=== PATIENT | male | born 1960 | race Caucasian/White ===

== ENCOUNTER → 2020-12-17 | Outpatient (CLI) | payer OTHER, MEDICAID ==
[2020-12-17 11:49] LABS: BASO % 0.2 % (0.0-1.0); EOS # 0.1 10^3/uL (0.0-0.5); EOS % 1.1 % (0.0-3.0); LYMPH # 1.3 10^3/uL (1.5-5.0); LYMPH % 15.5 % (24.0-44.0); MEAN CORPUSCULAR HEMOGLOBIN 29.5 pg (27.0-33.0); MEAN CORPUSCULAR HGB CONC 33.3 g/dl (32.0-36.5); MEAN CORPUSCULAR VOLUME 88.6 fl (80.0-96.0); MONO # 0.6 10^3/uL (0.0-0.8); MONO % 6.9 % (2.0-8.0); NEUTROPHILS # 6.5 10^3/uL (1.5-8.5); NEUTROPHILS % 76.1 % (36.0-66.0); PLATELET COUNT, AUTOMATED 296 10^3/uL (150-450); RED BLOOD COUNT 4.74 10^6/uL (4.30-6.10); WHITE BLOOD COUNT 8.5 10^3/uL (4.0-10.0)
[2020-12-17 12:25] LABS: ALBUMIN 3.9 GM/DL (3.2-5.2); ALT/SGPT 13 U/L (12-78); BILIRUBIN,TOTAL 0.7 MG/DL (0.2-1.0); BLOOD UREA NITROGEN 18 MG/DL (7-18); CALCIUM LEVEL 9.3 MG/DL (8.8-10.2); CARBON DIOXIDE LEVEL 28 MEQ/L (21-32); CHLORIDE LEVEL 106 MEQ/L (98-107); CHOLESTEROL LEVEL 145 MG/DL (<200); CHOLESTEROL RISK RATIO 2.735 (<5); CREATININE FOR GFR 0.94 MG/DL (0.70-1.30); GLOMERULAR FILTRATION RATE > 60.0 (>49); GLUCOSE, FASTING 90 MG/DL (70-100); HDL CHOLESTEROL 53 MG/DL (>40); LDL CHOLESTEROL 81 MG/DL (<100); MAGNESIUM LEVEL 1.9 MG/DL (1.8-2.4); NON-HDL-C 92 MG/DL; POTASSIUM SERUM 4.4 MEQ/L (3.5-5.1); SODIUM LEVEL 138 MEQ/L (136-145); TOTAL PROTEIN 7.1 GM/DL (6.4-8.2); TRIGLYCERIDES LEVEL 55 MG/DL (<150)
[2020-12-17 13:06] LABS: HEMOGLOBIN A1c 5.1 %
[2020-12-18 23:07] LABS: PSA TOTAL 0.6 ng/mL (0.0-4.0)
== END ==
LOC: M WUC 08:04
PROVIDERS: ATTEND Nurse Practitioner Family
DX: Z12.5 Encounter for screening for malignant neoplasm of prostate (principal); E78.2 Mixed hyperlipidemia; R25.2 Cramp and spasm; K22.70 Barrett's esophagus without dysplasia; Z79.899 Other long term (current) drug therapy

== ENCOUNTER 2020-12-27 10:00 | Outpatient (RCR) | payer OTHER, MEDICAID | END 2020-12-30 | LOC: M PT 10:00 | PROVIDERS: ATTEND Nurse Practitioner Family | DX: S88.112A Complete traumatic amputation at level between knee and ankle, left lower leg, initial encounter (principal) ==

== ENCOUNTER → 2021-05-07 | Outpatient (REF) | payer OTHER, MEDICAID | LOC: M SFHCLERA 11:35 | PROVIDERS: ATTEND Family Medicine | DX: R05.8 Other specified cough (principal) ==

== ENCOUNTER 2021-07-25 13:02 | Emergency (ER) | payer OTHER, MEDICAID ==
[~2021-07-25] VITALS: Ht 182.9 cm; Wt 57.3 kg
[2021-07-25 16:05] VITALS: BP 173/85
== END 2021-07-25 16:08 | disposition home or self-care (01) ==
LOC: M ED 13:02
DX: M79.661 Pain in right lower leg (principal); M50.223 Other cervical disc displacement at C6-C7 level; I73.1 Thromboangiitis obliterans [Buerger's disease]; I10 Essential (primary) hypertension; K21.9 Gastro-esophageal reflux disease without esophagitis; F17.200 Nicotine dependence, unspecified, uncomplicated; Z88.0 Allergy status to penicillin

== ENCOUNTER → 2021-09-03 | Outpatient (CLI) | payer MEDICAID, OTHER | LOC: M RAD 15:29 | PROVIDERS: ATTEND Orthopaedic Surgery | DX: M47.812 Spondylosis without myelopathy or radiculopathy, cervical region (principal) ==

== ENCOUNTER 2021-09-09 09:56 | Emergency (ER) | payer OTHER ==
[~2021-09-09] VITALS: Ht 182.9 cm; Wt 56.4 kg
[2021-09-09 09:56] VITALS: BP 158/72
[2021-09-09] MEDS ORDERED: LOSA50TA28 (11:03)
[2021-09-09] MEDS ORDERED: FINA5TAB2 (11:03)
[2021-09-09] MEDS ORDERED: SIMV10TA21 (11:03)
[2021-09-09] MEDS ORDERED: ALBU8.5H (11:03)
[2021-09-09] MEDS ORDERED: XARE20TA (11:03)
[2021-09-09] MEDS ORDERED: ALBU2.5V10 (11:03)
[2021-09-09] MEDS ORDERED: FAMO20TA5 (11:03)
[2021-09-09] MEDS ORDERED: PENT400T22 (11:03)
[2021-09-09] MEDS ORDERED: TRAZ-252 (11:03)
[2021-09-09] MEDS ORDERED: OMEP-173 (11:03)
[2021-09-09] MEDS ORDERED: ONDA8TAB8 (11:03)
[2021-09-09] MEDS ORDERED: DULO1CAP5 (11:03)
[2021-09-09] MEDS ORDERED: DULO1CAP6 (11:03)
== END 2021-09-09 15:24 | disposition left against medical advice (07) ==
LOC: M ED 09:56
DX: Z53.21 Procedure and treatment not carried out due to patient leaving prior to being seen by health care provider (principal)

== ENCOUNTER → 2022-04-07 | Outpatient (REF) | payer OTHER, MEDICAID ==
[~2022-04-07] MED LIST: ALBU2.5V10; ALBU8.5H; DULO1CAP5; DULO1CAP6; FAMO20TA5; FINA5TAB2; LOSA50TA28; OMEP-173; ONDA8TAB8; PENT400T22; SIMV10TA21; TRAZ-252; XARE20TA
== END ==
LOC: M SFHCPLAZ 10:00
PROVIDERS: ATTEND Physician Assistant
DX: R09.89 Other specified symptoms and signs involving the circulatory and respiratory systems (principal)

== ENCOUNTER 2022-07-18 22:46 | Emergency (ER) | payer OTHER, MEDICAID ==
[~2022-07-18] VITALS: Ht 182.9 cm; Wt 54.5 kg
[2022-07-18 23:44] LABS: BASO # 0.1 10^3/uL (0.0-0.2); BASO % 0.3 % (0.0-1.0); EOS # 0.1 10^3/uL (0.0-0.5); EOS % 0.9 % (0.0-3.0); HEMATOCRIT 39.4 % (42.0-52.0); HEMOGLOBIN 12.9 g/dl (13.5-17.5); LYMPH # 2.9 10^3/uL (1.5-5.0); LYMPH % 20.3 % (24.0-44.0); MEAN CORPUSCULAR HEMOGLOBIN 28.2 pg (27.0-33.0); MEAN CORPUSCULAR HGB CONC 32.7 g/dl (32.0-36.5); MONO # 1.2 10^3/uL (0.0-0.8); MONO % 8.2 % (2.0-8.0); NEUTROPHILS % 69.5 % (36.0-66.0); PLATELET COUNT, AUTOMATED 304 10^3/uL (150-450); RED BLOOD COUNT 4.58 10^6/uL (4.30-6.10); WHITE BLOOD COUNT 14.4 10^3/uL (4.0-10.0)
[2022-07-19 00:49] LABS: CK-MB VALUE MASS 2.2 NG/ML (<3.6)
[2022-07-19 00:52] LABS: ALBUMIN 3.6 G/DL (3.2-5.2); ALKALINE PHOSPHATASE 48 U/L (46-116); ALT/SGPT 11 U/L (7.0-40); AST/SGOT 15 U/L (<34); BILIRUBIN,DIRECT < 0.1 MG/DL (<0.4); BILIRUBIN,TOTAL 0.3 MG/DL (0.3-1.2); BLOOD UREA NITROGEN 10 MG/DL (9-23); CALCIUM LEVEL 8.9 MG/DL (8.3-10.6); CARBON DIOXIDE LEVEL 24 MMOL/L (20-31); CHLORIDE LEVEL 102 MMOL/L (98-107); CPK CREATINE PHOSPHOKINASE 83 U/L (46-171); CREATININE FOR GFR 0.78 MG/DL (0.70-1.30); GLOMERULAR FILTRATION RATE > 60.0 (>49); GLUCOSE, FASTING 83 MG/DL (74-106); MB/CK RELATIVE INDEX 2.65 (< OR =4); POTASSIUM SERUM 3.8 MMOL/L (3.5-5.1); SODIUM LEVEL 136 MMOL/L (136-145); TOTAL PROTEIN 6.7 G/DL (5.7-8.2)
[2022-07-19] MEDS ORDERED: IPRATROPIUM 0.5MG/ALBUTEROL 2.5MG INH SOL UD 3ML (DUONEB) NEB ONE (00:55)
[2022-07-19 01:04] VITALS: BP 106/59
[2022-07-19] MEDS ORDERED: ISOVUE-370 76% 100ML VIAL As Ordered ONE (02:05)
[2022-07-19 02:24] LABS: CK-MB VALUE MASS 1.8 NG/ML (<3.6)
[2022-07-19 02:28] LABS: MB/CK RELATIVE INDEX 2.6 (< OR =4)
[2022-07-19] MEDS ORDERED: BENZONATATE 100MG CAPSULE PO ONE (03:45)
[2022-07-19] MEDS ORDERED: guaiFENesin ER 600 MG TAB PO ONE (03:45)
[2022-07-19] MEDS ORDERED: MUCI600T31 PO (03:47)
[2022-07-19] MEDS ORDERED: BENZ200C70 PO (03:47)
== END 2022-07-19 04:35 | disposition home or self-care (01) ==
LOC: EDBD 22:46 → M ED 22:46
DX: R05.9 Cough, unspecified (principal); R91.8 Other nonspecific abnormal finding of lung field; I10 Essential (primary) hypertension; E78.5 Hyperlipidemia, unspecified; J44.9 Chronic obstructive pulmonary disease, unspecified; K21.9 Gastro-esophageal reflux disease without esophagitis; F17.200 Nicotine dependence, unspecified, uncomplicated; Z88.0 Allergy status to penicillin; Z79.899 Other long term (current) drug therapy; Z79.51 Long term (current) use of inhaled steroids
CPT/HCPCS: 36415; 71046; 71275; 80048; 80076; 82550; 82553; 83880; 84484; 85025; 85379; 87486; 87581; 87633; 87798; 93005; 94640; 94760; 99284; Q9967

== ENCOUNTER 2022-07-30 21:24 | Emergency (ER) | payer OTHER, MEDICAID ==
[~2022-07-30] VITALS: Ht 182.9 cm; Wt 53.6 kg
[~2022-07-30 21:24] MED LIST changes: +BENZ200C70 PO; +MUCI600T31 PO
[2022-07-31] MEDS ORDERED: IPRATROPIUM 0.5MG/ALBUTEROL 2.5MG INH SOL UD 3ML (DUONEB) NEB ONE (00:50)
[2022-07-31] MEDS ORDERED: NS 1,000 ML IV ONE (00:50)
[2022-07-31] MEDS ORDERED: methylPREDNISolone 125MG 2ML VIAL IV ONE (00:50)
[2022-07-31 01:15] VITALS: BP 119/57
[2022-07-31 01:44] LABS: BASO # 0.1 10^3/uL (0.0-0.2); BASO % 0.5 % (0.0-1.0); EOS # 0.1 10^3/uL (0.0-0.5); HEMATOCRIT 34.5 % (42.0-52.0); HEMOGLOBIN 11.6 g/dl (13.5-17.5); LYMPH # 2.3 10^3/uL (1.5-5.0); LYMPH % 21.6 % (24.0-44.0); MEAN CORPUSCULAR HEMOGLOBIN 28.4 pg (27.0-33.0); MEAN CORPUSCULAR HGB CONC 33.6 g/dl (32.0-36.5); MEAN CORPUSCULAR VOLUME 84.6 fl (80.0-96.0); MONO # 0.8 10^3/uL (0.0-0.8); MONO % 7.7 % (2.0-8.0); NEUTROPHILS # 7.2 10^3/uL (1.5-8.5); NEUTROPHILS % 68.7 % (36.0-66.0); PLATELET COUNT, AUTOMATED 250 10^3/uL (150-450); RED BLOOD COUNT 4.08 10^6/uL (4.30-6.10); WHITE BLOOD COUNT 10.5 10^3/uL (4.0-10.0)
[2022-07-31 02:00] LABS: ALBUMIN 3.4 G/DL (3.2-5.2); BILIRUBIN,DIRECT 0.1 MG/DL (<0.4); BILIRUBIN,TOTAL 0.4 MG/DL (0.3-1.2); CK-MB VALUE MASS 1.5 NG/ML (<3.6)
[2022-07-31 02:01] LABS: MB/CK RELATIVE INDEX 1.85 (< OR =4)
[2022-07-31] MEDS ORDERED: LORazepam 2 MG/ML 1ML VIAL IV STA (02:35)
[2022-07-31] MEDS ORDERED: PULM90IN INH (03:56)
[2022-07-31] MEDS ORDERED: BUDESONIDE 180MCG INHALER (PULMICORT FLEXHALER) INH STA (03:58)
== END 2022-07-31 04:21 | disposition home or self-care (01) ==
LOC: M ED 21:24
DX: J44.9 Chronic obstructive pulmonary disease, unspecified (principal); R05.9 Cough, unspecified; I10 Essential (primary) hypertension; E78.5 Hyperlipidemia, unspecified; K21.9 Gastro-esophageal reflux disease without esophagitis; R91.8 Other nonspecific abnormal finding of lung field; Z79.01 Long term (current) use of anticoagulants; F17.200 Nicotine dependence, unspecified, uncomplicated; Z88.0 Allergy status to penicillin; Z79.899 Other long term (current) drug therapy; Z79.51 Long term (current) use of inhaled steroids
CPT/HCPCS: 71046; 80047; 80076; 82550; 82553; 83605; 83880; 84484; 85025; 87040; 87077; 87486; 87581; 87633; 87798; 93005; 94640; 96374; 96375; 99284; J2930

== ENCOUNTER → 2022-09-03 | Outpatient (CLI) | payer OTHER, MEDICAID ==
[~2022-09-03] MED LIST changes: -ALBU2.5V10; +ALBU2.5V10 INH; -ALBU8.5H; +ALBU8.5H INH; +BREO1INH3 INH; -DULO1CAP6; +DULO1CAP6 PO; -FAMO20TA5; +FAMO20TA5 PO; -FINA5TAB2; +FINA5TAB2 PO; +GUAI600T12 PO; +HOME MED LIST COMPLETE! XX SCH; +LIDOCAINE 1% MDV 20ML VIAL As Ordered ONE; -LOSA50TA28; +LOSA50TA28 PO; +MULT400T10 PO; +NICO1DIS9 TD; -OMEP-173; +OMEP-173 PO; -ONDA8TAB8; +ONDA8TAB8 PO; +PULM90IN INH; -SIMV10TA21; +SIMV10TA21 PO; +SPIR1CAP INH; -TRAZ-252; +TRAZ-252 PO; -XARE20TA; +XARE20TA PO
[2022-09-03 08:17] VITALS: TEMP 98.1
[2022-09-03 09:03] LABS: HEMATOCRIT 37.7 % (42.0-52.0); HEMOGLOBIN 12.3 g/dl (13.5-17.5); MEAN CORPUSCULAR HEMOGLOBIN 28.3 pg (27.0-33.0); MEAN CORPUSCULAR HGB CONC 32.6 g/dl (32.0-36.5); MEAN CORPUSCULAR VOLUME 86.7 fl (80.0-96.0); PLATELET COUNT, AUTOMATED 332 10^3/uL (150-450); RED BLOOD COUNT 4.35 10^6/uL (4.30-6.10); WHITE BLOOD COUNT 13.2 10^3/uL (4.0-10.0)
[2022-09-03 09:08] LABS: INR 0.9; PROTHROMBIN TIME 12.3 SECONDS (12.5-14.5)
[2022-09-03 09:09] LABS: PARTIAL THROMBOPLASTIN TIME 28.1 SECONDS (24.8-34.2)
[2022-09-03 12:10] VITALS: BP 100/56; O2SAT 98
== END ==
LOC: M IRPRO 07:47
PROVIDERS: ATTEND Internal Medicine Pulmonary Disease
DX: C34.31 Malignant neoplasm of lower lobe, right bronchus or lung (principal); R91.1 Solitary pulmonary nodule; J95.811 Postprocedural pneumothorax

== ENCOUNTER → 2022-09-23 | Outpatient (CLI) | payer OTHER, MEDICAID ==
[~2022-09-23] MED LIST changes: -HOME MED LIST COMPLETE! XX SCH; -LIDOCAINE 1% MDV 20ML VIAL As Ordered ONE
== END ==
LOC: M RAD 08:00
PROVIDERS: ATTEND Internal Medicine Gastroenterology
DX: R13.10 Dysphagia, unspecified (principal); R05.9 Cough, unspecified

== ENCOUNTER → 2022-10-08 | Outpatient (CLI) | payer OTHER, MEDICAID ==
[~2022-10-08] MED LIST changes: +LEVO1TAB40 PO; +PRED10TA2 PO
== END ==
LOC: M ONCR 14:09
PROVIDERS: ATTEND General Practice
DX: C34.31 Malignant neoplasm of lower lobe, right bronchus or lung (principal); J44.9 Chronic obstructive pulmonary disease, unspecified; Z79.51 Long term (current) use of inhaled steroids; Z79.899 Other long term (current) drug therapy; Z86.59 Personal history of other mental and behavioral disorders; Z87.891 Personal history of nicotine dependence

== ENCOUNTER 2022-10-17 21:54 | Emergency (ER) | payer OTHER, MEDICAID ==
[~2022-10-17] VITALS: Ht 182.9 cm; Wt 52.7 kg
[2022-10-18 00:35] LABS: BASO % 0.2 % (0.0-1.0); EOS # 0.1 10^3/uL (0.0-0.5); EOS % 0.5 % (0.0-3.0); HEMATOCRIT 35.4 % (42.0-52.0); HEMOGLOBIN 11.5 g/dl (13.5-17.5); LYMPH # 2.4 10^3/uL (1.5-5.0); LYMPH % 18.1 % (24.0-44.0); MEAN CORPUSCULAR HEMOGLOBIN 27.7 pg (27.0-33.0); MEAN CORPUSCULAR HGB CONC 32.5 g/dl (32.0-36.5); MEAN CORPUSCULAR VOLUME 85.3 fl (80.0-96.0); MONO # 1.1 10^3/uL (0.0-0.8); MONO % 8.6 % (2.0-8.0); NEUTROPHILS # 9.4 10^3/uL (1.5-8.5); NEUTROPHILS % 71.5 % (36.0-66.0); PLATELET COUNT, AUTOMATED 311 10^3/uL (150-450); RED BLOOD COUNT 4.15 10^6/uL (4.30-6.10); WHITE BLOOD COUNT 13.1 10^3/uL (4.0-10.0)
[2022-10-18 00:58] LABS: CK-MB VALUE MASS 2.7 NG/ML (<3.6)
[2022-10-18 01:00] LABS: ALBUMIN 3.5 G/DL (3.2-5.2); ALKALINE PHOSPHATASE 42 U/L (46-116); ALT/SGPT 10 U/L (7.0-40); AST/SGOT 13 U/L (<34); BILIRUBIN,DIRECT 0.2 MG/DL (<0.4); BILIRUBIN,TOTAL 0.8 MG/DL (0.3-1.2); BLOOD UREA NITROGEN 9 MG/DL (9-23); CALCIUM LEVEL 8.9 MG/DL (8.3-10.6); CARBON DIOXIDE LEVEL 31 MMOL/L (20-31); CHLORIDE LEVEL 105 MMOL/L (98-107); CPK CREATINE PHOSPHOKINASE 143 U/L (46-171); CREATININE FOR GFR 0.91 MG/DL (0.70-1.30); GLOMERULAR FILTRATION RATE > 60.0 (>49); GLUCOSE, FASTING 87 MG/DL (74-106); MB/CK RELATIVE INDEX 1.88 (< OR =4); POTASSIUM SERUM 3.7 MMOL/L (3.5-5.1); SODIUM LEVEL 140 MMOL/L (136-145); TOTAL PROTEIN 6.3 G/DL (5.7-8.2)
[2022-10-18] MEDS ORDERED: ISOVUE-370 76% 100ML VIAL As Ordered ONE ×2 (04:22→04:31)
[2022-10-18 04:31] LABS: CK-MB VALUE MASS 2.9 NG/ML (<3.6); MB/CK RELATIVE INDEX 1.98 (< OR =4)
[2022-10-18] MEDS ORDERED: GUAI1SOL2 PO (06:34)
[2022-10-18 13:03] VITALS: BP 142/64; TEMP 97.6; O2SAT 94
== END 2022-10-18 13:05 | disposition home or self-care (01) ==
LOC: M ED 21:54
DX: R05.9 Cough, unspecified (principal); Z59.00 Homelessness unspecified; K21.9 Gastro-esophageal reflux disease without esophagitis; J44.9 Chronic obstructive pulmonary disease, unspecified; N40.0 Benign prostatic hyperplasia without lower urinary tract symptoms; I73.1 Thromboangiitis obliterans [Buerger's disease]; C34.91 Malignant neoplasm of unspecified part of right bronchus or lung; Z89.512 Acquired absence of left leg below knee; Z87.891 Personal history of nicotine dependence; Z88.0 Allergy status to penicillin; Z79.01 Long term (current) use of anticoagulants; E78.00 Pure hypercholesterolemia, unspecified; Z79.899 Other long term (current) drug therapy; Z79.51 Long term (current) use of inhaled steroids; Z79.52 Long term (current) use of systemic steroids
CPT/HCPCS: 36415; 71275; 80048; 80076; 82550; 82553; 84484; 85025; 87486; 87581; 87633; 87798; 93005; 93041; 99285; Q9967

== ENCOUNTER 2022-11-07 01:24 | Emergency (ER) | payer OTHER, MEDICAID ==
[~2022-11-07] VITALS: Ht 185.4 cm; Wt 51.7 kg
[~2022-11-07 01:24] MED LIST changes: +GUAI1SOL2 PO
[2022-11-07 01:26] VITALS: BP 152/79; TEMP 98.5
[2022-11-07 02:52] LABS: BLOOD UREA NITROGEN 9 MG/DL (9-23); CALCIUM LEVEL 8.6 MG/DL (8.3-10.6); CARBON DIOXIDE LEVEL 30 MMOL/L (20-31); CHLORIDE LEVEL 104 MMOL/L (98-107); CK-MB VALUE MASS 1.9 NG/ML (<3.6); CPK CREATINE PHOSPHOKINASE 152 U/L (46-171); CREATININE FOR GFR 0.87 MG/DL (0.70-1.30); GLOMERULAR FILTRATION RATE > 60.0 (>49); GLUCOSE, FASTING 95 MG/DL (74-106); MB/CK RELATIVE INDEX 1.25 (< OR =4); POTASSIUM SERUM 3.7 MMOL/L (3.5-5.1); SODIUM LEVEL 137 MMOL/L (136-145)
[2022-11-07 02:54] LABS: BASO % 0.4 % (0.0-1.0); EOS # 0.1 10^3/uL (0.0-0.5); EOS % 1.3 % (0.0-3.0); HEMATOCRIT 33.1 % (42.0-52.0); HEMOGLOBIN 10.9 g/dl (13.5-17.5); LYMPH % 23.2 % (24.0-44.0); MEAN CORPUSCULAR HEMOGLOBIN 27.9 pg (27.0-33.0); MEAN CORPUSCULAR HGB CONC 32.9 g/dl (32.0-36.5); MEAN CORPUSCULAR VOLUME 84.7 fl (80.0-96.0); MONO # 0.7 10^3/uL (0.0-0.8); MONO % 7.9 % (2.0-8.0); NEUTROPHILS # 5.7 10^3/uL (1.5-8.5); NEUTROPHILS % 66.7 % (36.0-66.0); PLATELET COUNT, AUTOMATED 314 10^3/uL (150-450); RED BLOOD COUNT 3.91 10^6/uL (4.30-6.10); WHITE BLOOD COUNT 8.5 10^3/uL (4.0-10.0)
[2022-11-07] MEDS ORDERED: ASPIRIN 81MG CHEW TABLET PO ONE (03:40)
[2022-11-07] MEDS ORDERED: ISOVUE-370 76% 100ML VIAL As Ordered ONE (03:42)
[2022-11-07 04:01] LABS: CK-MB VALUE MASS 1.8 NG/ML (<3.6)
[2022-11-07 04:03] LABS: MB/CK RELATIVE INDEX 1.16 (< OR =4)
[2022-11-07 05:58] LABS: CK-MB VALUE MASS 1.5 NG/ML (<3.6)
[2022-11-07 06:00] LABS: MB/CK RELATIVE INDEX 1.05 (< OR =4)
[2022-11-07 08:30] VITALS: O2SAT 96
== END 2022-11-07 08:50 | disposition home or self-care (01) ==
LOC: M ED 01:24
DX: R07.9 Chest pain, unspecified (principal); F17.200 Nicotine dependence, unspecified, uncomplicated; I10 Essential (primary) hypertension; J44.9 Chronic obstructive pulmonary disease, unspecified; Z59.00 Homelessness unspecified; Z79.52 Long term (current) use of systemic steroids; Z79.811 Long term (current) use of aromatase inhibitors; Z79.899 Other long term (current) drug therapy
CPT/HCPCS: 36415; 71045; 71275; 80048; 82550; 82553; 83880; 84484; 85025; 93005; 93041; 94760; 99284; Q9967

== ENCOUNTER 2022-12-15 21:19 | Emergency (ER) | payer OTHER, MEDICAID ==
[~2022-12-15] VITALS: Ht 182.9 cm; Wt 46.8 kg
[~2022-12-15 21:19] MED LIST changes: +HYDR-3713 PO
[2022-12-15 21:34] VITALS: TEMP 98.5
[2022-12-15 22:50] LABS: VENOUS BASE EXCESS 0.9 (-2.0-2.0); VENOUS HCO3 28.9 MMOL/L (23.0-27.0); VENOUS O2 SATURATION 72.6 % (60.0-80.0); VENOUS PARTIAL PRESSURE CO2 62.4 mmHg (38.0-50.0); VENOUS PARTIAL PRESSURE O2 40.6 mmHg (30.0-50.0); VENOUS PH 7.283 UNITS (7.330-7.430); VENOUS STANDARD HCO3 24.7 MMOL/L; VENOUS TOTAL CO2 30.8 MMOL/L (24.0-28.0)
[2022-12-15 22:56] LABS: BASO # 0.1 10^3/uL (0.0-0.2); BASO % 0.5 % (0.0-1.0); EOS # 0.1 10^3/uL (0.0-0.5); EOS % 0.9 % (0.0-3.0); HEMATOCRIT 35.5 % (42.0-52.0); HEMOGLOBIN 11.7 g/dl (13.5-17.5); LYMPH # 2.3 10^3/uL (1.5-5.0); LYMPH % 22.6 % (24.0-44.0); MEAN CORPUSCULAR HEMOGLOBIN 28.1 pg (27.0-33.0); MEAN CORPUSCULAR VOLUME 85.1 fl (80.0-96.0); MONO # 0.7 10^3/uL (0.0-0.8); MONO % 7.1 % (2.0-8.0); NEUTROPHILS % 68.6 % (36.0-66.0); PLATELET COUNT, AUTOMATED 330 10^3/uL (150-450); RED BLOOD COUNT 4.17 10^6/uL (4.30-6.10); WHITE BLOOD COUNT 10.2 10^3/uL (4.0-10.0)
[2022-12-15 23:22] LABS: CK-MB VALUE MASS 2.9 NG/ML (<3.6)
[2022-12-15 23:24] LABS: CPK CREATINE PHOSPHOKINASE 117 U/L (46-171); MB/CK RELATIVE INDEX 2.47 (< OR =4)
[2022-12-15 23:25] LABS: ALBUMIN 3.6 G/DL (3.2-5.2); ALKALINE PHOSPHATASE 61 U/L (46-116); ALT/SGPT 13 U/L (7.0-40); AST/SGOT 16 U/L (<34); BILIRUBIN,DIRECT 0.1 MG/DL (<0.4); BILIRUBIN,TOTAL 0.3 MG/DL (0.3-1.2); BLOOD UREA NITROGEN 13 MG/DL (9-23); CALCIUM LEVEL 8.5 MG/DL (8.3-10.6); CARBON DIOXIDE LEVEL 30 MMOL/L (20-31); CHLORIDE LEVEL 106 MMOL/L (98-107); CREATININE FOR GFR 0.79 MG/DL (0.70-1.30); GLOMERULAR FILTRATION RATE > 60.0 (>49); GLUCOSE, FASTING 94 MG/DL (74-106); SODIUM LEVEL 142 MMOL/L (136-145); TOTAL PROTEIN 5.5 G/DL (5.7-8.2)
[2022-12-15 23:27] LABS: THYROID STIMULATING HORMONE 1.188 uIU/ML (0.55-4.78)
[2022-12-15 23:31] LABS: PROCALCITONIN <0.04 ng/ml
[2022-12-15] MEDS ORDERED: ALBUTEROL SULFATE 2.5MG/0.5ML INH NEB SOLN INH ONE (23:35)
[2022-12-15] MEDS ORDERED: methylPREDNISolone 40MG 1ML VIAL IV ONE (23:35)
[2022-12-15] MEDS ORDERED: IPRATROPIUM 0.5MG/ALBUTEROL 2.5MG INH SOL UD 3ML (DUONEB) NEB ONE (23:35)
[2022-12-15] MEDS ORDERED: PRED10TA2 PO (23:40)
[2022-12-15 23:45] LABS: INR 1.96; PROTHROMBIN TIME 21.8 SECONDS (12.5-14.5)
[2022-12-16 00:30] LABS: CK-MB VALUE MASS 2.5 NG/ML (<3.6)
[2022-12-16 00:31] LABS: MB/CK RELATIVE INDEX 2.13 (< OR =4)
[2022-12-16 01:15] VITALS: BP 139/63
[2022-12-16 01:34] VITALS: O2SAT 95
== END 2022-12-16 02:00 | disposition home or self-care (01) ==
LOC: EDBD 21:19 → M ED 21:19
DX: J44.1 Chronic obstructive pulmonary disease with (acute) exacerbation (principal); I10 Essential (primary) hypertension; K21.9 Gastro-esophageal reflux disease without esophagitis; N40.0 Benign prostatic hyperplasia without lower urinary tract symptoms; Z86.718 Personal history of other venous thrombosis and embolism; Z87.891 Personal history of nicotine dependence; Z79.899 Other long term (current) drug therapy; Z88.0 Allergy status to penicillin
CPT/HCPCS: 71045; 80048; 80076; 82550; 82553; 82803; 83605; 83880; 84145; 84443; 84484; 85025; 85610; 87040; 87486; 87581; 87633; 87798; 93005; 93041; 94640; 94760; 96374; 99285; J2920

== ENCOUNTER 2022-12-19 18:54 | Inpatient (IN) | payer OTHER, MEDICAID ==
[~2022-12-19] VITALS: Ht 182.9 cm; Wt 49.2 kg
[2022-12-19] MEDS ORDERED: ONDANSETRON 4MG 2ML VIAL IV ONE (19:10)
[2022-12-19] MEDS ORDERED: NS 1,000 ML IV ONE (19:10)
[2022-12-19 19:39] LABS: BASO % 0.1 % (0.0-1.0); HEMATOCRIT 35.3 % (42.0-52.0); HEMOGLOBIN 11.5 g/dl (13.5-17.5); LYMPH # 0.5 10^3/uL (1.5-5.0); LYMPH % 4.8 % (24.0-44.0); MEAN CORPUSCULAR HEMOGLOBIN 27.6 pg (27.0-33.0); MEAN CORPUSCULAR HGB CONC 32.6 g/dl (32.0-36.5); MEAN CORPUSCULAR VOLUME 84.9 fl (80.0-96.0); MONO # 0.2 10^3/uL (0.0-0.8); MONO % 1.6 % (2.0-8.0); NEUTROPHILS # 9.2 10^3/uL (1.5-8.5); NEUTROPHILS % 93.2 % (36.0-66.0); PLATELET COUNT, AUTOMATED 361 10^3/uL (150-450); RED BLOOD COUNT 4.16 10^6/uL (4.30-6.10); WHITE BLOOD COUNT 9.9 10^3/uL (4.0-10.0)
[2022-12-19] MEDS ORDERED: CHARCOAL ACTIVATED LIQUID 25GM/120ML BTL PO ONE (19:50)
[2022-12-19 20:11] LABS: INR 1.14; PARTIAL THROMBOPLASTIN TIME 29.1 SECONDS (24.8-34.2); PROTHROMBIN TIME 14.3 SECONDS (12.5-14.5)
[2022-12-19 20:20] LABS: RSV AMPLIFICATION NEGATIVE (NEGATIVE)
[2022-12-20] MEDS ORDERED: HOME MED LIST COMPLETE! XX SCH (02:55)
[2022-12-20] MEDS ORDERED: MOM 30ML SUSPENSION UDC PO PRN (04:40)
[2022-12-20] MEDS ORDERED: ACETAMINOPHEN TAB 650MG DOSE (2X325MG) PO PRN (04:40)
[2022-12-20] MEDS ORDERED: ALBUTEROL 90 MCG/ACT 8GM HFA INHALER INH PRN (04:45)
[2022-12-20 04:50] VITALS: BP 141/69; TEMP 97.7; O2SAT 99
[2022-12-20] MEDS: LR 1,000 ML IV SCH ×2 (05:25→17:20)
[2022-12-20 07:23] LABS: BLOOD UREA NITROGEN 10 MG/DL (7-21); CALCIUM LEVEL 8.9 MG/DL (8.8-10.2); CARBON DIOXIDE LEVEL 23 MEQ/L (22-30); CHLORIDE LEVEL 107 MEQ/L (98-107); CREATININE FOR GFR 0.7 MG/DL (0.7-1.5); GLOMERULAR FILTRATION RATE > 60.0 (>49); GLUCOSE, FASTING 176 MG/DL; POTASSIUM SERUM 4.8 MEQ/L (3.6-5.0); SODIUM LEVEL 143 MEQ/L (134-153)
[2022-12-20 07:24] LABS: ALBUMIN 3.7 G/DL (3.9-5.0); ALKALINE PHOSPHATASE 47 U/L (40-129); ALT/SGPT 10 U/L (1-41); AST/SGOT 18 U/L (5-40); BILIRUBIN,DIRECT < 0.2 MG/DL (0.1-0.4); BILIRUBIN,TOTAL < 0.7 MG/DL (0.2-1.3); CPK CREATINE PHOSPHOKINASE 82 U/L (30-170); TOTAL PROTEIN 5.8 G/DL (6.3-8.2)
[2022-12-20 07:31] LABS: ETHYL ALCOHOL (ETHANOL) 0.01 % (0.00-0.01)
[2022-12-20 07:40] VITALS: BP 127/69; TEMP 98.3; O2SAT 95
[2022-12-20 07:50] LABS: ETHYL ALCOHOL (ETHANOL) 0.01 % (0.00-0.01)
[2022-12-20 07:52] LABS: ALBUMIN 4.2 G/DL (3.9-5.0); ALKALINE PHOSPHATASE 50 U/L (40-129); ALT/SGPT 12 U/L (1-41); AST/SGOT 31 U/L (5-40); BILIRUBIN,TOTAL < 0.7 MG/DL (0.2-1.3); CPK CREATINE PHOSPHOKINASE 123 U/L (30-170); TOTAL PROTEIN 6.6 G/DL (6.3-8.2)
[2022-12-20 07:53] LABS: BILIRUBIN,DIRECT < 0.2 MG/DL (0.1-0.4); THYROID STIMULATING HORMONE 0.13 UIU/ML (0.47-5.01)
[2022-12-20 08:02] LABS: AMPHETAMINES LEVEL URINE NEGATIVE (NEGATIVE); BARBITURATES URINE NEGATIVE (NEGATIVE); BENZODIAZEPINES URINE NEGATIVE (NEGATIVE); CANNABINOIDS URINE POSITIVE (NEGATIVE); COCAINE METABOLITE URINE NEGATIVE (NEGATIVE); OPIATES URINE NEGATIVE (NEGATIVE); PHENCYCLIDINE URINE NEGATIVE (NEGATIVE)
[2022-12-20] MEDS: DOCUSATE SODIUM 100MG CAPSULE PO SCH ×2 (08:05→20:08)
[2022-12-20] MEDS: DULoxetine 30MG CAPSULE (CYMBALTA) PO SCH ×2 (08:06→20:08)
[2022-12-20] MEDS: FINASTERIDE 5MG TAB PO SCH (08:06)
[2022-12-20] MEDS: TIOTROPIUM INHALER/CAPSULE (SPIRIVA) INH SCH (09:15)
[2022-12-20] MEDS: ADVAIR HFA 230/21MCG INHALER INH SCH ×2 (09:15→20:14)
[2022-12-20] MEDS: OMEPRAZOLE 20MG CAP PO SCH (10:10)
[2022-12-20] MEDS: LOSARTAN 25 MG TAB PO SCH (10:10)
[2022-12-20] MEDS: guaiFENesin ER TABLET 600 MG TAB PO SCH ×2 (11:15→20:08)
[2022-12-20 11:20] LABS: BASO % 0.2 % (0.0-1.0); EOS % 0.2 % (0.0-3.0); HEMATOCRIT 35.2 % (42.0-52.0); HEMOGLOBIN 11.5 g/dl (13.5-17.5); LYMPH # 2.5 10^3/uL (1.5-5.0); LYMPH % 19.3 % (24.0-44.0); MEAN CORPUSCULAR HEMOGLOBIN 27.6 pg (27.0-33.0); MEAN CORPUSCULAR HGB CONC 32.7 g/dl (32.0-36.5); MEAN CORPUSCULAR VOLUME 84.4 fl (80.0-96.0); MONO % 7.9 % (2.0-8.0); NEUTROPHILS # 9.3 10^3/uL (1.5-8.5); PLATELET COUNT, AUTOMATED 316 10^3/uL (150-450); RED BLOOD COUNT 4.17 10^6/uL (4.30-6.10)
[2022-12-20 12:00] VITALS: BP 109/55; TEMP 98.1; O2SAT 97
[2022-12-20 15:49] VITALS: BP 103/55; TEMP 97.5; O2SAT 97
[2022-12-20] MEDS ORDERED: RIVAROXABAN 20MG TAB (XARELTO) PO SCH (18:00)
[2022-12-20 19:24] VITALS: BP 105/57; TEMP 97.8; O2SAT 98
[2022-12-20] MEDS ORDERED: SIMVASTATIN 10 MG TAB PO SCH (21:00)
[2022-12-20 23:17] VITALS: BP 112/57; TEMP 97.6; O2SAT 98
[2022-12-21 03:27] VITALS: BP 130/64; TEMP 97.3; O2SAT 97
[2022-12-21] MEDS: ADVAIR HFA 230/21MCG INHALER INH SCH (07:19)
[2022-12-21] MEDS: TIOTROPIUM INHALER/CAPSULE (SPIRIVA) INH SCH (07:19)
[2022-12-21 07:35] VITALS: BP 128/70; TEMP 98.6; O2SAT 96
[2022-12-21] MEDS: OMEPRAZOLE 20MG CAP PO SCH (08:20)
[2022-12-21] MEDS: DULoxetine 30MG CAPSULE (CYMBALTA) PO SCH (08:21)
[2022-12-21] MEDS: guaiFENesin ER TABLET 600 MG TAB PO SCH (08:21)
[2022-12-21] MEDS: FINASTERIDE 5MG TAB PO SCH (08:21)
[2022-12-21 08:22] VITALS: BP 128/70
[2022-12-21] MEDS: LOSARTAN 25 MG TAB PO SCH (08:22)
[2022-12-21] MEDS: DOCUSATE SODIUM 100MG CAPSULE PO SCH (08:26)
[2022-12-21] MEDS ORDERED: INFLUENZA QUADRIVALENT PF VACCINE 0.5ML SYRINGE IM.IMMUN ONE (09:00)
[2022-12-21 11:12] VITALS: BP 126/70; TEMP 98; O2SAT 98
[2022-12-21 11:30] LABS: BLOOD UREA NITROGEN 13 MG/DL (7-21); GLUCOSE, FASTING 81 MG/DL
[2022-12-21 11:31] LABS: ALKALINE PHOSPHATASE 54 U/L (40-129); ALT/SGPT 10 U/L (1-41); AST/SGOT 15 U/L (5-40); CALCIUM LEVEL 9.6 MG/DL (8.8-10.2); CARBON DIOXIDE LEVEL 25 MEQ/L (22-30); CHLORIDE LEVEL 98 MEQ/L (98-107); CREATININE FOR GFR 0.7 MG/DL (0.7-1.5); GLOMERULAR FILTRATION RATE > 60.0 (>49); POTASSIUM SERUM 3.8 MEQ/L (3.6-5.0); SODIUM LEVEL 139 MEQ/L (134-153)
[2022-12-21 11:32] LABS: ALBUMIN 4.1 G/DL (3.9-5.0); BILIRUBIN,TOTAL < 0.7 MG/DL (0.2-1.3); FREE T4 1.23 NG/DL (0.93-1.70); TOTAL PROTEIN 6.5 G/DL (6.3-8.2)
[2022-12-21 15:08] VITALS: BP 126/66; TEMP 98; O2SAT 98
== END 2022-12-21 16:48 | DRG 918 ==
LOC: EDBD 18:54 → M ED 18:54 → M ED INP 12-20 03:24 → ENRESERVTM 12-20 04:12 → ENRESERVDT 12-20 04:12 → M PCU 12-20 04:49
PROVIDERS: ADMIT Family Medicine; ATTEND Internal Medicine
DX: T38.0X2A Poisoning by glucocorticoids and synthetic analogues, intentional self-harm, initial encounter (principal); C34.31 Malignant neoplasm of lower lobe, right bronchus or lung; E46 Unspecified protein-calorie malnutrition; Z68.1 Body mass index [BMI] 19.9 or less, adult; Z59.01 Sheltered homelessness; T43.212A Poisoning by selective serotonin and norepinephrine reuptake inhibitors, intentional self-harm, initial encounter; T47.0X2A Poisoning by histamine H2-receptor blockers, intentional self-harm, initial encounter; I73.1 Thromboangiitis obliterans [Buerger's disease]; K21.9 Gastro-esophageal reflux disease without esophagitis; F32.9 Major depressive disorder, single episode, unspecified; J44.9 Chronic obstructive pulmonary disease, unspecified; F41.9 Anxiety disorder, unspecified; F42.9 Obsessive-compulsive disorder, unspecified; E78.5 Hyperlipidemia, unspecified; K59.00 Constipation, unspecified; N40.0 Benign prostatic hyperplasia without lower urinary tract symptoms; Z87.891 Personal history of nicotine dependence; Z79.01 Long term (current) use of anticoagulants; Z79.899 Other long term (current) drug therapy; Z88.0 Allergy status to penicillin; Z63.5 Disruption of family by separation and divorce

== ENCOUNTER 2022-12-21 15:35 | Inpatient (IN) | payer OTHER, MEDICAID ==
[~2022-12-21] VITALS: Ht 182.9 cm; Wt 49.2 kg
[2022-12-21] MEDS ORDERED: IBUPROFEN 400MG TAB PO PRN (15:50)
[2022-12-21] MEDS ORDERED: MOM 30ML SUSPENSION UDC PO PRN (15:50)
[2022-12-21] MEDS ORDERED: MAALOX 30 ML SUSP *UDC PO PRN (15:50)
[2022-12-21] MEDS ORDERED: diphenhydrAMINE 25MG CAP PO PRN (15:50)
[2022-12-21 17:00] VITALS: BP 126/62; TEMP 98.1; O2SAT 97
[2022-12-21] MEDS ORDERED: ALBUTEROL SULFATE 2.5MG/0.5ML INH NEB SOLN INH PRN (18:25)
[2022-12-21] MEDS ORDERED: ALBUTEROL 90 MCG/ACT 8GM HFA INHALER INH PRN (18:25)
[2022-12-21] MEDS: traZODone 50 MG TAB PO PRN (21:02)
[2022-12-21] MEDS: SIMVASTATIN 10 MG TAB PO SCH (21:02)
[2022-12-21] MEDS: RIVAROXABAN 20MG TAB (XARELTO) PO SCH (21:02)
[2022-12-21] MEDS: ADVAIR HFA 230/21MCG INHALER INH SCH (21:03)
[2022-12-22 05:59] VITALS: BP 110/52; TEMP 97.4; O2SAT 98
[2022-12-22] MEDS: DULoxetine 30MG CAPSULE (CYMBALTA) PO SCH (09:52)
[2022-12-22] MEDS: OMEPRAZOLE 20MG CAP PO SCH (09:52)
[2022-12-22] MEDS: MULTIVITAMINS/MINERALS THERAP 1 TAB PO SCH (09:52)
[2022-12-22] MEDS: LOSARTAN 25 MG TAB PO SCH (09:53)
[2022-12-22] MEDS: FINASTERIDE 5MG TAB PO SCH (09:53)
[2022-12-22] MEDS: ADVAIR HFA 230/21MCG INHALER INH SCH ×2 (09:54→20:55)
[2022-12-22] MEDS: TIOTROPIUM INHALER/CAPSULE (SPIRIVA) INH SCH (10:27)
[2022-12-22 15:54] VITALS: BP 116/60; TEMP 98.7
[2022-12-22] MEDS: RIVAROXABAN 20MG TAB (XARELTO) PO SCH (17:36)
[2022-12-22] MEDS: traZODone 50 MG TAB PO PRN (20:55)
[2022-12-22] MEDS: SIMVASTATIN 10 MG TAB PO SCH (20:55)
[2022-12-22] MEDS: ACETAMINOPHEN TAB 650MG DOSE (2X325MG) PO PRN (20:59)
[2022-12-23 06:38] VITALS: BP 116/59; TEMP 97.7; O2SAT 97
[2022-12-23] MEDS: ADVAIR HFA 230/21MCG INHALER INH SCH ×2 (08:15→20:56)
[2022-12-23] MEDS: MULTIVITAMINS/MINERALS THERAP 1 TAB PO SCH (08:16)
[2022-12-23] MEDS: OMEPRAZOLE 20MG CAP PO SCH ×2 (08:16→20:56)
[2022-12-23] MEDS: TIOTROPIUM INHALER/CAPSULE (SPIRIVA) INH SCH (08:17)
[2022-12-23] MEDS: DULoxetine 30MG CAPSULE (CYMBALTA) PO SCH (08:17)
[2022-12-23] MEDS: FINASTERIDE 5MG TAB PO SCH (08:19)
[2022-12-23] MEDS: LOSARTAN 25 MG TAB PO SCH (08:19)
[2022-12-23] MEDS ORDERED: ONDANSETRON 4MG TAB PO PRN ×2 (09:00→17:00)
[2022-12-23] MEDS: guaiFENesin ER TABLET 600 MG TAB PO SCH ×2 (09:36→20:56)
[2022-12-23 13:34] VITALS: BP 110/67; TEMP 97.7; O2SAT 97
[2022-12-23] MEDS ORDERED: ISOVUE-370 76% 100ML VIAL As Ordered ONE (14:00)
[2022-12-23] MEDS: FAMOTIDINE 20 MG TAB PO SCH (14:50)
[2022-12-23] MEDS: ALBUTEROL SULFATE 2.5MG/0.5ML INH NEB SOLN NEB SCH ×2 (15:12→21:40)
[2022-12-23 16:12] VITALS: BP 129/60; TEMP 98.7; O2SAT 98
[2022-12-23 16:26] LABS: CK-MB VALUE MASS 1.2 NG/ML (<3.6)
[2022-12-23 16:27] LABS: BLOOD UREA NITROGEN 18 MG/DL (9-23); CALCIUM LEVEL 9.1 MG/DL (8.3-10.6); CARBON DIOXIDE LEVEL 29 MMOL/L (20-31); CHLORIDE LEVEL 100 MMOL/L (98-107); CREATININE FOR GFR 0.68 MG/DL (0.70-1.30); GLOMERULAR FILTRATION RATE > 60.0 (>49); GLUCOSE, FASTING 90 MG/DL (74-106); MAGNESIUM LEVEL 1.9 MG/DL (1.8-2.4); POTASSIUM SERUM 4.6 MMOL/L (3.5-5.1); SODIUM LEVEL 136 MMOL/L (136-145)
[2022-12-23 16:29] LABS: MB/CK RELATIVE INDEX 1.93 (< OR =4)
[2022-12-23 16:39] LABS: BASO % 0.4 % (0.0-1.0); EOS # 0.1 10^3/uL (0.0-0.5); EOS % 1.1 % (0.0-3.0); HEMATOCRIT 34.8 % (42.0-52.0); HEMOGLOBIN 11.3 g/dl (13.5-17.5); LYMPH # 1.7 10^3/uL (1.5-5.0); LYMPH % 15.6 % (24.0-44.0); MEAN CORPUSCULAR HGB CONC 32.5 g/dl (32.0-36.5); MEAN CORPUSCULAR VOLUME 86.1 fl (80.0-96.0); MONO # 0.8 10^3/uL (0.0-0.8); NEUTROPHILS # 8.1 10^3/uL (1.5-8.5); NEUTROPHILS % 75.4 % (36.0-66.0); PLATELET COUNT, AUTOMATED 308 10^3/uL (150-450); RED BLOOD COUNT 4.04 10^6/uL (4.30-6.10); WHITE BLOOD COUNT 10.8 10^3/uL (4.0-10.0)
[2022-12-23] MEDS: RIVAROXABAN 20MG TAB (XARELTO) PO SCH (17:27)
[2022-12-23 19:16] LABS: CK-MB VALUE MASS 1.5 NG/ML (<3.6)
[2022-12-23 19:18] LABS: MB/CK RELATIVE INDEX 2.5 (< OR =4)
[2022-12-23] MEDS: SENOKOT S TAB PO SCH (20:56)
[2022-12-23] MEDS: SIMVASTATIN 10 MG TAB PO SCH (20:56)
[2022-12-23] MEDS: ALBUTEROL SULFATE 2.5MG/0.5ML INH NEB SOLN INH PRN (21:30)
[2022-12-23] MEDS: ACETAMINOPHEN TAB 650MG DOSE (2X325MG) PO PRN (21:40)
[2022-12-24 06:28] VITALS: BP 116/59; TEMP 97.5; O2SAT 99
[2022-12-24 07:41] LABS: CHOLESTEROL RISK RATIO 2.32 (<5); HDL CHOLESTEROL 65.3 MG/DL (>40); LDL CHOLESTEROL 71.1 MG/DL (<100); NON-HDL-C 86.7 MG/DL
[2022-12-24] MEDS: ADVAIR HFA 230/21MCG INHALER INH SCH ×2 (07:46→21:24)
[2022-12-24] MEDS: TIOTROPIUM INHALER/CAPSULE (SPIRIVA) INH SCH (07:46)
[2022-12-24] MEDS: DULoxetine 30MG CAPSULE (CYMBALTA) PO SCH ×2 (08:57→21:25)
[2022-12-24] MEDS: FINASTERIDE 5MG TAB PO SCH (08:57)
[2022-12-24] MEDS: SENOKOT S TAB PO SCH ×2 (08:57→21:25)
[2022-12-24] MEDS: MULTIVITAMINS/MINERALS THERAP 1 TAB PO SCH (08:58)
[2022-12-24] MEDS: LOSARTAN 25 MG TAB PO SCH (08:58)
[2022-12-24] MEDS: FAMOTIDINE 20 MG TAB PO SCH (08:59)
[2022-12-24] MEDS: OMEPRAZOLE 20MG CAP PO SCH ×2 (08:59→21:25)
[2022-12-24] MEDS: guaiFENesin ER TABLET 600 MG TAB PO SCH ×2 (08:59→21:25)
[2022-12-24] MEDS: ALBUTEROL SULFATE 2.5MG/0.5ML INH NEB SOLN NEB SCH ×3 (10:43→23:15)
[2022-12-24] MEDS ORDERED: GABAPENTIN 300 MG CAP PO SCH (12:05)
[2022-12-24] MEDS: ACETAMINOPHEN TAB 650MG DOSE (2X325MG) PO PRN (13:49)
[2022-12-24 16:21] VITALS: BP 114/61; TEMP 98.3; O2SAT 99
[2022-12-24] MEDS: RIVAROXABAN 20MG TAB (XARELTO) PO SCH (17:51)
[2022-12-24] MEDS: traZODone 25MG PER 1/2 TABLET PO PRN (21:25)
[2022-12-24] MEDS: SIMVASTATIN 10 MG TAB PO SCH (21:25)
[2022-12-25 06:09] VITALS: BP 127/61; TEMP 97.3; O2SAT 97
[2022-12-25] MEDS: ALBUTEROL SULFATE 2.5MG/0.5ML INH NEB SOLN NEB SCH ×2 (07:20→15:45)
[2022-12-25] MEDS: guaiFENesin ER TABLET 600 MG TAB PO SCH ×2 (08:15→20:18)
[2022-12-25] MEDS: ADVAIR HFA 230/21MCG INHALER INH SCH ×2 (08:15→20:21)
[2022-12-25] MEDS: TIOTROPIUM INHALER/CAPSULE (SPIRIVA) INH SCH (08:15)
[2022-12-25] MEDS: OMEPRAZOLE 20MG CAP PO SCH ×2 (08:16→20:18)
[2022-12-25] MEDS: DULoxetine 30MG CAPSULE (CYMBALTA) PO SCH ×2 (08:16→20:18)
[2022-12-25] MEDS: MULTIVITAMINS/MINERALS THERAP 1 TAB PO SCH (08:16)
[2022-12-25] MEDS: SENOKOT S TAB PO SCH ×2 (08:16→20:18)
[2022-12-25] MEDS: FINASTERIDE 5MG TAB PO SCH (08:16)
[2022-12-25] MEDS: FAMOTIDINE 20 MG TAB PO SCH (08:16)
[2022-12-25] MEDS: LOSARTAN 25 MG TAB PO SCH (08:30)
[2022-12-25] MEDS: RIVAROXABAN 20MG TAB (XARELTO) PO SCH (17:02)
[2022-12-25 18:28] VITALS: BP 112/69; TEMP 98.4
[2022-12-25] MEDS: SIMVASTATIN 10 MG TAB PO SCH (20:18)
[2022-12-25] MEDS: traZODone 25MG PER 1/2 TABLET PO PRN (20:18)
[2022-12-25] MEDS: ACETAMINOPHEN TAB 650MG DOSE (2X325MG) PO PRN (20:20)
[2022-12-26 06:07] VITALS: BP 130/58; TEMP 98.2; O2SAT 96
[2022-12-26] MEDS: ADVAIR HFA 230/21MCG INHALER INH SCH ×2 (07:37→21:15)
[2022-12-26] MEDS: TIOTROPIUM INHALER/CAPSULE (SPIRIVA) INH SCH (07:37)
[2022-12-26] MEDS: OMEPRAZOLE 20MG CAP PO SCH ×2 (07:41→21:12)
[2022-12-26] MEDS: FINASTERIDE 5MG TAB PO SCH (07:41)
[2022-12-26] MEDS: SENOKOT S TAB PO SCH ×2 (07:41→21:12)
[2022-12-26] MEDS: MULTIVITAMINS/MINERALS THERAP 1 TAB PO SCH (07:41)
[2022-12-26] MEDS: DULoxetine 30MG CAPSULE (CYMBALTA) PO SCH ×2 (07:41→21:12)
[2022-12-26] MEDS: guaiFENesin ER TABLET 600 MG TAB PO SCH ×2 (07:41→21:12)
[2022-12-26] MEDS: LOSARTAN 25 MG TAB PO SCH (07:42)
[2022-12-26] MEDS: ALBUTEROL SULFATE 2.5MG/0.5ML INH NEB SOLN NEB SCH ×4 (07:44→22:07)
[2022-12-26] MEDS: FAMOTIDINE 20 MG TAB PO SCH ×2 (07:50→21:12)
[2022-12-26 09:42] VITALS: BP 128/80; TEMP 98.2; O2SAT 96
[2022-12-26] MEDS: ACETAMINOPHEN TAB 650MG DOSE (2X325MG) PO PRN ×2 (15:40→22:07)
[2022-12-26 16:36] VITALS: BP 123/67; TEMP 98.3; O2SAT 96
[2022-12-26] MEDS: RIVAROXABAN 20MG TAB (XARELTO) PO SCH (17:31)
[2022-12-26] MEDS: traZODone 25MG PER 1/2 TABLET PO PRN (21:12)
[2022-12-26] MEDS: SIMVASTATIN 10 MG TAB PO SCH (21:12)
[2022-12-26] MEDS: ALBUTEROL SULFATE 2.5MG/0.5ML INH NEB SOLN INH PRN (21:47)
[2022-12-27 06:52] VITALS: BP 105/61; TEMP 98.7; O2SAT 100
[2022-12-27] MEDS: SENOKOT S TAB PO SCH ×2 (07:29→20:46)
[2022-12-27] MEDS: ADVAIR HFA 230/21MCG INHALER INH SCH ×2 (07:29→20:47)
[2022-12-27] MEDS: FINASTERIDE 5MG TAB PO SCH (07:29)
[2022-12-27] MEDS: TIOTROPIUM INHALER/CAPSULE (SPIRIVA) INH SCH (07:29)
[2022-12-27] MEDS: MULTIVITAMINS/MINERALS THERAP 1 TAB PO SCH (07:30)
[2022-12-27] MEDS: LOSARTAN 25 MG TAB PO SCH (07:30)
[2022-12-27] MEDS: DULoxetine 30MG CAPSULE (CYMBALTA) PO SCH ×2 (07:30→20:46)
[2022-12-27] MEDS: OMEPRAZOLE 20MG CAP PO SCH ×2 (07:31→20:46)
[2022-12-27] MEDS: guaiFENesin ER TABLET 600 MG TAB PO SCH ×2 (07:31→20:46)
[2022-12-27] MEDS: ALBUTEROL SULFATE 2.5MG/0.5ML INH NEB SOLN NEB SCH ×2 (07:35→14:56)
[2022-12-27 16:17] VITALS: BP 121/59; TEMP 97.9; O2SAT 99
[2022-12-27] MEDS: RIVAROXABAN 20MG TAB (XARELTO) PO SCH (17:38)
[2022-12-27] MEDS: FAMOTIDINE 20 MG TAB PO SCH (20:46)
[2022-12-27] MEDS: SIMVASTATIN 10 MG TAB PO SCH (20:46)
[2022-12-27] MEDS: traZODone 25MG PER 1/2 TABLET PO PRN (20:46)
[2022-12-27] MEDS: ACETAMINOPHEN TAB 650MG DOSE (2X325MG) PO PRN (20:47)
[2022-12-28 07:03] VITALS: BP 124/69; TEMP 98.7; O2SAT 99
[2022-12-28] MEDS: FINASTERIDE 5MG TAB PO SCH (07:26)
[2022-12-28] MEDS: ADVAIR HFA 230/21MCG INHALER INH SCH ×2 (07:26→21:59)
[2022-12-28] MEDS: MULTIVITAMINS/MINERALS THERAP 1 TAB PO SCH (07:26)
[2022-12-28] MEDS: DULoxetine 30MG CAPSULE (CYMBALTA) PO SCH ×2 (07:26→22:00)
[2022-12-28] MEDS: TIOTROPIUM INHALER/CAPSULE (SPIRIVA) INH SCH (07:26)
[2022-12-28] MEDS: guaiFENesin ER TABLET 600 MG TAB PO SCH ×2 (07:26→22:01)
[2022-12-28] MEDS: OMEPRAZOLE 20MG CAP PO SCH ×2 (07:26→22:00)
[2022-12-28] MEDS: SENOKOT S TAB PO SCH ×2 (07:26→22:00)
[2022-12-28] MEDS: LOSARTAN 25 MG TAB PO SCH (07:29)
[2022-12-28] MEDS: ALBUTEROL SULFATE 2.5MG/0.5ML INH NEB SOLN NEB SCH ×4 (08:00→22:34)
[2022-12-28] MEDS: ACETAMINOPHEN TAB 650MG DOSE (2X325MG) PO PRN ×2 (09:50→22:01)
[2022-12-28 11:14] VITALS: BP 124/69; TEMP 98.7; O2SAT 99
[2022-12-28 16:01] VITALS: BP 120/69; TEMP 98.7; O2SAT 97
[2022-12-28] MEDS: RIVAROXABAN 20MG TAB (XARELTO) PO SCH (17:53)
[2022-12-28] MEDS: SIMVASTATIN 10 MG TAB PO SCH (22:00)
[2022-12-28] MEDS: traZODone 25MG PER 1/2 TABLET PO PRN (22:00)
[2022-12-28] MEDS: FAMOTIDINE 20 MG TAB PO SCH (22:00)
[2022-12-29 06:33] VITALS: BP 119/56; TEMP 97.6; O2SAT 96
[2022-12-29] MEDS: ALBUTEROL SULFATE 2.5MG/0.5ML INH NEB SOLN NEB SCH ×2 (08:00→10:47)
[2022-12-29] MEDS: FINASTERIDE 5MG TAB PO SCH (08:30)
[2022-12-29] MEDS: OMEPRAZOLE 20MG CAP PO SCH (08:30)
[2022-12-29] MEDS: MULTIVITAMINS/MINERALS THERAP 1 TAB PO SCH (08:30)
[2022-12-29] MEDS: TIOTROPIUM INHALER/CAPSULE (SPIRIVA) INH SCH (08:30)
[2022-12-29] MEDS: SENOKOT S TAB PO SCH (08:30)
[2022-12-29] MEDS: DULoxetine 30MG CAPSULE (CYMBALTA) PO SCH (08:30)
[2022-12-29] MEDS: guaiFENesin ER TABLET 600 MG TAB PO SCH (08:30)
[2022-12-29 08:33] VITALS: BP 135/65
[2022-12-29] MEDS: LOSARTAN 25 MG TAB PO SCH (08:33)
[2022-12-29] MEDS: ADVAIR HFA 230/21MCG INHALER INH SCH (08:33)
[2022-12-29] MEDS ORDERED: LOSA50TA28 PO (10:04)
[2022-12-29] MEDS ORDERED: TRAZ-252 PO (10:04)
[2022-12-29] MEDS ORDERED: DULO1CAP6 PO (10:04)
[2022-12-29] MEDS ORDERED: SENN-52 PO (10:04)
[2022-12-29] MEDS ORDERED: XARE20TA PO (10:04)
== END 2022-12-29 13:22 | disposition home or self-care (01) | DRG 881 ==
LOC: M PSY 15:50
PROVIDERS: ADMIT Student in an Organized Health Care Education/Training Program; ATTEND Student in an Organized Health Care Education/Training Program
DX: F32.A Depression, unspecified (principal); E46 Unspecified protein-calorie malnutrition; R64 Cachexia; C34.31 Malignant neoplasm of lower lobe, right bronchus or lung; Z68.1 Body mass index [BMI] 19.9 or less, adult; Z59.01 Sheltered homelessness; F43.21 Adjustment disorder with depressed mood; F10.21 Alcohol dependence, in remission; Z91.51 Personal history of suicidal behavior; J44.9 Chronic obstructive pulmonary disease, unspecified; F42.9 Obsessive-compulsive disorder, unspecified; I73.1 Thromboangiitis obliterans [Buerger's disease]; I10 Essential (primary) hypertension; E78.5 Hyperlipidemia, unspecified; F41.1 Generalized anxiety disorder; F41.9 Anxiety disorder, unspecified; N40.0 Benign prostatic hyperplasia without lower urinary tract symptoms; K59.00 Constipation, unspecified; K21.9 Gastro-esophageal reflux disease without esophagitis; Z89.512 Acquired absence of left leg below knee; Z90.49 Acquired absence of other specified parts of digestive tract; Z87.891 Personal history of nicotine dependence; Z79.01 Long term (current) use of anticoagulants; Z79.899 Other long term (current) drug therapy; Z88.0 Allergy status to penicillin

== ENCOUNTER 2022-12-29 18:45 | Emergency (ER) | payer OTHER, MEDICAID ==
[~2022-12-29] VITALS: Ht 182.9 cm; Wt 49.1 kg
[~2022-12-29 18:45] MED LIST changes: +SENN-52 PO
[2022-12-30 00:27] LABS: BASO % 0.2 % (0.0-1.0); HEMATOCRIT 37.3 % (42.0-52.0); HEMOGLOBIN 12.1 g/dl (13.5-17.5); LYMPH # 0.6 10^3/uL (1.5-5.0); LYMPH % 3.6 % (24.0-44.0); MEAN CORPUSCULAR HEMOGLOBIN 27.8 pg (27.0-33.0); MEAN CORPUSCULAR HGB CONC 32.4 g/dl (32.0-36.5); MEAN CORPUSCULAR VOLUME 85.7 fl (80.0-96.0); MONO # 0.1 10^3/uL (0.0-0.8); MONO % 0.4 % (2.0-8.0); NEUTROPHILS # 14.9 10^3/uL (1.5-8.5); NEUTROPHILS % 95.2 % (36.0-66.0); PLATELET COUNT, AUTOMATED 279 10^3/uL (150-450); RED BLOOD COUNT 4.35 10^6/uL (4.30-6.10); WHITE BLOOD COUNT 15.6 10^3/uL (4.0-10.0)
[2022-12-30 00:42] LABS: ERYTHROCYTE SEDIMENTATION RATE 38 mm/hr (0-20)
[2022-12-30 01:00] LABS: BLOOD UREA NITROGEN 17 MG/DL (9-23); CALCIUM LEVEL 9.2 MG/DL (8.3-10.6); CARBON DIOXIDE LEVEL 29 MMOL/L (20-31); CHLORIDE LEVEL 99 MMOL/L (98-107); CREATININE FOR GFR 0.68 MG/DL (0.70-1.30); GLOMERULAR FILTRATION RATE > 60.0 (>49); GLUCOSE, FASTING 143 MG/DL (74-106); POTASSIUM SERUM 4.7 MMOL/L (3.5-5.1); SODIUM LEVEL 136 MMOL/L (136-145)
[2022-12-30 02:56] VITALS: BP 132/64; TEMP 96.9; O2SAT 97
== END 2022-12-30 02:59 | disposition home or self-care (01) ==
LOC: M ED 18:45
DX: M25.551 Pain in right hip (principal); M79.661 Pain in right lower leg; R26.2 Difficulty in walking, not elsewhere classified; I73.1 Thromboangiitis obliterans [Buerger's disease]; I10 Essential (primary) hypertension; F41.9 Anxiety disorder, unspecified; F32.A Depression, unspecified; J44.9 Chronic obstructive pulmonary disease, unspecified; K21.9 Gastro-esophageal reflux disease without esophagitis; K22.70 Barrett's esophagus without dysplasia; Z87.891 Personal history of nicotine dependence; Z88.0 Allergy status to penicillin; Z79.899 Other long term (current) drug therapy; Z79.01 Long term (current) use of anticoagulants; Z85.118 Personal history of other malignant neoplasm of bronchus and lung

== ENCOUNTER 2023-01-26 10:51 | Outpatient (RCR) | payer OTHER, MEDICAID ==
[~2023-01-26 10:51] MED LIST changes: +AZIT-12 PO; +PRED50TA PO
== END 2023-01-29 ==
LOC: M ONCR 10:51
PROVIDERS: ATTEND General Practice
DX: Z51.0 Encounter for antineoplastic radiation therapy (principal); C34.31 Malignant neoplasm of lower lobe, right bronchus or lung

== ENCOUNTER 2023-02-03 11:02 | Outpatient (RCR) | payer OTHER, MEDICAID | END 2023-03-01 | LOC: M ONCR 11:02 | PROVIDERS: ATTEND General Practice | DX: Z51.0 Encounter for antineoplastic radiation therapy (principal); C34.31 Malignant neoplasm of lower lobe, right bronchus or lung ==

== ENCOUNTER 2023-04-06 23:32 | Emergency (ER) | payer OTHER, MEDICAID ==
[~2023-04-06] VITALS: Ht 182.9 cm; Wt 54.5 kg
[2023-04-07 00:52] LABS: RSV AMPLIFICATION NEGATIVE (NEGATIVE)
[2023-04-07 04:42] LABS: BASO % 0.3 % (0.0-1.0); EOS # 0.1 10^3/uL (0.0-0.5); EOS % 1.4 % (0.0-3.0); HEMATOCRIT 33.1 % (42.0-52.0); HEMOGLOBIN 10.5 g/dl (13.5-17.5); LYMPH # 1.7 10^3/uL (1.5-5.0); LYMPH % 17.3 % (24.0-44.0); MEAN CORPUSCULAR HEMOGLOBIN 25.6 pg (27.0-33.0); MEAN CORPUSCULAR HGB CONC 31.7 g/dl (32.0-36.5); MEAN CORPUSCULAR VOLUME 80.7 fl (80.0-96.0); MONO # 0.8 10^3/uL (0.0-0.8); NEUTROPHILS # 7.3 10^3/uL (1.5-8.5); NEUTROPHILS % 72.6 % (36.0-66.0); PLATELET COUNT, AUTOMATED 300 10^3/uL (150-450)
[2023-04-07 05:40] LABS: BLOOD UREA NITROGEN 10 MG/DL (9-23); CALCIUM LEVEL 8.8 MG/DL (8.3-10.6); CARBON DIOXIDE LEVEL 30 MMOL/L (20-31); CHLORIDE LEVEL 105 MMOL/L (98-107); CREATININE FOR GFR 0.81 MG/DL (0.70-1.30); GLOMERULAR FILTRATION RATE > 60.0 (>49); GLUCOSE, FASTING 88 MG/DL (74-106); POTASSIUM SERUM 4.1 MMOL/L (3.5-5.1); SODIUM LEVEL 136 MMOL/L (136-145)
[2023-04-07] MEDS: methylPREDNISolone 125MG 2ML VIAL IV ONE (07:15)
[2023-04-07] MEDS: IPRATROPIUM 0.5MG/ALBUTEROL 2.5MG INH SOL UD 3ML (DUONEB) NEB SCH (07:55)
[2023-04-07] MEDS ORDERED: GUAI600T54 PO (08:16)
[2023-04-07] MEDS ORDERED: DULO60CA35 PO (08:16)
[2023-04-07] MEDS ORDERED: FAMO1TAB11 PO (08:16)
[2023-04-07] MEDS ORDERED: XARE20TA PO (08:16)
[2023-04-07] MEDS ORDERED: SENN-186 PO (08:16)
[2023-04-07] MEDS ORDERED: HOME MED LIST COMPLETE! XX SCH (08:20)
[2023-04-07 08:34] LABS: VENOUS BASE EXCESS 2.8 (-2.0-2.0); VENOUS HCO3 28.5 MMOL/L (23.0-27.0); VENOUS O2 SATURATION 70.9 % (60.0-80.0); VENOUS PARTIAL PRESSURE CO2 48.1 mmHg (38.0-50.0); VENOUS PARTIAL PRESSURE O2 35.9 mmHg (30.0-50.0); VENOUS STANDARD HCO3 26.4 MMOL/L; VENOUS TOTAL CO2 29.9 MMOL/L (24.0-28.0)
[2023-04-07 10:12] VITALS: O2SAT 93
[2023-04-07] MEDS ORDERED: PRED20TA PO (11:17)
[2023-04-07] MEDS ORDERED: DOXY100C82 PO (11:17)
[2023-04-07 11:45] VITALS: BP 135/63; TEMP 97.6; O2SAT 97
== END 2023-04-07 11:48 | disposition home or self-care (01) ==
LOC: M ED 23:32 → EDBD 23:32 → M ED 04-07 11:48
DX: J44.1 Chronic obstructive pulmonary disease with (acute) exacerbation (principal); I10 Essential (primary) hypertension; E78.5 Hyperlipidemia, unspecified; I73.1 Thromboangiitis obliterans [Buerger's disease]; Z87.891 Personal history of nicotine dependence; Z90.49 Acquired absence of other specified parts of digestive tract; Z79.899 Other long term (current) drug therapy; Z79.01 Long term (current) use of anticoagulants
CPT/HCPCS: 71045; 80048; 82803; 83605; 85025; 87040; 87486; 87581; 87631; 87633; 87798; 93005; 94640; 96374; 99285; J2930

== ENCOUNTER 2023-04-27 06:27 | Inpatient (IN) | payer OTHER, MEDICAID ==
[~2023-04-27] VITALS: Ht 182.9 cm; Wt 50.1 kg
[~2023-04-27 06:27] MED LIST changes: +DOXY100C82 PO; +DULO60CA35 PO; +FAMO1TAB11 PO; +GUAI600T54 PO; +PRED20TA PO; +SENN-186 PO
[2023-04-27 07:11] LABS: BASO % 0.1 % (0.0-1.0); EOS % 0.2 % (0.0-3.0); HEMATOCRIT 38.3 % (42.0-52.0); HEMOGLOBIN 11.8 g/dl (13.5-17.5); LYMPH # 1.1 10^3/uL (1.5-5.0); MEAN CORPUSCULAR HEMOGLOBIN 25.2 pg (27.0-33.0); MEAN CORPUSCULAR HGB CONC 30.8 g/dl (32.0-36.5); MEAN CORPUSCULAR VOLUME 81.8 fl (80.0-96.0); MONO # 0.9 10^3/uL (0.0-0.8); MONO % 9.2 % (2.0-8.0); NEUTROPHILS # 7.4 10^3/uL (1.5-8.5); PLATELET COUNT, AUTOMATED 288 10^3/uL (150-450); RED BLOOD COUNT 4.68 10^6/uL (4.30-6.10); VENOUS BASE EXCESS 2.4 (-2.0-2.0); VENOUS HCO3 30.4 MMOL/L (23.0-27.0); VENOUS O2 SATURATION 54.6 % (60.0-80.0); VENOUS PARTIAL PRESSURE CO2 63.4 mmHg (38.0-50.0); VENOUS PARTIAL PRESSURE O2 31.8 mmHg (30.0-50.0); VENOUS PH 7.298 UNITS (7.330-7.430); VENOUS STANDARD HCO3 25.6 MMOL/L; VENOUS TOTAL CO2 32.3 MMOL/L (24.0-28.0); WHITE BLOOD COUNT 9.4 10^3/uL (4.0-10.0)
[2023-04-27] MEDS: IPRATROPIUM 0.5MG/ALBUTEROL 2.5MG INH SOL UD 3ML (DUONEB) NEB ONE (07:21)
[2023-04-27] MEDS: ALBUTEROL SULFATE 2.5MG/0.5ML INH NEB SOLN INH ONE (07:21)
[2023-04-27 07:33] LABS: CK-MB VALUE MASS 2.6 NG/ML (<3.6)
[2023-04-27 07:34] LABS: LIPASE 22 U/L (12-53)
[2023-04-27 07:35] LABS: CPK CREATINE PHOSPHOKINASE 56 U/L (46-171); MB/CK RELATIVE INDEX 4.64 (< OR =4)
[2023-04-27 07:36] LABS: ALBUMIN 3.5 G/DL (3.2-5.2); ALKALINE PHOSPHATASE 59 U/L (46-116); ALT/SGPT 11 U/L (7.0-40); AST/SGOT 16 U/L (<34); BILIRUBIN,DIRECT 0.1 MG/DL (<0.4); BILIRUBIN,TOTAL 0.4 MG/DL (0.3-1.2); BLOOD UREA NITROGEN 14 MG/DL (9-23); CALCIUM LEVEL 8.8 MG/DL (8.3-10.6); CARBON DIOXIDE LEVEL 32 MMOL/L (20-31); CHLORIDE LEVEL 107 MMOL/L (98-107); CREATININE FOR GFR 0.73 MG/DL (0.70-1.30); GLOMERULAR FILTRATION RATE > 60.0 (>49); GLUCOSE, FASTING 100 MG/DL (74-106); POTASSIUM SERUM 3.6 MMOL/L (3.5-5.1); SODIUM LEVEL 139 MMOL/L (136-145); TOTAL PROTEIN 6.8 G/DL (5.7-8.2)
[2023-04-27 07:38] LABS: THYROID STIMULATING HORMONE 0.735 uIU/ML (0.55-4.78)
[2023-04-27 07:39] LABS: INR 1.06; PARTIAL THROMBOPLASTIN TIME 28.4 SECONDS (24.8-34.2); PROTHROMBIN TIME 13.5 SECONDS (12.5-14.5)
[2023-04-27 07:40] VITALS: O2SAT 96
[2023-04-27 07:43] LABS: ABG BASE EXCESS 3.9 (-2.0-2.0); ABG HCO3 28.9 MMOL/L (22.0-26.0); ABG O2 SATURATION 97.7 % (95.0-99.0); ABG PARTIAL PRESSURE O2 101.8 mmHg (75.0-100.0); ABG TOTAL CO2 30.2 MMOL/L (23.0-31.0); ABG pH (ARTERIAL) 7.425 UNITS (7.350-7.450)
[2023-04-27] MEDS ORDERED: ISOVUE-370 76% 100ML VIAL As Ordered ONE (08:25)
[2023-04-27 09:10] LABS: CK-MB VALUE MASS 2.8 NG/ML (<3.6)
[2023-04-27 09:12] LABS: MB/CK RELATIVE INDEX 4.24 (< OR =4)
[2023-04-27] MEDS ORDERED: LOSA100T46 PO (10:02)
[2023-04-27] MEDS ORDERED: PRED20TA PO (10:02)
[2023-04-27] MEDS ORDERED: BREO1INH3 INH (10:02)
[2023-04-27] MEDS ORDERED: HOME MED LIST COMPLETE! XX SCH (10:10)
[2023-04-27] MEDS ORDERED: MOM 30ML SUSPENSION UDC PO PRN (10:30)
[2023-04-27] MEDS: DOCUSATE SODIUM 100MG CAPSULE PO SCH (10:50)
[2023-04-27] MEDS: IPRATROPIUM 0.5MG/ALBUTEROL 2.5MG INH SOL UD 3ML (DUONEB) NEB SCH (12:31)
[2023-04-27] MEDS: SYMBICORT 160/4.5MCG INHALER 6GM INH SCH (12:31)
[2023-04-27] MEDS: ALPRAZolam 0.5 MG TAB PO ONE (12:45)
[2023-04-27] MEDS: methylPREDNISolone 40MG 1ML VIAL IV SCH (13:23)
[2023-04-27] MEDS: FINASTERIDE 5MG TAB PO SCH (13:23)
[2023-04-27] MEDS: ALPRAZolam 0.25 MG TAB PO PRN (13:24)
[2023-04-27] MEDS: OMEPRAZOLE 20MG CAP PO SCH (13:24)
[2023-04-27] MEDS: DOXYCYCLINE HYCLATE 100MG TABLET PO SCH (13:24)
[2023-04-27] MEDS: DULoxetine 30MG CAPSULE (CYMBALTA) PO SCH (13:24)
[2023-04-27 13:45] VITALS: BP 154/97; TEMP 97.5; O2SAT 95
[2023-04-27] MEDS: guaiFENesin DM LIQ 10ML UD PO PRN (14:47)
[2023-04-27] MEDS: traZODone 50 MG TAB PO SCH (20:04)
[2023-04-27] MEDS: FAMOTIDINE 20 MG TAB PO SCH (20:04)
[2023-04-27] MEDS: SIMVASTATIN 10 MG TAB PO SCH (20:04)
[2023-04-27] MEDS: RIVAROXABAN 20MG TAB (XARELTO) PO SCH (20:04)
[2023-04-27 22:16] VITALS: BP 123/69; TEMP 98.1; O2SAT 91
[2023-04-28 05:36] VITALS: BP 130/74; TEMP 97.4; O2SAT 98
[2023-04-28 06:08] LABS: EOS % 0.2 % (0.0-3.0); HEMOGLOBIN 11.3 g/dl (13.5-17.5); LYMPH # 0.5 10^3/uL (1.5-5.0); LYMPH % 9.2 % (24.0-44.0); MEAN CORPUSCULAR HEMOGLOBIN 25.2 pg (27.0-33.0); MEAN CORPUSCULAR HGB CONC 31.4 g/dl (32.0-36.5); MEAN CORPUSCULAR VOLUME 80.4 fl (80.0-96.0); MONO # 0.2 10^3/uL (0.0-0.8); MONO % 4.2 % (2.0-8.0); NEUTROPHILS % 85.9 % (36.0-66.0); PLATELET COUNT, AUTOMATED 284 10^3/uL (150-450); RED BLOOD COUNT 4.48 10^6/uL (4.30-6.10); WHITE BLOOD COUNT 5.8 10^3/uL (4.0-10.0)
[2023-04-28 06:51] LABS: BLOOD UREA NITROGEN 14 MG/DL (9-23); CARBON DIOXIDE LEVEL 32 MMOL/L (20-31); CHLORIDE LEVEL 104 MMOL/L (98-107); CREATININE FOR GFR 0.68 MG/DL (0.70-1.30); GLOMERULAR FILTRATION RATE > 60.0 (>49); GLUCOSE, FASTING 136 MG/DL (74-106); POTASSIUM SERUM 4.5 MMOL/L (3.5-5.1); SODIUM LEVEL 138 MMOL/L (136-145)
[2023-04-28 14:00] VITALS: BP 142/70; TEMP 97.6; O2SAT 95
[2023-04-28 20:40] VITALS: BP 131/82; TEMP 97.7; O2SAT 95
[2023-04-29 04:55] VITALS: BP 127/60; TEMP 97.9; O2SAT 93
[2023-04-29 05:53] LABS: BASO % 0.1 % (0.0-1.0); HEMATOCRIT 37.3 % (42.0-52.0); HEMOGLOBIN 11.7 g/dl (13.5-17.5); LYMPH # 0.5 10^3/uL (1.5-5.0); LYMPH % 6.6 % (24.0-44.0); MEAN CORPUSCULAR HGB CONC 31.4 g/dl (32.0-36.5); MEAN CORPUSCULAR VOLUME 79.7 fl (80.0-96.0); MONO # 0.3 10^3/uL (0.0-0.8); MONO % 4.1 % (2.0-8.0); NEUTROPHILS # 7.2 10^3/uL (1.5-8.5); NEUTROPHILS % 88.7 % (36.0-66.0); PLATELET COUNT, AUTOMATED 328 10^3/uL (150-450); RED BLOOD COUNT 4.68 10^6/uL (4.30-6.10); WHITE BLOOD COUNT 8.1 10^3/uL (4.0-10.0)
[2023-04-29 06:23] LABS: BLOOD UREA NITROGEN 16 MG/DL (9-23); CARBON DIOXIDE LEVEL 32 MMOL/L (20-31); CHLORIDE LEVEL 104 MMOL/L (98-107); CREATININE FOR GFR 0.73 MG/DL (0.70-1.30); GLOMERULAR FILTRATION RATE > 60.0 (>49); GLUCOSE, FASTING 162 MG/DL (74-106); POTASSIUM SERUM 5.3 MMOL/L (3.5-5.1); SODIUM LEVEL 138 MMOL/L (136-145)
[2023-04-29] MEDS ORDERED: SPIR1CAP INH (10:16)
[2023-04-29] MEDS ORDERED: ALPR0.25 PO (10:16)
[2023-04-29] MEDS ORDERED: GUAI10LI PO (10:16)
[2023-04-29] MEDS ORDERED: PRED10TA2 PO (10:16)
[2023-04-29] MEDS ORDERED: DOXY100T PO (10:16)
[2023-04-29] MEDS ORDERED: methylPREDNISolone 40MG 1ML VIAL IV SCH (18:00)
== END 2023-04-29 16:12 | disposition home or self-care (01) | DRG 190 ==
LOC: M ED 06:27 → M ED INP 10:28 → ENRESERV 12:50 → M MSPAV 13:48
PROVIDERS: ADMIT Internal Medicine Nephrology; ATTEND Internal Medicine Nephrology
DX: J44.1 Chronic obstructive pulmonary disease with (acute) exacerbation (principal); E43 Unspecified severe protein-calorie malnutrition; C34.31 Malignant neoplasm of lower lobe, right bronchus or lung; I10 Essential (primary) hypertension; E78.5 Hyperlipidemia, unspecified; F41.1 Generalized anxiety disorder; F32.A Depression, unspecified; F42.9 Obsessive-compulsive disorder, unspecified; N40.0 Benign prostatic hyperplasia without lower urinary tract symptoms; K59.00 Constipation, unspecified; K21.9 Gastro-esophageal reflux disease without esophagitis; K22.70 Barrett's esophagus without dysplasia; Z88.0 Allergy status to penicillin; Z79.899 Other long term (current) drug therapy; Z87.891 Personal history of nicotine dependence; I73.1 Thromboangiitis obliterans [Buerger's disease]; Z89.512 Acquired absence of left leg below knee; Z92.3 Personal history of irradiation; J06.9 Acute upper respiratory infection, unspecified; B97.29 Other coronavirus as the cause of diseases classified elsewhere

== ENCOUNTER 2023-05-13 15:32 | Emergency (ER) | payer OTHER, MEDICAID ==
[~2023-05-13] VITALS: Ht 182.9 cm; Wt 50.5 kg
[~2023-05-13 15:32] MED LIST changes: +ALPR0.25 PO; +DOXY100T PO; +GUAI10LI PO; +LOSA100T46 PO
[2023-05-13 17:03] LABS: VENOUS BASE EXCESS 3.8 (-2.0-2.0); VENOUS HCO3 27.9 MMOL/L (23.0-27.0); VENOUS O2 SATURATION 97.8 % (60.0-80.0); VENOUS PARTIAL PRESSURE CO2 40.4 mmHg (38.0-50.0); VENOUS PARTIAL PRESSURE O2 99.4 mmHg (30.0-50.0); VENOUS PH 7.457 UNITS (7.330-7.430); VENOUS STANDARD HCO3 27.8 MMOL/L; VENOUS TOTAL CO2 29.1 MMOL/L (24.0-28.0)
[2023-05-13 17:20] LABS: BASO % 0.1 % (0.0-1.0); EOS % 0.1 % (0.0-3.0); HEMATOCRIT 34.8 % (42.0-52.0); HEMOGLOBIN 11.1 g/dl (13.5-17.5); LYMPH # 1.1 10^3/uL (1.5-5.0); LYMPH % 7.2 % (24.0-44.0); MEAN CORPUSCULAR HEMOGLOBIN 24.9 pg (27.0-33.0); MEAN CORPUSCULAR HGB CONC 31.9 g/dl (32.0-36.5); MONO % 6.4 % (2.0-8.0); NEUTROPHILS # 13.2 10^3/uL (1.5-8.5); NEUTROPHILS % 85.1 % (36.0-66.0); PLATELET COUNT, AUTOMATED 414 10^3/uL (150-450); RED BLOOD COUNT 4.46 10^6/uL (4.30-6.10); WHITE BLOOD COUNT 15.6 10^3/uL (4.0-10.0)
[2023-05-13 17:35] LABS: D-DIMER QUANT < 0.27 ug/mL (<0.5); PROTHROMBIN TIME 13.9 SECONDS (12.5-14.5)
[2023-05-13 17:38] LABS: ALBUMIN 3.1 G/DL (3.2-5.2); ALKALINE PHOSPHATASE 49 U/L (46-116); ALT/SGPT 16 U/L (7.0-40); AST/SGOT 18 U/L (<34); BILIRUBIN,DIRECT 0.2 MG/DL (<0.4); BILIRUBIN,TOTAL 0.5 MG/DL (0.3-1.2); BLOOD UREA NITROGEN 13 MG/DL (9-23); CALCIUM LEVEL 7.4 MG/DL (8.3-10.6); CARBON DIOXIDE LEVEL 28 MMOL/L (20-31); CHLORIDE LEVEL 98 MMOL/L (98-107); CK-MB VALUE MASS 4.5 NG/ML (<3.6); CREATININE FOR GFR 0.68 MG/DL (0.70-1.30); GLOMERULAR FILTRATION RATE > 60.0 (>49); GLUCOSE, FASTING 117 MG/DL (74-106); POTASSIUM SERUM 4.4 MMOL/L (3.5-5.1); SODIUM LEVEL 129 MMOL/L (136-145); TOTAL PROTEIN 5.8 G/DL (5.7-8.2)
[2023-05-13 17:40] LABS: CPK CREATINE PHOSPHOKINASE 77 U/L (46-171); MB/CK RELATIVE INDEX 5.84 (< OR =4)
[2023-05-13 18:44] LABS: CK-MB VALUE MASS 4.3 NG/ML (<3.6)
[2023-05-13 18:46] VITALS: TEMP 98.5
[2023-05-13 18:46] LABS: MB/CK RELATIVE INDEX 7.04 (< OR =4)
[2023-05-13] MEDS: predniSONE 20 MG TAB PO ONE (19:09)
[2023-05-13 19:19] VITALS: BP 145/77; O2SAT 95
== END 2023-05-13 20:15 | disposition home or self-care (01) ==
LOC: EDBD 15:32 → M ED 15:32
DX: J44.1 Chronic obstructive pulmonary disease with (acute) exacerbation (principal); I10 Essential (primary) hypertension; E78.5 Hyperlipidemia, unspecified; K21.9 Gastro-esophageal reflux disease without esophagitis; C34.90 Malignant neoplasm of unspecified part of unspecified bronchus or lung; Z88.0 Allergy status to penicillin; Z79.51 Long term (current) use of inhaled steroids; Z79.810 Long term (current) use of selective estrogen receptor modulators (SERMs); Z79.899 Other long term (current) drug therapy; Z79.52 Long term (current) use of systemic steroids
CPT/HCPCS: 36415; 71045; 80048; 80076; 82550; 82553; 82803; 83605; 83880; 84484; 85025; 85379; 85610; 87040; 87486; 87581; 87633; 87798; 93005; 93041; 94760; 99285; J7512

== ENCOUNTER 2023-05-22 19:15 | Emergency (ER) | payer OTHER, MEDICAID ==
[~2023-05-22] VITALS: Ht 185.4 cm; Wt 54.2 kg
[2023-05-22 19:27] VITALS: TEMP 98.9
[2023-05-22 19:55] LABS: VENOUS HCO3 27.6 MMOL/L (23.0-27.0); VENOUS O2 SATURATION 71.5 % (60.0-80.0); VENOUS PARTIAL PRESSURE O2 34.6 mmHg (30.0-50.0); VENOUS PH 7.386 UNITS (7.330-7.430); VENOUS STANDARD HCO3 25.7 MMOL/L
[2023-05-22 20:01] LABS: BASO % 0.1 % (0.0-1.0); HEMATOCRIT 34.5 % (42.0-52.0); LYMPH # 0.6 10^3/uL (1.5-5.0); LYMPH % 3.8 % (24.0-44.0); MEAN CORPUSCULAR HEMOGLOBIN 25.2 pg (27.0-33.0); MEAN CORPUSCULAR HGB CONC 31.9 g/dl (32.0-36.5); MEAN CORPUSCULAR VOLUME 79.1 fl (80.0-96.0); MONO # 0.4 10^3/uL (0.0-0.8); MONO % 2.7 % (2.0-8.0); NEUTROPHILS # 14.5 10^3/uL (1.5-8.5); NEUTROPHILS % 92.4 % (36.0-66.0); PLATELET COUNT, AUTOMATED 284 10^3/uL (150-450); RED BLOOD COUNT 4.36 10^6/uL (4.30-6.10); WHITE BLOOD COUNT 15.7 10^3/uL (4.0-10.0)
[2023-05-22 20:21] LABS: INR 2.49; PARTIAL THROMBOPLASTIN TIME 41.4 SECONDS (24.8-34.2)
[2023-05-22 20:32] LABS: ALBUMIN 3.4 G/DL (3.2-5.2); ALKALINE PHOSPHATASE 62 U/L (46-116); ALT/SGPT 15 U/L (7.0-40); AST/SGOT 36 U/L (<34); BILIRUBIN,DIRECT < 0.1 MG/DL (<0.4); BILIRUBIN,TOTAL 0.3 MG/DL (0.3-1.2); BLOOD UREA NITROGEN 10 MG/DL (9-23); CALCIUM LEVEL 8.7 MG/DL (8.3-10.6); CARBON DIOXIDE LEVEL 30 MMOL/L (20-31); CHLORIDE LEVEL 98 MMOL/L (98-107); CK-MB VALUE MASS 5.6 NG/ML (<3.6); CREATININE FOR GFR 0.62 MG/DL (0.70-1.30); GLOMERULAR FILTRATION RATE > 60.0 (>49); GLUCOSE, FASTING 126 MG/DL (74-106); POTASSIUM SERUM 4.6 MMOL/L (3.5-5.1); SODIUM LEVEL 132 MMOL/L (136-145); TOTAL PROTEIN 6.5 G/DL (5.7-8.2)
[2023-05-22 20:34] LABS: CPK CREATINE PHOSPHOKINASE 152 U/L (46-171); MB/CK RELATIVE INDEX 3.68 (< OR =4)
[2023-05-22 21:31] LABS: CK-MB VALUE MASS 2.2 NG/ML (<3.6)
[2023-05-22 21:33] LABS: MB/CK RELATIVE INDEX 2.68 (< OR =4)
[2023-05-22 22:00] VITALS: BP 136/89; O2SAT 98
== END 2023-05-22 22:59 | disposition home or self-care (01) ==
LOC: M ED 19:15
DX: R07.9 Chest pain, unspecified (principal); J44.9 Chronic obstructive pulmonary disease, unspecified; K21.9 Gastro-esophageal reflux disease without esophagitis; N40.0 Benign prostatic hyperplasia without lower urinary tract symptoms; Z85.118 Personal history of other malignant neoplasm of bronchus and lung; F17.200 Nicotine dependence, unspecified, uncomplicated

== ENCOUNTER 2023-06-24 15:49 | Emergency (ER) | payer OTHER, MEDICAID ==
[~2023-06-24] VITALS: Ht 182.9 cm; Wt 52.0 kg
[2023-06-24 16:48] LABS: BASO # 0.1 10^3/uL (0.0-0.2); BASO % 0.4 % (0.0-1.0); EOS # 0.1 10^3/uL (0.0-0.5); EOS % 0.6 % (0.0-3.0); HEMATOCRIT 34.5 % (42.0-52.0); HEMOGLOBIN 10.7 g/dl (13.5-17.5); LYMPH % 14.8 % (24.0-44.0); MEAN CORPUSCULAR HEMOGLOBIN 24.3 pg (27.0-33.0); MEAN CORPUSCULAR VOLUME 78.4 fl (80.0-96.0); MONO # 0.9 10^3/uL (0.0-0.8); MONO % 6.4 % (2.0-8.0); NEUTROPHILS # 10.3 10^3/uL (1.5-8.5); NEUTROPHILS % 76.6 % (36.0-66.0); PLATELET COUNT, AUTOMATED 366 10^3/uL (150-450); WHITE BLOOD COUNT 13.5 10^3/uL (4.0-10.0)
[2023-06-24 17:04] LABS: BLOOD UREA NITROGEN 9 MG/DL (9-23); CARBON DIOXIDE LEVEL 28 MMOL/L (20-31); CHLORIDE LEVEL 98 MMOL/L (98-107); GLOMERULAR FILTRATION RATE > 60.0 (>49); GLUCOSE, FASTING 93 MG/DL (74-106); MAGNESIUM LEVEL 1.8 MG/DL (1.8-2.4); POTASSIUM SERUM 4.3 MMOL/L (3.5-5.1); SODIUM LEVEL 135 MMOL/L (136-145)
[2023-06-24 17:06] LABS: FREE T4 1.23 NG/DL (0.89-1.76)
[2023-06-24] MEDS: NS 1,000 ML IV ONE ×2 (17:15→17:47)
[2023-06-24 21:37] VITALS: BP 148/69; TEMP 98.9; O2SAT 97
== END 2023-06-24 21:40 | disposition home or self-care (01) ==
LOC: EDBD 15:49 → M ED 15:49
DX: I95.1 Orthostatic hypotension (principal); I10 Essential (primary) hypertension; R00.0 Tachycardia, unspecified; E78.5 Hyperlipidemia, unspecified; J44.9 Chronic obstructive pulmonary disease, unspecified; F41.9 Anxiety disorder, unspecified; F32.A Depression, unspecified; Z87.891 Personal history of nicotine dependence; Z88.0 Allergy status to penicillin; Z79.51 Long term (current) use of inhaled steroids; Z79.810 Long term (current) use of selective estrogen receptor modulators (SERMs); Z79.52 Long term (current) use of systemic steroids; Z79.899 Other long term (current) drug therapy

== ENCOUNTER 2023-09-15 21:02 | Inpatient (IN) | payer MEDICARE, MEDICAID ==
[~2023-09-15] VITALS: Ht 182.9 cm; Wt 53.0 kg
[~2023-09-15 21:02] MED LIST changes: +ONDA-284 PO; -ONDA8TAB8 PO
[2023-09-15 21:41] LABS: BASO % 0.2 % (0.0-1.0); EOS # 0.1 10^3/uL (0.0-0.5); EOS % 0.4 % (0.0-3.0); HEMATOCRIT 33.6 % (42.0-52.0); HEMOGLOBIN 10.5 g/dl (13.5-17.5); LYMPH # 1.7 10^3/uL (1.5-5.0); LYMPH % 10.1 % (24.0-44.0); MEAN CORPUSCULAR HEMOGLOBIN 23.8 pg (27.0-33.0); MEAN CORPUSCULAR HGB CONC 31.3 g/dl (32.0-36.5); MONO # 1.4 10^3/uL (0.0-0.8); MONO % 8.1 % (2.0-8.0); NEUTROPHILS # 13.5 10^3/uL (1.5-8.5); NEUTROPHILS % 80.1 % (36.0-66.0); PLATELET COUNT, AUTOMATED 691 10^3/uL (150-450); RED BLOOD COUNT 4.42 10^6/uL (4.30-6.10); WHITE BLOOD COUNT 16.9 10^3/uL (4.0-10.0)
[2023-09-15] MEDS: KETOROLAC 30 MG/ML 1ML VIAL IV ONE (21:50)
[2023-09-15] MEDS: MORPHINE 10 MG/ML 1ML VIAL IV ONE (21:50)
[2023-09-15 22:09] LABS: ETHYL ALCOHOL (ETHANOL) < 0.003 % (0.000-0.010)
[2023-09-15 22:10] LABS: SALICYLATE LEVEL < 3.0 MG/DL (<30)
[2023-09-15 22:11] LABS: ALBUMIN 2.7 G/DL (3.2-5.2); ALKALINE PHOSPHATASE 72 U/L (46-116); ALT/SGPT 17 U/L (7.0-40); AST/SGOT 24 U/L (<34); BILIRUBIN,DIRECT 0.2 MG/DL (<0.4); BILIRUBIN,TOTAL 0.4 MG/DL (0.3-1.2); BLOOD UREA NITROGEN 20 MG/DL (9-23); CALCIUM LEVEL 9.1 MG/DL (8.3-10.6); CARBON DIOXIDE LEVEL 27 MMOL/L (20-31); CHLORIDE LEVEL 98 MMOL/L (98-107); GLOMERULAR FILTRATION RATE > 60.0 (>49); GLUCOSE, FASTING 88 MG/DL (74-106); POTASSIUM SERUM 4.5 MMOL/L (3.5-5.1); SODIUM LEVEL 133 MMOL/L (136-145)
[2023-09-15 22:13] LABS: THYROID STIMULATING HORMONE 0.873 uIU/ML (0.55-4.78)
[2023-09-15 22:14] LABS: CPK CREATINE PHOSPHOKINASE 84 U/L (46-171)
[2023-09-16 07:25] LABS: AMPHETAMINES LEVEL URINE NEGATIVE (NEGATIVE); BARBITURATES URINE NEGATIVE (NEGATIVE); BENZODIAZEPINES URINE NEGATIVE (NEGATIVE); COCAINE METABOLITE URINE NEGATIVE (NEGATIVE); METHADONE URINE NEGATIVE (NEGATIVE)
[2023-09-16 07:26] LABS: CANNABINOIDS URINE POSITIVE (NEGATIVE); OPIATES URINE POSITIVE (NEGATIVE); PHENCYCLIDINE URINE NEGATIVE (NEGATIVE)
[2023-09-16] MEDS ORDERED: HOME MED LIST COMPLETE! XX SCH (11:55)
[2023-09-16] MEDS ORDERED: SENNA 8.6 MG TAB (SENOKOT) PO PRN (14:35)
[2023-09-16] MEDS ORDERED: IBUPROFEN 400MG TAB PO PRN (14:35)
[2023-09-16] MEDS ORDERED: MAALOX 30 ML SUSP *UDC PO PRN (14:35)
[2023-09-16] MEDS ORDERED: MOM 30ML SUSPENSION UDC PO PRN (14:35)
[2023-09-16] MEDS ORDERED: diphenhydrAMINE 25MG CAP PO PRN (14:35)
[2023-09-16] MEDS ORDERED: PILL CUTTER 1 EACH XX PRN (15:00)
[2023-09-16 16:18] VITALS: BP 112/59; TEMP 97.4; O2SAT 100
[2023-09-16] MEDS: RIVAROXABAN 20MG TAB (XARELTO) PO SCH (18:46)
[2023-09-16] MEDS ORDERED: IBUPROFEN 800 MG TAB PO SCH (21:30)
[2023-09-16] MEDS: traZODone 50 MG TAB PO SCH (22:06)
[2023-09-16] MEDS: FAMOTIDINE 20 MG TAB PO SCH (22:06)
[2023-09-16] MEDS: SIMVASTATIN 10 MG TAB PO SCH (22:06)
[2023-09-16] MEDS: OMEPRAZOLE 20MG CAP PO SCH (22:06)
[2023-09-17] MEDS ORDERED: KETOROLAC 30 MG/ML 1ML VIAL IV PRN (00:05)
[2023-09-17] MEDS ORDERED: KETOROLAC 30 MG/ML 1ML VIAL IM PRN (00:20)
[2023-09-17 06:37] VITALS: BP 133/55; TEMP 97.8; O2SAT 96
[2023-09-17] MEDS: NICOTINE 14 MG/24 HR TRANSDERMAL TD SCH (09:00)
[2023-09-17] MEDS: FINASTERIDE 5MG TAB PO SCH (09:10)
[2023-09-17] MEDS: MULTIVITAMINS/MINERALS THERAP 1 TAB PO SCH (09:10)
[2023-09-17] MEDS: SERTRALINE HCL 50 MG TAB PO SCH (09:10)
[2023-09-17] MEDS: LOSARTAN 50MG TABLET PO SCH (09:12)
[2023-09-17] MEDS: TIOTROPIUM INHALER/CAPSULE (SPIRIVA) INH SCH (10:03)
[2023-09-17] MEDS: ACETAMINOPHEN TAB 650MG DOSE (2X325MG) PO PRN (11:07)
[2023-09-17 18:58] VITALS: BP 127/61; TEMP 97.9; O2SAT 87
[2023-09-17] MEDS: MIRTAZAPINE 15 MG TAB PO SCH (20:40)
[2023-09-17] MEDS: ONDANSETRON 4MG ORAL DISINTEGRATING TAB PO PRN (20:42)
[2023-09-18] MEDS ORDERED: TIOTROPIUM INHALER/CAPSULE (SPIRIVA) As Ordered ONE (09:55)
[2023-09-18] MEDS ORDERED: SERTRALINE HCL 50 MG TAB As Ordered ONE (09:55)
[2023-09-18] MEDS ORDERED: LOSARTAN 50MG TABLET As Ordered ONE (09:56)
[2023-09-18] MEDS ORDERED: OMEPRAZOLE 20MG CAP As Ordered ONE (09:56)
[2023-09-18] MEDS ORDERED: MULTIVITAMINS/MINERALS THERAP 1 TAB As Ordered ONE (09:56)
[2023-09-18 17:01] VITALS: BP 128/96; TEMP 98.7; O2SAT 97
[2023-09-18] MEDS: SENNA 8.6 MG TAB (SENOKOT) PO PRN (18:45)
[2023-09-18] MEDS: LIDOCAINE 5% OINT 30GM TUBE TOP PRN (18:45)
[2023-09-18] MEDS: ALBUTEROL SULFATE 2.5MG/0.5ML INH NEB SOLN INH PRN (18:48)
[2023-09-19 06:23] VITALS: BP 127/61; TEMP 100.7; O2SAT 97
[2023-09-19 11:57] VITALS: BP 107/68; TEMP 99.3; O2SAT 98
[2023-09-19 12:15] LABS: APPEARANCE, URINE HAZY (CLEAR); BACTERIA, URINE AUTO NEGATIVE (NEGATIVE); BILIRUBIN, URINE AUTO NEGATIVE (NEGATIVE); BLOOD, URINE BLOOD NEGATIVE (NEGATIVE); COLOR, URINE YELLOW (YELLOW); GLUCOSE, URINE (UA) AUTO NEGATIVE (NEGATIVE); KETONE, URINE AUTO NEGATIVE (NEGATIVE); LEUKOCYTE ESTERASE, URINE AUTO NEGATIVE (NEGATIVE); MUCUS, URINE SMALL (NEGATIVE); NITRITE, URINE AUTO NEGATIVE (NEGATIVE); PROTEIN, URINE AUTO NEGATIVE (NEGATIVE); RBC, URINE AUTO 0 /HPF (0-3); SPECIFIC GRAVITY URINE AUTO 1.009 (1.002-1.035); SQUAMOUS EPITHELIAL CELL UR AU 0 /HPF (0-6); WBC, URINE AUTO 0 /HPF (0-3)
[2023-09-19 12:39] LABS: BASO % 0.2 % (0.0-1.0); EOS # 0.1 10^3/uL (0.0-0.5); EOS % 0.5 % (0.0-3.0); HEMATOCRIT 31.2 % (42.0-52.0); HEMOGLOBIN 9.6 g/dl (13.5-17.5); LYMPH # 1.7 10^3/uL (1.5-5.0); LYMPH % 9.5 % (24.0-44.0); MEAN CORPUSCULAR HEMOGLOBIN 23.6 pg (27.0-33.0); MEAN CORPUSCULAR HGB CONC 30.8 g/dl (32.0-36.5); MEAN CORPUSCULAR VOLUME 76.7 fl (80.0-96.0); MONO % 5.9 % (2.0-8.0); NEUTROPHILS # 14.6 10^3/uL (1.5-8.5); NEUTROPHILS % 82.5 % (36.0-66.0); PLATELET COUNT, AUTOMATED 603 10^3/uL (150-450); RED BLOOD COUNT 4.07 10^6/uL (4.30-6.10); WHITE BLOOD COUNT 17.7 10^3/uL (4.0-10.0)
[2023-09-19] MEDS ORDERED: ISOVUE-370 76% 100ML VIAL As Ordered ONE (12:54)
[2023-09-19] MEDS: LIDOCAINE 5% (LIDODERM) PATCH TD ONE (13:30)
[2023-09-19] MEDS: LevoFLOXacin 750 MG TABLET PO SCH (16:31)
[2023-09-19 17:01] VITALS: BP 132/62; TEMP 98.7; O2SAT 97
[2023-09-19] MEDS: PERCOCET 5MG/325MG TAB PO PRN (21:17)
[2023-09-20 06:17] VITALS: BP 127/62; TEMP 98; O2SAT 93
[2023-09-20] MEDS: LIDOCAINE 5% (LIDODERM) PATCH TD SCH (10:22)
[2023-09-20] MEDS: PERCOCET 5MG/325MG TAB PO PRN (12:09)
[2023-09-20] MEDS: ALBUTEROL 90 MCG/ACT 8GM HFA INHALER INH PRN (12:10)
[2023-09-20 17:28] VITALS: BP 144/75; TEMP 97.3; O2SAT 96
[2023-09-21 06:00] VITALS: BP 111/65; TEMP 98.9; O2SAT 94
[2023-09-21 08:18] VITALS: BP 119/65
[2023-09-21 08:35] LABS: BASO % 0.2 % (0.0-1.0); EOS # 0.1 10^3/uL (0.0-0.5); EOS % 0.8 % (0.0-3.0); HEMATOCRIT 33.7 % (42.0-52.0); HEMOGLOBIN 10.3 g/dl (13.5-17.5); LYMPH # 1.3 10^3/uL (1.5-5.0); LYMPH % 8.4 % (24.0-44.0); MEAN CORPUSCULAR HEMOGLOBIN 23.7 pg (27.0-33.0); MEAN CORPUSCULAR HGB CONC 30.6 g/dl (32.0-36.5); MEAN CORPUSCULAR VOLUME 77.6 fl (80.0-96.0); MONO # 0.9 10^3/uL (0.0-0.8); MONO % 5.6 % (2.0-8.0); NEUTROPHILS % 83.4 % (36.0-66.0); PLATELET COUNT, AUTOMATED 632 10^3/uL (150-450); RED BLOOD COUNT 4.34 10^6/uL (4.30-6.10); WHITE BLOOD COUNT 15.6 10^3/uL (4.0-10.0)
[2023-09-21] MEDS ORDERED: XARE20TA PO (12:44)
[2023-09-21] MEDS ORDERED: LOSA25TA13 PO (12:44)
[2023-09-21] MEDS ORDERED: LOSA50TA28 PO (12:44)
[2023-09-21] MEDS ORDERED: SPIR1CAP INH (12:44)
[2023-09-21] MEDS ORDERED: FINA5TAB2 PO (12:44)
[2023-09-21] MEDS ORDERED: ALBU2.5V10 INH (12:44)
[2023-09-21] MEDS ORDERED: OMEP-173 PO (12:44)
[2023-09-21] MEDS ORDERED: SIMV10TA21 PO (12:44)
[2023-09-21] MEDS ORDERED: FAMO1TAB11 PO (12:44)
[2023-09-21] MEDS ORDERED: LEVO1TAB40 PO (12:44)
[2023-09-21] MEDS ORDERED: SERT50TA29 PO (12:44)
[2023-09-21] MEDS ORDERED: MULT400T10 PO (12:44)
[2023-09-21] MEDS ORDERED: ONDA-284 PO (12:44)
[2023-09-21] MEDS ORDERED: ALBU8.5H INH (12:44)
[2023-09-21] MEDS ORDERED: LIDO5TD TD (12:44)
[2023-09-21] MEDS ORDERED: SENN-186 PO (12:44)
[2023-09-21] MEDS ORDERED: MIRT-10 PO (12:44)
[2023-09-21] MEDS ORDERED: PERCOCET PO (12:44)
[2023-09-22] MEDS ORDERED: FAMO40TA3 PO (00:12)
[2023-09-22] MEDS ORDERED: LEVO750T14 PO (00:12)
[2023-09-22] MEDS ORDERED: LIDO5TD TOP (00:14)
[2023-09-22] MEDS ORDERED: SENN8.6T28 PO (00:25)
[2023-09-22] MEDS ORDERED: XARE20TA PO (00:25)
[2023-09-22] MEDS ORDERED: MIRT-88 PO (00:25)
[2023-09-22] MEDS ORDERED: MULT-40 PO (00:25)
[2023-09-22] MEDS ORDERED: PERCOCET PO (00:25)
[2023-09-22] MEDS ORDERED: SERT50TA29 PO (00:25)
[2023-09-22] MEDS ORDERED: OMEP1CAP73 PO (00:25)
== END 2023-09-21 16:45 | disposition home or self-care (01) | DRG 881 ==
LOC: M ED 21:02 → M ED INP 09-16 14:31 → M PSY 09-16 16:49
PROVIDERS: ADMIT Student in an Organized Health Care Education/Training Program; ATTEND Student in an Organized Health Care Education/Training Program
DX: F32.9 Major depressive disorder, single episode, unspecified (principal); J18.9 Pneumonia, unspecified organism; C34.31 Malignant neoplasm of lower lobe, right bronchus or lung; E46 Unspecified protein-calorie malnutrition; Z68.1 Body mass index [BMI] 19.9 or less, adult; R64 Cachexia; F41.1 Generalized anxiety disorder; I73.1 Thromboangiitis obliterans [Buerger's disease]; K21.9 Gastro-esophageal reflux disease without esophagitis; J44.9 Chronic obstructive pulmonary disease, unspecified; J43.9 Emphysema, unspecified; E78.5 Hyperlipidemia, unspecified; N40.0 Benign prostatic hyperplasia without lower urinary tract symptoms; F07.89 Other personality and behavioral disorders due to known physiological condition; F10.20 Alcohol dependence, uncomplicated; F17.200 Nicotine dependence, unspecified, uncomplicated; Z79.01 Long term (current) use of anticoagulants; Z79.899 Other long term (current) drug therapy; Z88.0 Allergy status to penicillin; Z88.6 Allergy status to analgesic agent; T43.212A Poisoning by selective serotonin and norepinephrine reuptake inhibitors, intentional self-harm, initial encounter; Z91.51 Personal history of suicidal behavior

== ENCOUNTER 2023-09-21 15:12 | Inpatient (IN) | payer MEDICARE, MEDICAID ==
[~2023-09-21] VITALS: Ht 182.9 cm; Wt 53.6 kg
[~2023-09-21 15:12] MED LIST changes: +LIDO5TD TD; +LOSA25TA13 PO; +MIRT-10 PO; +PERCOCET PO; +SERT50TA29 PO
[2023-09-21] MEDS ORDERED: MAALOX 30 ML SUSP *UDC PO PRN (15:20)
[2023-09-21 16:49] VITALS: BP 117/63; TEMP 99.2; O2SAT 97
[2023-09-21 19:38] VITALS: BP 113/58; TEMP 97.3; O2SAT 95
[2023-09-21] MEDS: MORPHINE 10 MG/ML 1ML VIAL IM ONE (19:53)
[2023-09-21 20:35] LABS: BLOOD UREA NITROGEN 9 MG/DL (9-23); CALCIUM LEVEL 8.7 MG/DL (8.3-10.6); CARBON DIOXIDE LEVEL 29 MMOL/L (20-31); CHLORIDE LEVEL 102 MMOL/L (98-107); CREATININE FOR GFR 0.68 MG/DL (0.70-1.30); GLOMERULAR FILTRATION RATE > 60.0 (>49); GLUCOSE, FASTING 73 MG/DL (74-106); MAGNESIUM LEVEL 1.7 MG/DL (1.8-2.4); POTASSIUM SERUM 4.3 MMOL/L (3.5-5.1); SODIUM LEVEL 138 MMOL/L (136-145)
[2023-09-21 23:14] VITALS: BP 106/55; TEMP 97.9; O2SAT 95
[2023-09-22] MEDS ORDERED: LEVO750T14 PO (00:12)
[2023-09-22] MEDS ORDERED: FAMO40TA3 PO (00:12)
[2023-09-22] MEDS ORDERED: LIDO5TD TOP (00:14)
[2023-09-22] MEDS ORDERED: MIRT-88 PO (00:25)
[2023-09-22] MEDS ORDERED: XARE20TA PO (00:25)
[2023-09-22] MEDS ORDERED: OMEP1CAP73 PO (00:25)
[2023-09-22] MEDS ORDERED: SENN8.6T28 PO (00:25)
[2023-09-22] MEDS ORDERED: PERCOCET PO (00:25)
[2023-09-22] MEDS ORDERED: MULT-40 PO (00:25)
[2023-09-22] MEDS ORDERED: SERT50TA29 PO (00:25)
[2023-09-22] MEDS ORDERED: HOME MED LIST COMPLETE! XX SCH (00:30)
[2023-09-22] MEDS: FAMOTIDINE 20 MG TAB PO SCH (00:32)
[2023-09-22] MEDS: MIRTAZAPINE 15 MG TAB PO SCH (00:33)
[2023-09-22] MEDS: RIVAROXABAN 20MG TAB (XARELTO) PO SCH (00:33)
[2023-09-22] MEDS: OMEPRAZOLE 20MG CAP PO SCH (00:33)
[2023-09-22 04:23] VITALS: BP 106/55; TEMP 97.1; O2SAT 95
[2023-09-22] MEDS: LevoFLOXacin 500 MG TABLET PO SCH (05:21)
[2023-09-22] MEDS: MORPHINE 2 MG/ML 1ML VIAL IV PRN (05:21)
[2023-09-22 05:24] LABS: BASO % 0.3 % (0.0-1.0); EOS # 0.2 10^3/uL (0.0-0.5); EOS % 1.4 % (0.0-3.0); HEMATOCRIT 32.1 % (42.0-52.0); HEMOGLOBIN 9.7 g/dl (13.5-17.5); LYMPH % 17.2 % (24.0-44.0); MEAN CORPUSCULAR HEMOGLOBIN 23.5 pg (27.0-33.0); MEAN CORPUSCULAR HGB CONC 30.2 g/dl (32.0-36.5); MEAN CORPUSCULAR VOLUME 77.7 fl (80.0-96.0); MONO # 0.9 10^3/uL (0.0-0.8); MONO % 7.7 % (2.0-8.0); NEUTROPHILS # 8.1 10^3/uL (1.5-8.5); NEUTROPHILS % 71.6 % (36.0-66.0); PLATELET COUNT, AUTOMATED 586 10^3/uL (150-450); RED BLOOD COUNT 4.13 10^6/uL (4.30-6.10); WHITE BLOOD COUNT 11.4 10^3/uL (4.0-10.0)
[2023-09-22 05:42] LABS: BLOOD UREA NITROGEN 9 MG/DL (9-23); CALCIUM LEVEL 8.9 MG/DL (8.3-10.6); CARBON DIOXIDE LEVEL 31 MMOL/L (20-31); CHLORIDE LEVEL 102 MMOL/L (98-107); CREATININE FOR GFR 0.65 MG/DL (0.70-1.30); GLOMERULAR FILTRATION RATE > 60.0 (>49); GLUCOSE, FASTING 83 MG/DL (74-106); IRON (FE) 7 UG/DL (65-175); MAGNESIUM LEVEL 1.8 MG/DL (1.8-2.4); PERCENT SATURATION 2.7 % (19.7-50.0); POTASSIUM SERUM 4.2 MMOL/L (3.5-5.1); SODIUM LEVEL 138 MMOL/L (136-145); TOTAL IRON BINDING CAPACITY 257 UG/DL (250-425)
[2023-09-22 05:44] LABS: FERRITIN 45.6 NG/ML (10.5-307.3)
[2023-09-22 07:38] VITALS: BP 107/60; TEMP 98.9; O2SAT 94
[2023-09-22] MEDS: LOSARTAN 50MG TABLET PO SCH (08:08)
[2023-09-22] MEDS: FINASTERIDE 5MG TAB PO SCH (08:40)
[2023-09-22] MEDS: LIDOCAINE 5% (LIDODERM) PATCH TD SCH (08:40)
[2023-09-22] MEDS: LOSARTAN 25 MG TAB PO SCH (08:41)
[2023-09-22] MEDS: SERTRALINE HCL 50 MG TAB PO SCH (10:46)
[2023-09-22] MEDS: IPRATROPIUM 0.5MG/ALBUTEROL 2.5MG INH SOL UD 3ML (DUONEB) NEB PRN (11:18)
[2023-09-22] MEDS: TIOTROPIUM INHALER/CAPSULE (SPIRIVA) INH SCH (11:19)
[2023-09-22 11:37] VITALS: BP 114/66; TEMP 98.9; O2SAT 95
[2023-09-22] MEDS: MORPHINE 4 MG/ML 1ML VIAL IV PRN (11:39)
[2023-09-22] MEDS ORDERED: LIDOCAINE 1% MDV 20ML VIAL As Ordered ONE (14:49)
[2023-09-22 16:00] VITALS: BP_SYST 125; BP_SYST 129; BP_DIAS 57; BP_DIAS 59; TEMP 98.9; O2SAT 95; O2SAT 96
[2023-09-22] MEDS: SODIUM CHLORIDE 0.9% INJ 10 ML SYR IV SCH (18:17)
[2023-09-22 19:26] VITALS: BP 115/57; TEMP 97.9; O2SAT 94
[2023-09-22] MEDS: MOM 30ML SUSPENSION UDC PO PRN (20:07)
[2023-09-22] MEDS: SIMVASTATIN 10 MG TAB PO SCH (20:07)
[2023-09-23 03:45] VITALS: BP 135/64; TEMP 97.5; O2SAT 97
[2023-09-23 06:11] LABS: BASO % 0.3 % (0.0-1.0); EOS # 0.1 10^3/uL (0.0-0.5); EOS % 1.5 % (0.0-3.0); HEMATOCRIT 29.7 % (42.0-52.0); HEMOGLOBIN 8.9 g/dl (13.5-17.5); LYMPH # 1.3 10^3/uL (1.5-5.0); LYMPH % 13.4 % (24.0-44.0); MEAN CORPUSCULAR HEMOGLOBIN 23.4 pg (27.0-33.0); MONO # 0.7 10^3/uL (0.0-0.8); MONO % 6.9 % (2.0-8.0); NEUTROPHILS # 7.3 10^3/uL (1.5-8.5); NEUTROPHILS % 76.5 % (36.0-66.0); PLATELET COUNT, AUTOMATED 542 10^3/uL (150-450); RED BLOOD COUNT 3.81 10^6/uL (4.30-6.10); WHITE BLOOD COUNT 9.5 10^3/uL (4.0-10.0)
[2023-09-23 06:42] LABS: BLOOD UREA NITROGEN 10 MG/DL (9-23); CALCIUM LEVEL 8.2 MG/DL (8.3-10.6); CARBON DIOXIDE LEVEL 29 MMOL/L (20-31); CHLORIDE LEVEL 102 MMOL/L (98-107); CREATININE FOR GFR 0.69 MG/DL (0.70-1.30); GLOMERULAR FILTRATION RATE > 60.0 (>49); GLUCOSE, FASTING 126 MG/DL (74-106); POTASSIUM SERUM 4.1 MMOL/L (3.5-5.1); SODIUM LEVEL 138 MMOL/L (136-145)
[2023-09-23 07:55] VITALS: BP 103/53; TEMP 98.1; O2SAT 96
[2023-09-23] MEDS: traMADol 50 MG TAB PO ONE (10:27)
[2023-09-23 12:08] VITALS: BP 135/64; TEMP 98; O2SAT 95
[2023-09-23 15:30] VITALS: BP 104/42; TEMP 98.5; O2SAT 94
[2023-09-23 19:11] VITALS: BP 128/62; TEMP 98.2; O2SAT 95
[2023-09-24 03:38] VITALS: BP 131/68; TEMP 98.1; O2SAT 98
[2023-09-24 06:25] LABS: BASO % 0.3 % (0.0-1.0); EOS # 0.1 10^3/uL (0.0-0.5); EOS % 0.9 % (0.0-3.0); HEMOGLOBIN 8.5 g/dl (13.5-17.5); LYMPH # 1.3 10^3/uL (1.5-5.0); LYMPH % 11.8 % (24.0-44.0); MEAN CORPUSCULAR HEMOGLOBIN 23.6 pg (27.0-33.0); MEAN CORPUSCULAR HGB CONC 30.4 g/dl (32.0-36.5); MEAN CORPUSCULAR VOLUME 77.8 fl (80.0-96.0); MONO # 0.7 10^3/uL (0.0-0.8); MONO % 6.8 % (2.0-8.0); NEUTROPHILS # 8.6 10^3/uL (1.5-8.5); NEUTROPHILS % 79.2 % (36.0-66.0); PLATELET COUNT, AUTOMATED 543 10^3/uL (150-450); WHITE BLOOD COUNT 10.8 10^3/uL (4.0-10.0)
[2023-09-24 06:50] LABS: CHOLESTEROL RISK RATIO 4.19 (<5); HDL CHOLESTEROL 25.5 MG/DL (>40); LDL CHOLESTEROL 59.7 MG/DL (<100); NON-HDL-C 81.5 MG/DL
[2023-09-24 06:51] LABS: BLOOD UREA NITROGEN 10 MG/DL (9-23); CALCIUM LEVEL 8.6 MG/DL (8.3-10.6); CARBON DIOXIDE LEVEL 28 MMOL/L (20-31); CHLORIDE LEVEL 106 MMOL/L (98-107); CREATININE FOR GFR 0.66 MG/DL (0.70-1.30); GLOMERULAR FILTRATION RATE > 60.0 (>49); GLUCOSE, FASTING 136 MG/DL (74-106); SODIUM LEVEL 139 MMOL/L (136-145)
[2023-09-24 07:44] VITALS: BP 122/58; TEMP 98.1; O2SAT 94
[2023-09-24] MEDS: ACETAMINOPHEN TAB 650MG DOSE (2X325MG) PO PRN (08:37)
[2023-09-24 15:42] VITALS: BP 100/54; TEMP 98.2; O2SAT 95
[2023-09-24] MEDS: SODIUM CHLORIDE 0.9% INJ 10 ML SYR IV PRN (17:52)
[2023-09-24 20:08] VITALS: BP 100/50; TEMP 98.8; O2SAT 95
[2023-09-24] MEDS: ONDANSETRON 4MG 2ML VIAL IV PRN (20:38)
[2023-09-25 03:38] VITALS: BP 102/52; TEMP 98.9; O2SAT 94
[2023-09-25 06:33] LABS: BASO % 0.2 % (0.0-1.0); EOS # 0.1 10^3/uL (0.0-0.5); EOS % 0.8 % (0.0-3.0); HEMATOCRIT 27.4 % (42.0-52.0); HEMOGLOBIN 8.4 g/dl (13.5-17.5); LYMPH # 1.2 10^3/uL (1.5-5.0); LYMPH % 11.8 % (24.0-44.0); MEAN CORPUSCULAR HEMOGLOBIN 23.5 pg (27.0-33.0); MEAN CORPUSCULAR HGB CONC 30.7 g/dl (32.0-36.5); MEAN CORPUSCULAR VOLUME 76.8 fl (80.0-96.0); MONO # 0.8 10^3/uL (0.0-0.8); MONO % 8.2 % (2.0-8.0); NEUTROPHILS # 7.9 10^3/uL (1.5-8.5); NEUTROPHILS % 78.4 % (36.0-66.0); PLATELET COUNT, AUTOMATED 496 10^3/uL (150-450); RED BLOOD COUNT 3.57 10^6/uL (4.30-6.10)
[2023-09-25 06:56] LABS: BLOOD UREA NITROGEN 9 MG/DL (9-23); CALCIUM LEVEL 8.4 MG/DL (8.3-10.6); CARBON DIOXIDE LEVEL 31 MMOL/L (20-31); CHLORIDE LEVEL 103 MMOL/L (98-107); GLOMERULAR FILTRATION RATE > 60.0 (>49); GLUCOSE, FASTING 94 MG/DL (74-106); POTASSIUM SERUM 4.7 MMOL/L (3.5-5.1); SODIUM LEVEL 138 MMOL/L (136-145)
[2023-09-25 08:20] VITALS: BP 102/55; TEMP 98.3; O2SAT 96
[2023-09-25] MEDS: ALPRAZolam 0.5 MG TAB PO PRN (13:28)
[2023-09-25 15:53] VITALS: BP 125/80; TEMP 99.1; O2SAT 95
[2023-09-25] MEDS: DOCUSATE SODIUM 100MG CAPSULE PO PRN (17:19)
[2023-09-25 19:15] VITALS: BP 114/62; TEMP 99.1; O2SAT 96
[2023-09-25 21:12] LABS: URINE STREP PNEUMONIAE ANTIGEN NOT DETECTED (NOT DETECT)
[2023-09-25 22:42] VITALS: TEMP 97.7
[2023-09-26 03:14] VITALS: BP 118/61; TEMP 98.9; O2SAT 95
[2023-09-26 05:41] LABS: BASO % 0.4 % (0.0-1.0); EOS # 0.1 10^3/uL (0.0-0.5); EOS % 1.1 % (0.0-3.0); HEMATOCRIT 28.8 % (42.0-52.0); HEMOGLOBIN 8.9 g/dl (13.5-17.5); LYMPH # 1.1 10^3/uL (1.5-5.0); LYMPH % 10.4 % (24.0-44.0); MEAN CORPUSCULAR HEMOGLOBIN 23.4 pg (27.0-33.0); MEAN CORPUSCULAR HGB CONC 30.9 g/dl (32.0-36.5); MEAN CORPUSCULAR VOLUME 75.8 fl (80.0-96.0); MONO # 0.9 10^3/uL (0.0-0.8); MONO % 8.3 % (2.0-8.0); NEUTROPHILS # 8.2 10^3/uL (1.5-8.5); NEUTROPHILS % 79.1 % (36.0-66.0); PLATELET COUNT, AUTOMATED 490 10^3/uL (150-450); WHITE BLOOD COUNT 10.4 10^3/uL (4.0-10.0)
[2023-09-26 06:08] LABS: BLOOD UREA NITROGEN 8 MG/DL (9-23); CALCIUM LEVEL 8.4 MG/DL (8.3-10.6); CARBON DIOXIDE LEVEL 29 MMOL/L (20-31); CHLORIDE LEVEL 105 MMOL/L (98-107); CREATININE FOR GFR 0.65 MG/DL (0.70-1.30); GLOMERULAR FILTRATION RATE > 60.0 (>49); GLUCOSE, FASTING 132 MG/DL (74-106); POTASSIUM SERUM 4.1 MMOL/L (3.5-5.1); SODIUM LEVEL 139 MMOL/L (136-145)
[2023-09-26 08:00] VITALS: BP 118/58; TEMP 97.8; O2SAT 94
[2023-09-26 12:00] VITALS: BP 114/55; TEMP 98.2; O2SAT 100
[2023-09-26] MEDS ORDERED: PERCOCET 5MG/325MG TAB PO PRN (12:50)
[2023-09-26 16:00] VITALS: BP 114/55; TEMP 98; O2SAT 95
[2023-09-26 17:10] VITALS: BP 145/82; TEMP 98.2; O2SAT 99
[2023-09-26] MEDS: PERCOCET 5MG/325MG TAB PO PRN (17:22)
[2023-09-26 20:00] VITALS: BP 108/57; TEMP 97.9; O2SAT 96
[2023-09-27 04:20] VITALS: BP 119/68; TEMP 98.4; O2SAT 95
[2023-09-27 06:12] LABS: BASO % 0.3 % (0.0-1.0); EOS # 0.1 10^3/uL (0.0-0.5); EOS % 0.8 % (0.0-3.0); HEMATOCRIT 28.7 % (42.0-52.0); HEMOGLOBIN 8.7 g/dl (13.5-17.5); MEAN CORPUSCULAR HEMOGLOBIN 23.3 pg (27.0-33.0); MEAN CORPUSCULAR HGB CONC 30.3 g/dl (32.0-36.5); MEAN CORPUSCULAR VOLUME 76.9 fl (80.0-96.0); MONO # 0.6 10^3/uL (0.0-0.8); MONO % 6.4 % (2.0-8.0); NEUTROPHILS # 7.9 10^3/uL (1.5-8.5); NEUTROPHILS % 81.8 % (36.0-66.0); PLATELET COUNT, AUTOMATED 516 10^3/uL (150-450); RED BLOOD COUNT 3.73 10^6/uL (4.30-6.10); WHITE BLOOD COUNT 9.6 10^3/uL (4.0-10.0)
[2023-09-27 06:31] LABS: BLOOD UREA NITROGEN 8 MG/DL (9-23); CALCIUM LEVEL 8.7 MG/DL (8.3-10.6); CARBON DIOXIDE LEVEL 29 MMOL/L (20-31); CHLORIDE LEVEL 106 MMOL/L (98-107); CREATININE FOR GFR 0.66 MG/DL (0.70-1.30); GLOMERULAR FILTRATION RATE > 60.0 (>49); GLUCOSE, FASTING 90 MG/DL (74-106); POTASSIUM SERUM 4.1 MMOL/L (3.5-5.1); SODIUM LEVEL 141 MMOL/L (136-145)
[2023-09-27 12:00] VITALS: BP 108/64; TEMP 98.2; O2SAT 97
[2023-09-27] MEDS: LevoFLOXacin 750 MG TABLET PO SCH (17:23)
[2023-09-27 20:00] VITALS: BP 108/64; TEMP 97.9; O2SAT 93
[2023-09-28 04:00] VITALS: BP 106/61; TEMP 97.3; O2SAT 97
[2023-09-28] MEDS ORDERED: LevoFLOXacin 500 MG TABLET PO SCH (06:00)
[2023-09-28 06:55] LABS: BASO % 0.3 % (0.0-1.0); EOS # 0.1 10^3/uL (0.0-0.5); HEMATOCRIT 28.8 % (42.0-52.0); HEMOGLOBIN 8.7 g/dl (13.5-17.5); LYMPH # 1.1 10^3/uL (1.5-5.0); LYMPH % 14.7 % (24.0-44.0); MEAN CORPUSCULAR HEMOGLOBIN 23.2 pg (27.0-33.0); MEAN CORPUSCULAR HGB CONC 30.2 g/dl (32.0-36.5); MEAN CORPUSCULAR VOLUME 76.8 fl (80.0-96.0); MONO # 0.6 10^3/uL (0.0-0.8); MONO % 7.2 % (2.0-8.0); NEUTROPHILS % 76.4 % (36.0-66.0); PLATELET COUNT, AUTOMATED 476 10^3/uL (150-450); RED BLOOD COUNT 3.75 10^6/uL (4.30-6.10); WHITE BLOOD COUNT 7.8 10^3/uL (4.0-10.0)
[2023-09-28 07:23] LABS: BLOOD UREA NITROGEN 7 MG/DL (9-23); CALCIUM LEVEL 8.6 MG/DL (8.3-10.6); CARBON DIOXIDE LEVEL 31 MMOL/L (20-31); CHLORIDE LEVEL 105 MMOL/L (98-107); CREATININE FOR GFR 0.64 MG/DL (0.70-1.30); GLOMERULAR FILTRATION RATE > 60.0 (>49); GLUCOSE, FASTING 90 MG/DL (74-106); POTASSIUM SERUM 4.7 MMOL/L (3.5-5.1); SODIUM LEVEL 140 MMOL/L (136-145)
[2023-09-28 09:00] VITALS: BP 120/63
[2023-09-28] MEDS ORDERED: LEVO1TAB40 PO (10:24)
[2023-09-28 11:30] VITALS: BP 121/64; TEMP 97.9; O2SAT 97
[2023-09-28] MEDS ORDERED: XANA0.5T PO (13:03)
[2023-09-28] MEDS: ALPRAZolam 0.5 MG TAB PO ONE (13:09)
== END 2023-09-28 16:13 | disposition home or self-care (01) | DRG 849 ==
LOC: M PCU 16:47 → M MSPAV 09-26 17:04
PROVIDERS: ADMIT Student in an Organized Health Care Education/Training Program; ATTEND General Practice
PROC: 05HB33Z Insertion of Infusion Device into Right Basilic Vein, Percutaneous Approach (ICD-10-PCS; principal; 2023-09-23)
DX: Z51.0 Encounter for antineoplastic radiation therapy (principal); J18.9 Pneumonia, unspecified organism; E46 Unspecified protein-calorie malnutrition; R64 Cachexia; Z68.1 Body mass index [BMI] 19.9 or less, adult; J44.0 Chronic obstructive pulmonary disease with (acute) lower respiratory infection; C34.31 Malignant neoplasm of lower lobe, right bronchus or lung; F32.9 Major depressive disorder, single episode, unspecified; J43.9 Emphysema, unspecified; I73.1 Thromboangiitis obliterans [Buerger's disease]; I10 Essential (primary) hypertension; E78.5 Hyperlipidemia, unspecified; F41.9 Anxiety disorder, unspecified; N40.0 Benign prostatic hyperplasia without lower urinary tract symptoms; K59.00 Constipation, unspecified; K21.9 Gastro-esophageal reflux disease without esophagitis; F10.11 Alcohol abuse, in remission; D75.839 Thrombocytosis, unspecified; D50.9 Iron deficiency anemia, unspecified; I77.6 Arteritis, unspecified; G54.6 Phantom limb syndrome with pain; Z79.01 Long term (current) use of anticoagulants; Z79.899 Other long term (current) drug therapy; Z88.0 Allergy status to penicillin; Z88.6 Allergy status to analgesic agent; Z91.51 Personal history of suicidal behavior; Z87.891 Personal history of nicotine dependence

== ENCOUNTER 2023-09-28 12:30 | Outpatient (RCR) | payer MEDICARE, MEDICAID ==
[~2023-09-28 12:30] MED LIST changes: +FAMO40TA3 PO; +LEVO750T14 PO; +LIDO5TD TOP; +MIRT-88 PO; +MULT-40 PO; +OMEP1CAP73 PO; +SENN8.6T28 PO
[2023-09-28] MEDS ORDERED: XANA0.5T PO (13:03)
== END 2023-09-30 ==
LOC: M ONCR 12:30
PROVIDERS: ATTEND General Practice
DX: Z51.0 Encounter for antineoplastic radiation therapy (principal); C34.31 Malignant neoplasm of lower lobe, right bronchus or lung

== ENCOUNTER 2023-11-04 15:38 | Inpatient (IN) | payer MEDICARE, MEDICAID ==
[~2023-11-04] VITALS: Ht 182.9 cm; Wt 50.5 kg
[~2023-11-04 15:38] MED LIST changes: +XANA0.5T PO
[2023-11-04 16:19] LABS: BASO % 0.5 % (0.0-1.0); EOS # 0.1 10^3/uL (0.0-0.5); EOS % 0.9 % (0.0-3.0); HEMATOCRIT 39.5 % (42.0-52.0); HEMOGLOBIN 11.9 g/dl (13.5-17.5); LYMPH # 1.7 10^3/uL (1.5-5.0); LYMPH % 19.5 % (24.0-44.0); MEAN CORPUSCULAR HEMOGLOBIN 22.5 pg (27.0-33.0); MEAN CORPUSCULAR HGB CONC 30.1 g/dl (32.0-36.5); MEAN CORPUSCULAR VOLUME 74.8 fl (80.0-96.0); MONO # 0.6 10^3/uL (0.0-0.8); MONO % 6.5 % (2.0-8.0); NEUTROPHILS # 6.2 10^3/uL (1.5-8.5); PLATELET COUNT, AUTOMATED 362 10^3/uL (150-450); RED BLOOD COUNT 5.28 10^6/uL (4.30-6.10); WHITE BLOOD COUNT 8.6 10^3/uL (4.0-10.0)
[2023-11-04] MEDS: NS 1,000 ML IV SCH (16:45)
[2023-11-04 16:52] LABS: ETHYL ALCOHOL (ETHANOL) 0.187 % (0.000-0.010)
[2023-11-04 16:54] LABS: SALICYLATE LEVEL < 3.0 MG/DL (<30)
[2023-11-04 16:55] LABS: ALBUMIN 3.8 G/DL (3.2-5.2); ALKALINE PHOSPHATASE 98 U/L (46-116); ALT/SGPT 13 U/L (7.0-40); AST/SGOT 27 U/L (<34); BILIRUBIN,DIRECT < 0.1 MG/DL (<0.4); BILIRUBIN,TOTAL 0.3 MG/DL (0.3-1.2); BLOOD UREA NITROGEN 12 MG/DL (9-23); CALCIUM LEVEL 9.3 MG/DL (8.3-10.6); CARBON DIOXIDE LEVEL 28 MMOL/L (20-31); CHLORIDE LEVEL 106 MMOL/L (98-107); CREATININE FOR GFR 0.58 MG/DL (0.70-1.30); GLOMERULAR FILTRATION RATE > 60.0 (>49); GLUCOSE, FASTING 79 MG/DL (74-106); POTASSIUM SERUM 4.4 MMOL/L (3.5-5.1); SODIUM LEVEL 139 MMOL/L (136-145); TOTAL PROTEIN 7.7 G/DL (5.7-8.2)
[2023-11-04 17:03] LABS: CPK CREATINE PHOSPHOKINASE 54 U/L (46-171)
[2023-11-04 18:16] LABS: AMPHETAMINES LEVEL URINE NEGATIVE (NEGATIVE); BARBITURATES URINE NEGATIVE (NEGATIVE); BENZODIAZEPINES URINE NEGATIVE (NEGATIVE); COCAINE METABOLITE URINE NEGATIVE (NEGATIVE); METHADONE URINE NEGATIVE (NEGATIVE); OPIATES URINE NEGATIVE (NEGATIVE); PHENCYCLIDINE URINE NEGATIVE (NEGATIVE)
[2023-11-04 18:18] LABS: CANNABINOIDS URINE POSITIVE (NEGATIVE)
[2023-11-04] MEDS ORDERED: HOME MED LIST COMPLETE! XX SCH (22:50)
[2023-11-05] MEDS ORDERED: diphenhydrAMINE 25MG CAP PO PRN (13:00)
[2023-11-05] MEDS ORDERED: ACETAMINOPHEN TAB 650MG DOSE (2X325MG) PO PRN (13:00)
[2023-11-05] MEDS ORDERED: MOM 30ML SUSPENSION UDC PO PRN (13:00)
[2023-11-05] MEDS: IBUPROFEN 400MG TAB PO PRN (13:57)
[2023-11-05] MEDS: MAALOX 30 ML SUSP *UDC PO PRN (21:16)
[2023-11-05] MEDS ORDERED: SENNA 8.6 MG TAB (SENOKOT) PO PRN (21:55)
[2023-11-05] MEDS ORDERED: LIDOCAINE 5% (LIDODERM) PATCH TOP PRN (21:55)
[2023-11-05] MEDS: ALBUTEROL 90 MCG/ACT 8GM HFA INHALER INH PRN (22:24)
[2023-11-05] MEDS: OMEPRAZOLE 20MG CAP PO SCH (22:24)
[2023-11-05] MEDS: FAMOTIDINE 20 MG TAB PO SCH (22:24)
[2023-11-05] MEDS: RIVAROXABAN 20MG TAB (XARELTO) PO SCH (22:59)
[2023-11-05] MEDS: SIMVASTATIN 10 MG TAB PO SCH (23:00)
[2023-11-06 06:27] VITALS: BP 136/64; TEMP 97.2; O2SAT 96
[2023-11-06] MEDS: TIOTROPIUM INHALER/CAPSULE (SPIRIVA) INH SCH (08:24)
[2023-11-06] MEDS: FINASTERIDE 5MG TAB PO SCH (08:40)
[2023-11-06 10:36] VITALS: BP 160/79
[2023-11-06] MEDS: LOSARTAN 50MG TABLET PO SCH ×2 (10:38→21:21)
[2023-11-06 15:24] VITALS: BP 160/94; TEMP 97.4; O2SAT 100
[2023-11-06] MEDS: PREVNAR-20 VACCINE 0.5ML SYRINGE IM.IMMUN ONE (18:09)
[2023-11-06] MEDS ORDERED: NALOXONE INJ 0.4MG/1ML VIAL IV PRN (19:05)
[2023-11-06] MEDS ORDERED: ACETAMINOPHEN 500 MG TAB PO PRN (19:05)
[2023-11-06] MEDS ORDERED: MIRTAZAPINE 15 MG TAB PO SCH (21:00)
[2023-11-06] MEDS: PERCOCET 5MG/325MG TAB PO ONE (21:19)
[2023-11-06] MEDS: PERCOCET 5MG/325MG TAB PO PRN (22:50)
[2023-11-06] MEDS: traZODone 50 MG TAB PO PRN (22:55)
[2023-11-07 06:26] VITALS: BP 100/57; TEMP 97.3; O2SAT 100
[2023-11-07 16:28] VITALS: BP 122/96; TEMP 97.5; O2SAT 98
[2023-11-07] MEDS: MIRTAZAPINE 15 MG TAB PO SCH (20:18)
[2023-11-08 06:16] VITALS: BP 145/70; TEMP 98.4; O2SAT 96
[2023-11-08] MEDS: ONDANSETRON 4MG ORAL DISINTEGRATING TAB PO PRN ×2 (06:38→18:55)
[2023-11-08] MEDS: SERTRALINE HCL 50 MG TAB PO SCH (08:01)
[2023-11-08] MEDS: ALBUTEROL SULFATE 2.5MG/0.5ML INH NEB SOLN INH PRN (15:50)
[2023-11-08 16:58] VITALS: BP 126/68; TEMP 97.3; O2SAT 99
[2023-11-09 06:31] VITALS: BP 147/79; TEMP 98; O2SAT 96
[2023-11-09 09:36] VITALS: BP 126/64
[2023-11-09 17:19] VITALS: BP 140/67; TEMP 97.7; O2SAT 98
[2023-11-10 06:24] VITALS: BP 131/63; TEMP 97.2; O2SAT 97
[2023-11-10] MEDS ORDERED: ISOVUE-370 76% 100ML VIAL As Ordered ONE (10:53)
[2023-11-10 15:46] VITALS: BP 130/80; TEMP 98.2; O2SAT 97
[2023-11-11 06:18] VITALS: BP 140/63; TEMP 97.5; O2SAT 94
[2023-11-11 07:01] VITALS: O2SAT 95
[2023-11-11 08:14] VITALS: BP 145/78
== END 2023-11-11 11:10 | disposition home or self-care (01) | DRG 885 ==
LOC: EDBD 15:38 → M ED 15:38 → M ED INP 11-05 12:57 → M PSY 11-05 14:47
PROVIDERS: ADMIT Psychiatry & Neurology Psychiatry; ATTEND Psychiatry & Neurology Psychiatry
DX: F33.2 Major depressive disorder, recurrent severe without psychotic features (principal); C34.31 Malignant neoplasm of lower lobe, right bronchus or lung; E46 Unspecified protein-calorie malnutrition; R64 Cachexia; J44.9 Chronic obstructive pulmonary disease, unspecified; T43.022A Poisoning by tetracyclic antidepressants, intentional self-harm, initial encounter; K21.9 Gastro-esophageal reflux disease without esophagitis; I10 Essential (primary) hypertension; I73.1 Thromboangiitis obliterans [Buerger's disease]; G54.8 Other nerve root and plexus disorders; N40.0 Benign prostatic hyperplasia without lower urinary tract symptoms; K59.00 Constipation, unspecified; F10.11 Alcohol abuse, in remission; Z79.01 Long term (current) use of anticoagulants; Z79.899 Other long term (current) drug therapy; Z88.0 Allergy status to penicillin; Z88.6 Allergy status to analgesic agent; Z87.891 Personal history of nicotine dependence; Z89.512 Acquired absence of left leg below knee

== ENCOUNTER 2023-12-03 20:44 | Observation (INO) | payer MEDICARE, MEDICAID ==
[~2023-12-03] VITALS: Ht 182.9 cm; Wt 51.7 kg
[~2023-12-03 20:44] MED LIST changes: +ONDA-284 SL
[2023-12-04] MEDS ORDERED: ONDANSETRON 4MG 2ML VIAL As Ordered ONE (00:05)
[2023-12-04] MEDS ORDERED: KETOROLAC 30 MG/ML 1ML VIAL As Ordered ONE (00:06)
[2023-12-04] MEDS: ONDANSETRON 4MG 2ML VIAL IV ONE ×2 (00:10→03:41)
[2023-12-04 01:00] LABS: BASO % 0.2 % (0.0-1.0); EOS % 0.1 % (0.0-3.0); HEMATOCRIT 36.7 % (42.0-52.0); HEMOGLOBIN 10.8 g/dl (13.5-17.5); LYMPH # 0.3 10^3/uL (1.5-5.0); LYMPH % 2.9 % (24.0-44.0); MEAN CORPUSCULAR HEMOGLOBIN 22.5 pg (27.0-33.0); MEAN CORPUSCULAR HGB CONC 29.4 g/dl (32.0-36.5); MEAN CORPUSCULAR VOLUME 76.3 fl (80.0-96.0); MONO # 0.3 10^3/uL (0.0-0.8); MONO % 2.3 % (2.0-8.0); NEUTROPHILS # 10.6 10^3/uL (1.5-8.5); NEUTROPHILS % 93.8 % (36.0-66.0); PLATELET COUNT, AUTOMATED 344 10^3/uL (150-450); RED BLOOD COUNT 4.81 10^6/uL (4.30-6.10); WHITE BLOOD COUNT 11.3 10^3/uL (4.0-10.0)
[2023-12-04] MEDS: METOCLOPRAMIDE INJ 10MG/2ML VIAL IV ONE (01:10)
[2023-12-04] MEDS: MORPHINE 4 MG/ML 1ML VIAL IV PRN ×2 (01:10→07:47)
[2023-12-04 01:24] LABS: LIPASE 30 U/L (12-53)
[2023-12-04 01:26] LABS: ALBUMIN 3.9 G/DL (3.2-5.2); ALKALINE PHOSPHATASE 117 U/L (46-116); ALT/SGPT 24 U/L (7.0-40); AST/SGOT 33 U/L (<34); BILIRUBIN,DIRECT 0.2 MG/DL (<0.4); BILIRUBIN,TOTAL 0.7 MG/DL (0.3-1.2); BLOOD UREA NITROGEN 20 MG/DL (9-23); CALCIUM LEVEL 9.3 MG/DL (8.3-10.6); CARBON DIOXIDE LEVEL 16 MMOL/L (20-31); CHLORIDE LEVEL 101 MMOL/L (98-107); CREATININE FOR GFR 0.53 MG/DL (0.70-1.30); GLOMERULAR FILTRATION RATE > 60.0 (>49); GLUCOSE, FASTING 154 MG/DL (74-106); POTASSIUM SERUM 3.9 MMOL/L (3.5-5.1); SODIUM LEVEL 134 MMOL/L (136-145); TOTAL PROTEIN 8.2 G/DL (5.7-8.2)
[2023-12-04] MEDS ORDERED: ISOVUE-370 76% 100ML VIAL As Ordered ONE (01:46)
[2023-12-04] MEDS: NS 1,000 ML IV ONE (03:41)
[2023-12-04] MEDS: IPRATROPIUM 0.5MG/ALBUTEROL 2.5MG INH SOL UD 3ML (DUONEB) NEB ONE (03:45)
[2023-12-04 06:49] LABS: ERYTHROCYTE SEDIMENTATION RATE 61 mm/hr (0-20)
[2023-12-04] MEDS: IPRATROPIUM 0.5MG/ALBUTEROL 2.5MG INH SOL UD 3ML (DUONEB) NEB PRN (06:53)
[2023-12-04] MEDS: SCOPOLAMINE 1MG TRANSDERMAL PATCH TOP SCH (07:09)
[2023-12-04 07:47] LABS: VENOUS BASE EXCESS -8.3 (-2.0-2.0); VENOUS HCO3 17.4 MMOL/L (23.0-27.0); VENOUS PARTIAL PRESSURE CO2 36.4 mmHg (38.0-50.0); VENOUS PARTIAL PRESSURE O2 53.5 mmHg (30.0-50.0); VENOUS PH 7.297 UNITS (7.330-7.430); VENOUS STANDARD HCO3 17.6 MMOL/L; VENOUS TOTAL CO2 18.5 MMOL/L (24.0-28.0)
[2023-12-04] MEDS: ONDANSETRON 4MG 2ML VIAL IV SCH (07:47)
[2023-12-04] MEDS ORDERED: HOME MED LIST COMPLETE! XX SCH (08:05)
[2023-12-04 08:33] LABS: ETHYL ALCOHOL (ETHANOL) 0.004 % (0.000-0.010)
[2023-12-04 08:34] LABS: SALICYLATE LEVEL 3.8 MG/DL (<30)
[2023-12-04 08:40] LABS: OSMOLALITY SERUM 307 MOSM/KG (280-301)
[2023-12-04 08:47] LABS: ACETONE/KETONE > 4.50 MMOL/L (0.02-0.27); PROCALCITONIN 0.06 ng/ml
[2023-12-04] MEDS ORDERED: ACETAMINOPHEN 325 MG TAB PO PRN (10:05)
[2023-12-04] MEDS ORDERED: MOM 30ML SUSPENSION UDC PO PRN (10:05)
[2023-12-04] MEDS ORDERED: IPRATROPIUM 0.5MG/ALBUTEROL 2.5MG INH SOL UD 3ML (DUONEB) NEB PRN (10:05)
[2023-12-04] MEDS ORDERED: MAALOX 30 ML SUSP *UDC PO PRN (10:05)
[2023-12-04 10:29] LABS: AMPHETAMINES LEVEL URINE NEGATIVE (NEGATIVE); BARBITURATES URINE NEGATIVE (NEGATIVE); BENZODIAZEPINES URINE NEGATIVE (NEGATIVE); COCAINE METABOLITE URINE NEGATIVE (NEGATIVE); METHADONE URINE NEGATIVE (NEGATIVE); PHENCYCLIDINE URINE NEGATIVE (NEGATIVE)
[2023-12-04] MEDS: MULTIVITAMINS/MINERALS THERAP 1 TAB PO SCH (10:30)
[2023-12-04] MEDS: SERTRALINE HCL 50 MG TAB PO SCH (10:31)
[2023-12-04] MEDS: DOCUSATE SODIUM 100MG CAPSULE PO SCH (10:31)
[2023-12-04] MEDS: FINASTERIDE 5MG TAB PO SCH (10:31)
[2023-12-04] MEDS: PANTOPRAZOLE 40MG VIAL IV SCH (10:32)
[2023-12-04 10:33] LABS: BLOOD UREA NITROGEN 21 MG/DL (9-23); CALCIUM LEVEL 9.5 MG/DL (8.3-10.6); CARBON DIOXIDE LEVEL 21 MMOL/L (20-31); CHLORIDE LEVEL 106 MMOL/L (98-107); CREATININE FOR GFR 0.55 MG/DL (0.70-1.30); GLOMERULAR FILTRATION RATE > 60.0 (>49); GLUCOSE, FASTING 131 MG/DL (74-106); POTASSIUM SERUM 4.1 MMOL/L (3.5-5.1); SODIUM LEVEL 139 MMOL/L (136-145)
[2023-12-04 10:35] LABS: CANNABINOIDS URINE POSITIVE (NEGATIVE); OPIATES URINE POSITIVE (NEGATIVE)
[2023-12-04] MEDS: D5W/0.9% SODIUM CHLORIDE 1,000 ML IV SCH (11:24)
[2023-12-04] MEDS: FLEET ENEMA PR SCH (12:00)
[2023-12-04] MEDS: MORPHINE 2 MG/ML 1ML VIAL IV PRN (12:10)
[2023-12-04] MEDS: BISACODYL 10MG SUPP PR SCH (12:11)
[2023-12-04] MEDS: IPRATROPIUM 0.5MG/ALBUTEROL 2.5MG INH SOL UD 3ML (DUONEB) NEB SCH (13:05)
[2023-12-04] MEDS: TIOTROPIUM INHALER/CAPSULE (SPIRIVA) INH SCH (13:05)
[2023-12-04 16:35] VITALS: BP 158/72; TEMP 98.6; O2SAT 97
[2023-12-04 20:27] VITALS: BP 135/68; TEMP 97.4; O2SAT 96
[2023-12-04] MEDS: FAMOTIDINE 20 MG TAB PO SCH (21:14)
[2023-12-04] MEDS: SIMVASTATIN 10 MG TAB PO SCH (21:14)
[2023-12-04] MEDS: RIVAROXABAN 20MG TAB (XARELTO) PO SCH (21:14)
[2023-12-04] MEDS: MIRTAZAPINE 15 MG TAB PO SCH (21:14)
[2023-12-04 23:53] VITALS: BP 108/55; TEMP 98.1; O2SAT 96
[2023-12-05 04:04] VITALS: BP 139/63; TEMP 97.1; O2SAT 96
[2023-12-05 06:40] LABS: BASO % 0.1 % (0.0-1.0); EOS # 0.1 10^3/uL (0.0-0.5); EOS % 0.6 % (0.0-3.0); HEMATOCRIT 30.9 % (42.0-52.0); HEMOGLOBIN 9.2 g/dl (13.5-17.5); LYMPH # 0.8 10^3/uL (1.5-5.0); LYMPH % 10.2 % (24.0-44.0); MEAN CORPUSCULAR HEMOGLOBIN 22.4 pg (27.0-33.0); MEAN CORPUSCULAR HGB CONC 29.8 g/dl (32.0-36.5); MEAN CORPUSCULAR VOLUME 75.2 fl (80.0-96.0); MONO # 0.6 10^3/uL (0.0-0.8); MONO % 7.3 % (2.0-8.0); NEUTROPHILS # 6.5 10^3/uL (1.5-8.5); NEUTROPHILS % 81.2 % (36.0-66.0); PLATELET COUNT, AUTOMATED 251 10^3/uL (150-450); RED BLOOD COUNT 4.11 10^6/uL (4.30-6.10); WHITE BLOOD COUNT 8.1 10^3/uL (4.0-10.0)
[2023-12-05 07:18] LABS: ALBUMIN 3.2 G/DL (3.2-5.2); ALKALINE PHOSPHATASE 83 U/L (46-116); ALT/SGPT 19 U/L (7.0-40); AST/SGOT 32 U/L (<34); BILIRUBIN,TOTAL 0.9 MG/DL (0.3-1.2); BLOOD UREA NITROGEN 16 MG/DL (9-23); CALCIUM LEVEL 8.9 MG/DL (8.3-10.6); CARBON DIOXIDE LEVEL 25 MMOL/L (20-31); CHLORIDE LEVEL 108 MMOL/L (98-107); CREATININE FOR GFR 0.56 MG/DL (0.70-1.30); GLOMERULAR FILTRATION RATE > 60.0 (>49); GLUCOSE, FASTING 97 MG/DL (74-106); MAGNESIUM LEVEL 1.8 MG/DL (1.8-2.4); SODIUM LEVEL 138 MMOL/L (136-145); TOTAL PROTEIN 6.5 G/DL (5.7-8.2)
[2023-12-05 07:52] VITALS: BP 126/60; TEMP 97.4; O2SAT 97
[2023-12-05] MEDS: POTASSIUM CHLORIDE 10MEQ SR TABLET PO ONE ×2 (08:11→11:57)
[2023-12-05] MEDS ORDERED: MIRALAX *UNIT DOSE* 17GM PACKET PO PRN (09:15)
[2023-12-05] MEDS ORDERED: BISACODYL 10MG SUPP PR PRN (09:15)
[2023-12-05] MEDS ORDERED: MOM 30ML SUSPENSION UDC PO PRN (09:15)
[2023-12-05] MEDS: LACTULOSE 20GM/30ML SYRUP UDC PO ONE (11:57)
[2023-12-05 12:00] VITALS: BP 143/71; TEMP 97.3; O2SAT 96
[2023-12-05] MEDS ORDERED: SENN-52 PO (12:26)
[2023-12-05] MEDS ORDERED: MIRA33506 PO (12:26)
[2023-12-05] MEDS ORDERED: SENOKOT S TAB PO SCH (21:00)
== END 2023-12-05 15:45 | disposition home or self-care (01) ==
LOC: M ED 20:44 → EDBD 20:44 → M ED INP 12-04 10:06 → M PCU 12-04 11:08
PROVIDERS: ADMIT Internal Medicine; ATTEND Internal Medicine
DX: R11.2 Nausea with vomiting, unspecified (principal); R07.9 Chest pain, unspecified; R06.82 Tachypnea, not elsewhere classified; R10.9 Unspecified abdominal pain; E87.20 Acidosis, unspecified; D72.828 Other elevated white blood cell count; C34.90 Malignant neoplasm of unspecified part of unspecified bronchus or lung; I10 Essential (primary) hypertension; E78.5 Hyperlipidemia, unspecified; J44.9 Chronic obstructive pulmonary disease, unspecified; I73.9 Peripheral vascular disease, unspecified; I73.1 Thromboangiitis obliterans [Buerger's disease]; Z89.512 Acquired absence of left leg below knee; F32.A Depression, unspecified; Z91.51 Personal history of suicidal behavior; G62.9 Polyneuropathy, unspecified; Z87.19 Personal history of other diseases of the digestive system; Z90.49 Acquired absence of other specified parts of digestive tract; Z98.890 Other specified postprocedural states; E46 Unspecified protein-calorie malnutrition; R64 Cachexia; N40.0 Benign prostatic hyperplasia without lower urinary tract symptoms; K21.9 Gastro-esophageal reflux disease without esophagitis; K59.00 Constipation, unspecified; K31.89 Other diseases of stomach and duodenum; K57.90 Diverticulosis of intestine, part unspecified, without perforation or abscess without bleeding; D35.02 Benign neoplasm of left adrenal gland; Z87.891 Personal history of nicotine dependence; F10.11 Alcohol abuse, in remission; Z88.0 Allergy status to penicillin; Z88.8 Allergy status to other drugs, medicaments and biological substances; Z79.899 Other long term (current) drug therapy; Z79.01 Long term (current) use of anticoagulants
CPT/HCPCS: 36415; 71260; 74177; 80048; 80053; 80076; 80143; 80307; 82010; 82077; 82803; 83605; 83690; 83735; 83880; 83930; 84145; 84484; 85025; 85652; 86140; 93005; 93041; 94640; 96361; 96374; 96375; 96376; 97161; 99285; G0378; J2405; J2470; J2765; Q9967

== ENCOUNTER 2023-12-09 21:08 | Inpatient (IN) | payer MEDICAID, MEDICARE, OTHER ==
[~2023-12-09] VITALS: Ht 182.9 cm; Wt 53.7 kg
[~2023-12-09 21:08] MED LIST changes: +MIRA33506 PO
[2023-12-09] MEDS: CHARCOAL ACTIVATED LIQUID 25GM/120ML BTL PO ONE (21:50)
[2023-12-09 21:55] LABS: BASO % 0.3 % (0.0-1.0); EOS # 0.1 10^3/uL (0.0-0.5); EOS % 1.7 % (0.0-3.0); HEMOGLOBIN 9.3 g/dl (13.5-17.5); LYMPH # 1.1 10^3/uL (1.5-5.0); LYMPH % 16.6 % (24.0-44.0); MEAN CORPUSCULAR HEMOGLOBIN 22.5 pg (27.0-33.0); MEAN CORPUSCULAR VOLUME 75.1 fl (80.0-96.0); MONO # 0.8 10^3/uL (0.0-0.8); MONO % 11.6 % (2.0-8.0); NEUTROPHILS # 4.6 10^3/uL (1.5-8.5); NEUTROPHILS % 69.3 % (36.0-66.0); PLATELET COUNT, AUTOMATED 232 10^3/uL (150-450); RED BLOOD COUNT 4.13 10^6/uL (4.30-6.10); WHITE BLOOD COUNT 6.6 10^3/uL (4.0-10.0)
[2023-12-09 22:10] LABS: INR 1.84; PROTHROMBIN TIME 20.6 SECONDS (12.5-14.5)
[2023-12-09 22:28] LABS: ETHYL ALCOHOL (ETHANOL) < 0.003 % (0.000-0.010); SALICYLATE LEVEL < 3.0 MG/DL (<30)
[2023-12-09 22:29] LABS: ALBUMIN 3.1 G/DL (3.2-5.2); ALKALINE PHOSPHATASE 71 U/L (46-116); ALT/SGPT 12 U/L (7.0-40); AST/SGOT 17 U/L (<34); BILIRUBIN,DIRECT 0.1 MG/DL (<0.4); BILIRUBIN,TOTAL 0.3 MG/DL (0.3-1.2); BLOOD UREA NITROGEN 8 MG/DL (9-23); CALCIUM LEVEL 9.4 MG/DL (8.3-10.6); CARBON DIOXIDE LEVEL 28 MMOL/L (20-31); CHLORIDE LEVEL 109 MMOL/L (98-107); CREATININE FOR GFR 0.61 MG/DL (0.70-1.30); GLOMERULAR FILTRATION RATE > 60.0 (>49); GLUCOSE, FASTING 118 MG/DL (74-106); POTASSIUM SERUM 3.8 MMOL/L (3.5-5.1); SODIUM LEVEL 143 MMOL/L (136-145); TOTAL PROTEIN 6.4 G/DL (5.7-8.2)
[2023-12-09 22:31] LABS: THYROID STIMULATING HORMONE 1.925 uIU/ML (0.55-4.78)
[2023-12-09 22:36] LABS: CPK CREATINE PHOSPHOKINASE 61 U/L (46-171)
[2023-12-10 03:43] LABS: AMPHETAMINES LEVEL URINE NEGATIVE (NEGATIVE); BARBITURATES URINE NEGATIVE (NEGATIVE); COCAINE METABOLITE URINE NEGATIVE (NEGATIVE); METHADONE URINE NEGATIVE (NEGATIVE); OPIATES URINE NEGATIVE (NEGATIVE)
[2023-12-10 03:44] LABS: PHENCYCLIDINE URINE NEGATIVE (NEGATIVE)
[2023-12-10 03:59] LABS: BENZODIAZEPINES URINE POSITIVE (NEGATIVE); CANNABINOIDS URINE POSITIVE (NEGATIVE)
[2023-12-10] MEDS ORDERED: FAMO1TAB11 PO (08:24)
[2023-12-10] MEDS ORDERED: ALBUTEROL 90 MCG/ACT 8GM HFA INHALER INH PRN (08:55)
[2023-12-10] MEDS ORDERED: SENNA 8.6 MG TAB (SENOKOT) PO PRN (08:55)
[2023-12-10] MEDS ORDERED: HOME MED LIST COMPLETE! XX SCH (09:05)
[2023-12-10] MEDS: FAMOTIDINE 20 MG TAB PO SCH (09:35)
[2023-12-10] MEDS: MULTIVITAMINS/MINERALS THERAP 1 TAB PO SCH (09:35)
[2023-12-10] MEDS: FINASTERIDE 5MG TAB PO SCH (09:35)
[2023-12-10] MEDS: SERTRALINE HCL 50 MG TAB PO SCH (09:35)
[2023-12-10] MEDS: ONDANSETRON 4MG ORAL DISINTEGRATING TAB PO PRN (09:35)
[2023-12-10] MEDS: OMEPRAZOLE 20MG CAP PO SCH (09:36)
[2023-12-10] MEDS ORDERED: MAALOX 30 ML SUSP *UDC PO PRN (10:35)
[2023-12-10] MEDS ORDERED: MOM 30ML SUSPENSION UDC PO PRN (10:35)
[2023-12-10] MEDS ORDERED: ACETAMINOPHEN TAB 650MG DOSE (2X325MG) PO PRN (10:35)
[2023-12-10 11:15] VITALS: BP 140/82; TEMP 97.4; O2SAT 98
[2023-12-10] MEDS: NICOTINE 7 MG/24 HR TRANSDERMAL TD SCH (13:43)
[2023-12-10] MEDS ORDERED: RIVAROXABAN 20MG TAB (XARELTO) PO SCH (18:00)
[2023-12-10] MEDS ORDERED: SIMVASTATIN 10 MG TAB PO SCH (21:00)
[2023-12-10] MEDS: diphenhydrAMINE 25MG CAP PO PRN (21:10)
[2023-12-11 06:49] VITALS: BP 134/65; TEMP 97.8; O2SAT 97
[2023-12-11] MEDS ORDERED: TIOTROPIUM INHALER/CAPSULE (SPIRIVA) INH SCH (08:00)
[2023-12-11] MEDS: FLUBLOK(EGGFREE) TRIVAL(24-25) VACCINE PF 0.5ML SYRINGE 18YRS & OLDER IM.IMMUN ONE (09:24)
[2023-12-11] MEDS: TIOTROPIUM INHALER/CAPSULE (SPIRIVA) INH SCH (13:06)
[2023-12-11] MEDS: SERTRALINE HCL 25 MG TABLET PO SCH (13:07)
[2023-12-11] MEDS: FINASTERIDE 5MG TAB PO SCH (13:24)
[2023-12-11 15:35] VITALS: BP 140/75; TEMP 99; O2SAT 98
[2023-12-11] MEDS: FAMOTIDINE 20 MG TAB PO SCH (20:37)
[2023-12-11] MEDS: OMEPRAZOLE 20MG CAP PO SCH (20:37)
[2023-12-11] MEDS: SIMVASTATIN 10 MG TAB PO SCH (20:37)
[2023-12-11] MEDS: traZODone 50 MG TAB PO PRN (20:38)
[2023-12-11] MEDS: MIRTAZAPINE 15 MG TAB PO SCH (20:38)
[2023-12-11] MEDS: RIVAROXABAN 20MG TAB (XARELTO) PO SCH (20:38)
[2023-12-12 05:57] VITALS: BP 134/63; TEMP 97.6; O2SAT 95
[2023-12-12 07:31] LABS: CHOLESTEROL RISK RATIO 2.81 (<5); HDL CHOLESTEROL 52.3 MG/DL (>40); LDL CHOLESTEROL 70.5 MG/DL (<100); NON-HDL-C 94.7 MG/DL
[2023-12-12] MEDS: ONDANSETRON 4MG ORAL DISINTEGRATING TAB SL PRN (08:19)
[2023-12-12] MEDS: ALBUTEROL SULFATE 2.5MG/0.5ML INH NEB SOLN INH PRN (10:51)
[2023-12-12 14:40] VITALS: BP 137/78
[2023-12-12] MEDS: FOLIC ACID 1MG TAB PO SCH (14:49)
[2023-12-12] MEDS: MULTIVITAMINS/MINERALS THERAP 1 TAB PO SCH (14:49)
[2023-12-12] MEDS: ALPRAZolam 0.25 MG TAB PO ONE (14:49)
[2023-12-12] MEDS: ALBUTEROL 90 MCG/ACT 8GM HFA INHALER INH PRN (14:49)
[2023-12-12 15:34] VITALS: BP 137/78; TEMP 98.6; O2SAT 99
[2023-12-12] MEDS: SENNA 8.6 MG TAB (SENOKOT) PO PRN (20:08)
[2023-12-12 20:16] VITALS: BP 142/85
[2023-12-12] MEDS: LORazepam 2 MG TAB PO PRN (20:37)
[2023-12-13 05:58] VITALS: BP 109/69; TEMP 97.3; O2SAT 95
[2023-12-13 08:00] VITALS: BP 109/69
[2023-12-13] MEDS: IBUPROFEN 800 MG TAB PO PRN (15:26)
[2023-12-13] MEDS: ALPRAZolam 0.25 MG TAB PO ONE (15:26)
[2023-12-13 15:51] VITALS: BP 128/70; TEMP 98; O2SAT 96
[2023-12-13 16:00] VITALS: BP 128/70
[2023-12-14] VITALS: BP 122/78
[2023-12-14 06:00] VITALS: BP 144/70; TEMP 97.3; O2SAT 97
[2023-12-14 15:50] VITALS: BP 137/76; TEMP 97.6; O2SAT 99
[2023-12-14] MEDS: clonazePAM 0.5 MG TAB PO PRN (16:14)
[2023-12-15 06:30] VITALS: BP 120/70; TEMP 97.4; O2SAT 96
[2023-12-15] MEDS: PILL CUTTER 1 EACH XX PRN (08:04)
[2023-12-15 17:14] VITALS: BP 136/70; TEMP 97.8
[2023-12-16 06:37] VITALS: BP 115/54; TEMP 97.3; O2SAT 97
[2023-12-16] MEDS: SERTRALINE HCL 50 MG TAB PO SCH (08:20)
[2023-12-16] MEDS: **PENDING PPD ENTRY XX SCH (09:00)
[2023-12-16] MEDS: PERCOCET 5MG/325MG TAB PO ONE (13:04)
[2023-12-16] MEDS ORDERED: TUBERCULIN PPD 5 UNITS/0.1 ML ID ONE (13:40)
[2023-12-16] MEDS ORDERED: ACETAMINOPHEN 325 MG TAB PO PRN (14:54)
[2023-12-16 15:11] VITALS: BP 147/80; TEMP 97.3; O2SAT 97
[2023-12-17 07:00] VITALS: BP 135/66; TEMP 97.7; O2SAT 96
[2023-12-17] MEDS: PERCOCET 5MG/325MG TAB PO PRN (08:09)
[2023-12-17 14:42] VITALS: BP 125/65; TEMP 97.2; O2SAT 99
[2023-12-18 06:16] VITALS: BP 122/70; TEMP 97.2; O2SAT 100
[2023-12-18] MEDS: TUBERCULIN PPD 5 UNITS/0.1 ML ID ONE (09:22)
[2023-12-18] MEDS ORDERED: PPD DOCUMENTATION ENTRY MISC XX SCH (10:00)
[2023-12-18 15:32] VITALS: BP 130/60; TEMP 97.6; O2SAT 97
[2023-12-18] MEDS: PERCOCET 5MG/325MG TAB PO SCH (16:25)
[2023-12-19 06:37] VITALS: BP 124/70; TEMP 98.1
[2023-12-19 15:17] VITALS: BP 120/65; TEMP 98.2; O2SAT 97
[2023-12-20 06:12] VITALS: BP 127/70; TEMP 97.7; O2SAT 96
[2023-12-20] MEDS: PPD DOCUMENTATION ENTRY MISC XX ONE (08:49)
[2023-12-20 16:28] VITALS: BP 126/68; TEMP 97.7; O2SAT 97
[2023-12-21 06:15] VITALS: BP 142/74; TEMP 97.9; O2SAT 96
[2023-12-21 14:55] VITALS: BP 125/59; TEMP 98.5; O2SAT 95
[2023-12-22 06:22] VITALS: BP 146/66; TEMP 98; O2SAT 97
[2023-12-22 16:50] VITALS: BP 126/66; TEMP 98.5
[2023-12-23 06:05] VITALS: BP 123/58; TEMP 97.6; O2SAT 98
[2023-12-23 15:24] VITALS: BP 128/74; TEMP 98.4; O2SAT 97
[2023-12-24 06:30] VITALS: BP 132/60; TEMP 98.1; O2SAT 95
[2023-12-24] MEDS: PERCOCET 5MG/325MG TAB PO ONE (10:02)
[2023-12-24 14:54] VITALS: BP 132/68; TEMP 98.5; O2SAT 97
[2023-12-25 06:05] VITALS: BP 138/73; TEMP 98.1; O2SAT 95
[2023-12-25 16:04] VITALS: BP 122/78; TEMP 98.6; O2SAT 97
[2023-12-26 06:27] VITALS: BP 145/71; TEMP 98.1; O2SAT 100
[2023-12-26 08:06] VITALS: BP 140/73; O2SAT 97
[2023-12-26 15:23] VITALS: BP 149/74; TEMP 98.3; O2SAT 97
[2023-12-27 06:38] VITALS: BP 138/75; TEMP 98.5; O2SAT 98
[2023-12-27 15:51] VITALS: BP 120/68; TEMP 98.9; O2SAT 97
[2023-12-28 06:09] VITALS: BP 142/74; TEMP 98.1; O2SAT 94
[2023-12-28] MEDS ORDERED: Pill Cutter XX (10:35)
[2023-12-28] MEDS ORDERED: DIPH-435 PO (10:35)
[2023-12-28] MEDS ORDERED: MULT-40 PO (10:35)
[2023-12-28] MEDS ORDERED: SENN8.6T28 PO (10:35)
[2023-12-28] MEDS ORDERED: ONDA-284 SL (10:35)
[2023-12-28] MEDS ORDERED: FAMO1TAB11 PO (10:35)
[2023-12-28] MEDS ORDERED: MIRT-88 PO (10:35)
[2023-12-28] MEDS ORDERED: NICO7PA TD (10:35)
[2023-12-28] MEDS ORDERED: OMEP1CAP73 PO (10:35)
[2023-12-28] MEDS ORDERED: FOLI1TAB11 PO (10:35)
[2023-12-28] MEDS ORDERED: CLON0.5T2 PO (10:35)
[2023-12-28] MEDS ORDERED: PERCOCET PO (10:35)
== END 2023-12-28 12:28 | disposition home or self-care (01) | DRG 881 ==
LOC: M ED 21:08 → M ED INP 12-10 10:31 → M PSY 12-10 11:30
PROVIDERS: ADMIT Psychiatry & Neurology Psychiatry; ATTEND Psychiatry & Neurology Psychiatry
DX: F32.9 Major depressive disorder, single episode, unspecified (principal); R45.851 Suicidal ideations; C34.31 Malignant neoplasm of lower lobe, right bronchus or lung; Z59.10 Inadequate housing, unspecified; J44.9 Chronic obstructive pulmonary disease, unspecified; I73.9 Peripheral vascular disease, unspecified; I10 Essential (primary) hypertension; F41.9 Anxiety disorder, unspecified; J43.9 Emphysema, unspecified; G54.6 Phantom limb syndrome with pain; K21.9 Gastro-esophageal reflux disease without esophagitis; T43.022A Poisoning by tetracyclic antidepressants, intentional self-harm, initial encounter; E78.5 Hyperlipidemia, unspecified; N40.0 Benign prostatic hyperplasia without lower urinary tract symptoms; F17.200 Nicotine dependence, unspecified, uncomplicated; F10.20 Alcohol dependence, uncomplicated; G89.29 Other chronic pain; Z79.01 Long term (current) use of anticoagulants; Z79.899 Other long term (current) drug therapy; Z88.0 Allergy status to penicillin; Z88.6 Allergy status to analgesic agent; Z90.49 Acquired absence of other specified parts of digestive tract; Z91.51 Personal history of suicidal behavior

== ENCOUNTER 2024-01-09 18:56 | Inpatient (IN) | payer MEDICARE, OTHER ==
[~2024-01-09] VITALS: Ht 182.9 cm; Wt 53.6 kg
[~2024-01-09 18:56] MED LIST changes: +BUDE90AE INH; +CLON0.5T2 PO; +DIPH-435 PO; +FOLI1TAB11 PO; -LEVO750T14 PO; +LEVO75TAB PO; +NICO7PA TD; -PULM90IN INH; +Pill Cutter XX
[2024-01-09 20:43] LABS: BASO % 0.2 % (0.0-1.0); EOS # 0.1 10^3/uL (0.0-0.5); EOS % 1.2 % (0.0-3.0); HEMATOCRIT 31.1 % (42.0-52.0); HEMOGLOBIN 9.7 g/dl (13.5-17.5); LYMPH # 1.3 10^3/uL (1.5-5.0); LYMPH % 11.8 % (24.0-44.0); MEAN CORPUSCULAR HEMOGLOBIN 22.3 pg (27.0-33.0); MEAN CORPUSCULAR HGB CONC 31.2 g/dl (32.0-36.5); MEAN CORPUSCULAR VOLUME 71.5 fl (80.0-96.0); MONO % 8.9 % (2.0-8.0); NEUTROPHILS # 8.4 10^3/uL (1.5-8.5); NEUTROPHILS % 77.3 % (36.0-66.0); PLATELET COUNT, AUTOMATED 259 10^3/uL (150-450); RED BLOOD COUNT 4.35 10^6/uL (4.30-6.10); WHITE BLOOD COUNT 10.8 10^3/uL (4.0-10.0)
[2024-01-09 20:55] LABS: INR 1.76; PARTIAL THROMBOPLASTIN TIME 47.7 SECONDS (24.8-34.2); PROTHROMBIN TIME 20.7 SECONDS (12.5-14.5)
[2024-01-09 21:16] LABS: CK-MB VALUE MASS < 1.0 NG/ML (<3.6); ETHYL ALCOHOL (ETHANOL) < 0.003 % (0.000-0.010)
[2024-01-09 21:17] LABS: SALICYLATE LEVEL < 3.0 MG/DL (<30)
[2024-01-09 21:18] LABS: ALBUMIN 3.4 G/DL (3.2-5.2); ALKALINE PHOSPHATASE 84 U/L (40-129); ALT/SGPT 19 U/L (7.0-40); AST/SGOT 14 U/L (<34); BILIRUBIN,DIRECT < 0.1 MG/DL (<0.4); BILIRUBIN,TOTAL 0.2 MG/DL (0.3-1.2); BLOOD UREA NITROGEN 10 MG/DL (9-23); CALCIUM LEVEL 9.1 MG/DL (8.3-10.6); CARBON DIOXIDE LEVEL 25 MMOL/L (20-31); CHLORIDE LEVEL 108 MMOL/L (98-107); CREATININE FOR GFR 0.63 MG/DL (0.70-1.30); GLOMERULAR FILTRATION RATE > 60.0 (>49); GLUCOSE, FASTING 90 MG/DL (74-106); POTASSIUM SERUM 4.3 MMOL/L (3.5-5.1); SODIUM LEVEL 139 MMOL/L (136-145); TOTAL PROTEIN 7.2 G/DL (5.7-8.2)
[2024-01-09 21:20] LABS: THYROID STIMULATING HORMONE 0.861 uIU/ML (0.55-4.78)
[2024-01-09 21:26] LABS: CPK CREATINE PHOSPHOKINASE 53 U/L (46-171); MB/CK RELATIVE INDEX 1.88 (< OR =4)
[2024-01-09 22:04] LABS: CK-MB VALUE MASS < 1.0 NG/ML (<3.6)
[2024-01-09 22:06] LABS: CPK CREATINE PHOSPHOKINASE 52 U/L (46-171); MB/CK RELATIVE INDEX 1.92 (< OR =4)
[2024-01-09 22:11] LABS: AMPHETAMINES LEVEL URINE NEGATIVE (NEGATIVE); BARBITURATES URINE NEGATIVE (NEGATIVE); BENZODIAZEPINES URINE NEGATIVE (NEGATIVE); COCAINE METABOLITE URINE NEGATIVE (NEGATIVE); METHADONE URINE NEGATIVE (NEGATIVE); OPIATES URINE NEGATIVE (NEGATIVE); PHENCYCLIDINE URINE NEGATIVE (NEGATIVE)
[2024-01-09 22:18] LABS: CANNABINOIDS URINE POSITIVE (NEGATIVE)
[2024-01-09] MEDS ORDERED: FOLI1TAB11 PO (22:27)
[2024-01-09] MEDS ORDERED: THERTAB52 PO (22:27)
[2024-01-09] MEDS ORDERED: ONDA-284 PO (22:27)
[2024-01-09] MEDS ORDERED: OXYC1TAB23 PO (22:27)
[2024-01-09] MEDS ORDERED: FAMO20TA PO (22:27)
[2024-01-09] MEDS ORDERED: VENTAER INH (22:27)
[2024-01-09] MEDS ORDERED: SERT-141 PO (22:27)
[2024-01-09] MEDS ORDERED: DIPH-435 PO (22:27)
[2024-01-09] MEDS ORDERED: CLON0.5T2 PO (22:27)
[2024-01-09] MEDS ORDERED: HOME MED LIST COMPLETE! XX SCH (22:30)
[2024-01-10 00:19] LABS: CK-MB VALUE MASS < 1.0 NG/ML (<3.6)
[2024-01-10 00:29] LABS: CPK CREATINE PHOSPHOKINASE 54 U/L (46-171); MB/CK RELATIVE INDEX 1.85 (< OR =4)
[2024-01-10] MEDS ORDERED: MAALOX 30 ML SUSP *UDC PO PRN (00:50)
[2024-01-10] MEDS ORDERED: ACETAMINOPHEN 325 MG TAB PO PRN (00:50)
[2024-01-10] MEDS: FAMOTIDINE 20 MG TAB PO SCH (01:26)
[2024-01-10] MEDS: MIRTAZAPINE 15 MG TAB PO SCH (01:26)
[2024-01-10] MEDS: FOLIC ACID 1MG TAB PO SCH (08:11)
[2024-01-10] MEDS: OMEPRAZOLE 20MG CAP PO SCH (08:11)
[2024-01-10] MEDS: FINASTERIDE 5MG TAB PO SCH (08:12)
[2024-01-10] MEDS: SERTRALINE HCL 50 MG TAB PO SCH (08:12)
[2024-01-10] MEDS: ALBUTEROL 90 MCG/ACT 8GM HFA INHALER INH PRN (10:23)
[2024-01-10 10:50] VITALS: BP 140/89; TEMP 97.2; O2SAT 99
[2024-01-10] MEDS: PERCOCET 5MG/325MG TAB PO PRN (11:23)
[2024-01-10 16:23] VITALS: BP 138/74; TEMP 98; O2SAT 96
[2024-01-10] MEDS: RIVAROXABAN 20MG TAB (XARELTO) PO SCH (17:21)
[2024-01-10] MEDS: SIMVASTATIN 10 MG TAB PO SCH (22:03)
[2024-01-10] MEDS: traZODone 50 MG TAB PO PRN (22:03)
[2024-01-11 06:34] VITALS: BP 126/62; TEMP 97.1; O2SAT 97
[2024-01-11] MEDS ORDERED: ALBUTEROL SULFATE 2.5MG/0.5ML INH NEB SOLN NEB PRN (07:55)
[2024-01-11] MEDS ORDERED: ONDANSETRON 4MG ORAL DISINTEGRATING TAB PO PRN (08:50)
[2024-01-11] MEDS: TIOTROPIUM INHALER/CAPSULE (SPIRIVA) INH SCH (09:12)
[2024-01-11 15:28] VITALS: BP 163/81; TEMP 98.1; O2SAT 98
[2024-01-11] MEDS: diphenhydrAMINE 25MG CAP PO PRN (20:07)
[2024-01-11] MEDS: clonazePAM 0.5 MG TAB PO PRN (20:08)
[2024-01-12 06:39] VITALS: BP 121/74; TEMP 97.8; O2SAT 99
[2024-01-12] MEDS: ALBUTEROL SULFATE 2.5MG/0.5ML INH NEB SOLN NEB PRN (08:18)
[2024-01-12] MEDS: MOM 30ML SUSPENSION UDC PO PRN (09:56)
[2024-01-12] MEDS ORDERED: SENNA 8.6 MG TAB (SENOKOT) PO PRN (12:55)
[2024-01-12 14:57] VITALS: BP 148/70; TEMP 98; O2SAT 98
[2024-01-13 06:25] VITALS: BP 128/72; TEMP 97.6; O2SAT 94
[2024-01-13 14:00] VITALS: BP 123/76; TEMP 97.6; O2SAT 98
[2024-01-14 06:34] VITALS: BP 119/70; TEMP 97.9; O2SAT 95
[2024-01-14] MEDS ORDERED: SERT-141 PO (07:39)
[2024-01-14] MEDS ORDERED: CLON0.5T2 PO (07:39)
[2024-01-14] MEDS ORDERED: OXYC1TAB23 PO (07:39)
[2024-01-14] MEDS ORDERED: VENTAER INH (07:39)
[2024-01-14] MEDS ORDERED: ONDA-284 PO (07:39)
[2024-01-14] MEDS ORDERED: FAMO20TA PO (07:39)
[2024-01-14] MEDS ORDERED: SENO8.6T5 PO (07:39)
[2024-01-14] MEDS ORDERED: DIPH-435 PO (07:39)
[2024-01-14] MEDS ORDERED: THERTAB52 PO (07:39)
== END 2024-01-14 11:34 | disposition home or self-care (01) | DRG 885 ==
LOC: EDBD 18:56 → M ED 18:56 → M ED INP 01-10 00:46 → M PSY 01-10 11:08
PROVIDERS: ADMIT Psychiatry & Neurology Psychiatry; ATTEND Psychiatry & Neurology Psychiatry
DX: F33.9 Major depressive disorder, recurrent, unspecified (principal); R45.851 Suicidal ideations; C34.31 Malignant neoplasm of lower lobe, right bronchus or lung; Z59.19 Other inadequate housing; I73.1 Thromboangiitis obliterans [Buerger's disease]; F17.200 Nicotine dependence, unspecified, uncomplicated; K21.9 Gastro-esophageal reflux disease without esophagitis; F10.20 Alcohol dependence, uncomplicated; J44.9 Chronic obstructive pulmonary disease, unspecified; E78.5 Hyperlipidemia, unspecified; N40.0 Benign prostatic hyperplasia without lower urinary tract symptoms; G89.29 Other chronic pain; Z89.512 Acquired absence of left leg below knee; Z79.01 Long term (current) use of anticoagulants; Z79.899 Other long term (current) drug therapy; Z88.0 Allergy status to penicillin; Z88.6 Allergy status to analgesic agent; Z91.51 Personal history of suicidal behavior; Z76.5 Malingerer [conscious simulation]

== ENCOUNTER 2024-01-27 12:57 | Inpatient (IN) | payer MEDICARE ==
[~2024-01-27] VITALS: Ht 182.9 cm; Wt 55.0 kg
[~2024-01-27 12:57] MED LIST changes: +FAMO20TA PO; +OXYC1TAB23 PO; +SENO8.6T5 PO; +SERT-141 PO; +THERTAB52 PO; +VENTAER INH
[2024-01-27 13:54] LABS: BASO % 0.4 % (0.0-1.0); EOS # 0.1 10^3/uL (0.0-0.5); EOS % 1.2 % (0.0-3.0); LYMPH # 1.3 10^3/uL (1.5-5.0); LYMPH % 15.9 % (24.0-44.0); MEAN CORPUSCULAR HEMOGLOBIN 21.9 pg (27.0-33.0); MEAN CORPUSCULAR HGB CONC 30.3 g/dl (32.0-36.5); MEAN CORPUSCULAR VOLUME 72.2 fl (80.0-96.0); MONO # 0.6 10^3/uL (0.0-0.8); MONO % 6.6 % (2.0-8.0); NEUTROPHILS # 6.3 10^3/uL (1.5-8.5); NEUTROPHILS % 75.5 % (36.0-66.0); PLATELET COUNT, AUTOMATED 418 10^3/uL (150-450); RED BLOOD COUNT 4.57 10^6/uL (4.30-6.10); WHITE BLOOD COUNT 8.4 10^3/uL (4.0-10.0)
[2024-01-27 14:22] LABS: ETHYL ALCOHOL (ETHANOL) 0.191 % (0.000-0.010)
[2024-01-27 14:23] LABS: SALICYLATE LEVEL 9.8 MG/DL (<30)
[2024-01-27 14:24] LABS: ALKALINE PHOSPHATASE 95 U/L (40-129); ALT/SGPT < 9 U/L (7.0-40); AST/SGOT 20 U/L (<34); BILIRUBIN,DIRECT < 0.1 MG/DL (<0.4); BILIRUBIN,TOTAL < 0.2 MG/DL (0.3-1.2); BLOOD UREA NITROGEN 9 MG/DL (9-23); CALCIUM LEVEL 8.9 MG/DL (8.3-10.6); CARBON DIOXIDE LEVEL 26 MMOL/L (20-31); CHLORIDE LEVEL 107 MMOL/L (98-107); CREATININE FOR GFR 0.62 MG/DL (0.70-1.30); GLOMERULAR FILTRATION RATE > 60.0 (>49); GLUCOSE, FASTING 88 MG/DL (74-106); POTASSIUM SERUM 4.7 MMOL/L (3.5-5.1); SODIUM LEVEL 142 MMOL/L (136-145); TOTAL PROTEIN 7.4 G/DL (5.7-8.2)
[2024-01-27 14:27] LABS: THYROID STIMULATING HORMONE 0.222 uIU/ML (0.55-4.78)
[2024-01-27 14:33] LABS: CPK CREATINE PHOSPHOKINASE 52 U/L (46-171)
[2024-01-27] MEDS ORDERED: OVERDOSE RESCUE KIT XX SCH (14:40)
[2024-01-27 17:05] LABS: AMPHETAMINES LEVEL URINE NEGATIVE (NEGATIVE); BARBITURATES URINE NEGATIVE (NEGATIVE); BENZODIAZEPINES URINE NEGATIVE (NEGATIVE); CANNABINOIDS URINE NEGATIVE (NEGATIVE); COCAINE METABOLITE URINE NEGATIVE (NEGATIVE); METHADONE URINE NEGATIVE (NEGATIVE); OPIATES URINE NEGATIVE (NEGATIVE); PHENCYCLIDINE URINE NEGATIVE (NEGATIVE)
[2024-01-27] MEDS ORDERED: CLOP75TA2 PO (19:04)
[2024-01-27] MEDS ORDERED: HOME MED LIST COMPLETE! XX SCH (19:05)
[2024-01-27] MEDS: ALBUTEROL 90 MCG/ACT 8GM HFA INHALER INH ONE (21:09)
[2024-01-27] MEDS ORDERED: ACETAMINOPHEN 325 MG TAB PO PRN (21:35)
[2024-01-27] MEDS ORDERED: MAALOX 30 ML SUSP *UDC PO PRN (21:35)
[2024-01-27 22:31] VITALS: BP 160/80; TEMP 97.6; O2SAT 95
[2024-01-27] MEDS ORDERED: ALBUTEROL SULFATE 2.5MG/0.5ML INH NEB SOLN INH PRN (23:30)
[2024-01-27] MEDS: RIVAROXABAN 20MG TAB (XARELTO) PO SCH (23:56)
[2024-01-27] MEDS: SIMVASTATIN 10 MG TAB PO SCH (23:56)
[2024-01-27] MEDS: PERCOCET 5MG/325MG TAB PO PRN (23:56)
[2024-01-27] MEDS: FAMOTIDINE 20 MG TAB PO SCH (23:56)
[2024-01-28 06:26] VITALS: BP 131/63; TEMP 98; O2SAT 97
[2024-01-28] MEDS: FINASTERIDE 5MG TAB PO SCH (08:25)
[2024-01-28] MEDS: OMEPRAZOLE 20MG CAP PO SCH (08:25)
[2024-01-28] MEDS: TIOTROPIUM INHALER/CAPSULE (SPIRIVA) INH SCH (08:25)
[2024-01-28] MEDS: FOLIC ACID 1MG TAB PO SCH (08:25)
[2024-01-28] MEDS: CLOPIDOGREL 75 MG TAB PO SCH (08:25)
[2024-01-28] MEDS ORDERED: ONDANSETRON 4MG ORAL DISINTEGRATING TAB PO PRN (11:30)
[2024-01-28] MEDS: MULTIVITAMINS/MINERALS THERAP 1 TAB PO SCH (12:02)
[2024-01-28] MEDS: ALBUTEROL 90 MCG/ACT 8GM HFA INHALER INH PRN (12:07)
[2024-01-28] MEDS: ALBUTEROL SULFATE 2.5MG/0.5ML INH NEB SOLN NEB PRN (14:26)
[2024-01-28] MEDS: clonazePAM 0.5 MG TAB PO PRN (14:47)
[2024-01-28 17:09] VITALS: BP 141/66; TEMP 97.7; O2SAT 96
[2024-01-28] MEDS: MIRTAZAPINE 15 MG TAB PO SCH (20:41)
[2024-01-28] MEDS: diphenhydrAMINE 25MG CAP PO PRN (20:46)
[2024-01-28] MEDS: traZODone 50 MG TAB PO PRN (20:46)
[2024-01-29 06:28] VITALS: BP 135/60; TEMP 97.1; O2SAT 94
[2024-01-29] MEDS: SERTRALINE HCL 50 MG TAB PO SCH (08:28)
[2024-01-29 15:19] VITALS: BP 124/67; TEMP 97.9; O2SAT 95
[2024-01-29] MEDS: PERCOCET 5MG/325MG TAB PO ONE (18:17)
[2024-01-30 06:13] VITALS: BP 171/69; TEMP 97.4; O2SAT 97
[2024-01-30] MEDS: ALBUTEROL SULFATE 2.5MG/0.5ML INH NEB SOLN NEB SCH (07:00)
[2024-01-30] MEDS: MOM 30ML SUSPENSION UDC PO PRN (11:32)
[2024-01-30 15:31] VITALS: BP 107/55; TEMP 97.7; O2SAT 90
[2024-01-31 06:19] VITALS: BP 171/77; TEMP 97.2; O2SAT 95
[2024-01-31] MEDS: SENOKOT S TAB PO PRN (08:35)
[2024-01-31] MEDS: clonazePAM 0.5 MG TAB PO PRN (12:08)
[2024-01-31] MEDS: PILL CUTTER 1 EACH XX PRN (12:09)
[2024-01-31 15:08] VITALS: BP 129/62; TEMP 98.6; O2SAT 99
[2024-01-31] MEDS: PERCOCET 5MG/325MG TAB PO PRN (20:07)
[2024-02-01 06:18] VITALS: BP 102/58; TEMP 97.6; O2SAT 97
[2024-02-01 09:09] VITALS: BP 102/58; TEMP 97.6; O2SAT 97
== END 2024-02-01 11:07 | disposition home or self-care (01) | DRG 885 ==
LOC: M ED 12:57 → EDBD 12:57 → M ED INP 21:31 → M PSY 22:29
PROVIDERS: ADMIT Psychiatry & Neurology Psychiatry; ATTEND Psychiatry & Neurology Psychiatry
DX: F33.9 Major depressive disorder, recurrent, unspecified (principal); F10.14 Alcohol abuse with alcohol-induced mood disorder; C34.31 Malignant neoplasm of lower lobe, right bronchus or lung; E46 Unspecified protein-calorie malnutrition; R64 Cachexia; F12.10 Cannabis abuse, uncomplicated; Z91.51 Personal history of suicidal behavior; J44.9 Chronic obstructive pulmonary disease, unspecified; K21.9 Gastro-esophageal reflux disease without esophagitis; N40.0 Benign prostatic hyperplasia without lower urinary tract symptoms; D64.9 Anemia, unspecified; F17.200 Nicotine dependence, unspecified, uncomplicated; T43.022A Poisoning by tetracyclic antidepressants, intentional self-harm, initial encounter; I73.1 Thromboangiitis obliterans [Buerger's disease]; G89.3 Neoplasm related pain (acute) (chronic); Z89.512 Acquired absence of left leg below knee; Z79.01 Long term (current) use of anticoagulants; Z79.899 Other long term (current) drug therapy; Z88.0 Allergy status to penicillin; Z88.6 Allergy status to analgesic agent; Z79.02 Long term (current) use of antithrombotics/antiplatelets

== ENCOUNTER 2024-02-24 19:31 | Inpatient (IN) | payer MEDICARE, MEDICAID ==
[~2024-02-24] VITALS: Ht 182.9 cm; Wt 59.4 kg
[~2024-02-24 19:31] MED LIST changes: +CLOP75TA2 PO; +GUAI10ELDM PO; -GUAI10LI PO
[2024-02-24 20:18] LABS: BASO % 0.5 % (0.0-1.0); EOS # 0.2 10^3/uL (0.0-0.5); EOS % 2.3 % (0.0-3.0); HEMATOCRIT 32.9 % (42.0-52.0); HEMOGLOBIN 9.9 g/dl (13.5-17.5); LYMPH # 1.2 10^3/uL (1.5-5.0); LYMPH % 18.2 % (24.0-44.0); MEAN CORPUSCULAR HEMOGLOBIN 22.1 pg (27.0-33.0); MEAN CORPUSCULAR HGB CONC 30.1 g/dl (32.0-36.5); MEAN CORPUSCULAR VOLUME 73.6 fl (80.0-96.0); MONO # 0.4 10^3/uL (0.0-0.8); MONO % 5.5 % (2.0-8.0); NEUTROPHILS # 4.7 10^3/uL (1.5-8.5); PLATELET COUNT, AUTOMATED 324 10^3/uL (150-450); RED BLOOD COUNT 4.47 10^6/uL (4.30-6.10); WHITE BLOOD COUNT 6.5 10^3/uL (4.0-10.0)
[2024-02-24 20:44] LABS: ETHYL ALCOHOL (ETHANOL) 0.126 % (0.000-0.010)
[2024-02-24 20:46] LABS: CPK CREATINE PHOSPHOKINASE 60 U/L (46-171); SALICYLATE LEVEL < 3.0 MG/DL (<30)
[2024-02-24 20:47] LABS: ALBUMIN 3.6 G/DL (3.2-5.2); ALKALINE PHOSPHATASE 66 U/L (40-129); ALT/SGPT < 9 U/L (7.0-40); AST/SGOT 11 U/L (<34); BILIRUBIN,DIRECT < 0.1 MG/DL (<0.4); BILIRUBIN,TOTAL 0.2 MG/DL (0.3-1.2); BLOOD UREA NITROGEN 10 MG/DL (9-23); CARBON DIOXIDE LEVEL 25 MMOL/L (20-31); CHLORIDE LEVEL 110 MMOL/L (98-107); CREATININE FOR GFR 0.72 MG/DL (0.70-1.30); GLOMERULAR FILTRATION RATE > 60.0 (>49); GLUCOSE, FASTING 102 MG/DL (74-106); POTASSIUM SERUM 3.8 MMOL/L (3.5-5.1); SODIUM LEVEL 143 MMOL/L (136-145); TOTAL PROTEIN 7.1 G/DL (5.7-8.2)
[2024-02-24 20:48] LABS: THYROID STIMULATING HORMONE 0.582 uIU/ML (0.55-4.78)
[2024-02-24] MEDS: NS (Normal Saline) 0.9% 1,000 ML IV ONE (21:33)
[2024-02-25 00:52] LABS: METHADONE URINE NEGATIVE (NEGATIVE); OPIATES URINE NEGATIVE (NEGATIVE)
[2024-02-25 00:53] LABS: AMPHETAMINES LEVEL URINE NEGATIVE (NEGATIVE); BARBITURATES URINE NEGATIVE (NEGATIVE); BENZODIAZEPINES URINE NEGATIVE (NEGATIVE); COCAINE METABOLITE URINE NEGATIVE (NEGATIVE); PHENCYCLIDINE URINE NEGATIVE (NEGATIVE)
[2024-02-25 00:59] LABS: CANNABINOIDS URINE POSITIVE (NEGATIVE)
[2024-02-25] MEDS ORDERED: OLANZapine ORAL DISINTEGRATING TAB 5MG PO PRN (03:35)
[2024-02-25] MEDS ORDERED: diphenhydrAMINE 25MG CAP PO PRN (03:35)
[2024-02-25] MEDS ORDERED: ACETAMINOPHEN 325 MG TAB PO PRN (03:35)
[2024-02-25] MEDS ORDERED: MOM 30ML SUSPENSION UDC PO PRN (03:35)
[2024-02-25] MEDS ORDERED: MAALOX 30 ML SUSP *UDC PO PRN (03:35)
[2024-02-25 06:21] VITALS: BP 119/64; TEMP 96.7; O2SAT 96
[2024-02-25] MEDS: NICOTINE 14 MG/24 HR TRANSDERMAL TD SCH (09:04)
[2024-02-25] MEDS ORDERED: SENO8.6T5 PO (10:23)
[2024-02-25] MEDS ORDERED: VENTAER INH (10:23)
[2024-02-25] MEDS ORDERED: ONDA-284 PO (10:23)
[2024-02-25] MEDS ORDERED: POLY17PO18 PO (10:23)
[2024-02-25] MEDS ORDERED: MIRT-10 PO (10:23)
[2024-02-25] MEDS ORDERED: CLON0.5T2 PO (10:23)
[2024-02-25] MEDS ORDERED: HOME MED LIST COMPLETE! XX SCH (10:25)
[2024-02-25] MEDS: TIOTROPIUM INHALER/CAPSULE (SPIRIVA) INH SCH (10:42)
[2024-02-25] MEDS: CLOPIDOGREL 75 MG TAB PO SCH (10:42)
[2024-02-25] MEDS ORDERED: MIRALAX *UNIT DOSE* 17GM PACKET PO PRN (11:15)
[2024-02-25] MEDS ORDERED: SENOKOT S TAB PO PRN (11:15)
[2024-02-25] MEDS: FOLIC ACID 1MG TAB PO SCH (11:40)
[2024-02-25] MEDS: ALBUTEROL 90 MCG/ACT 8GM HFA INHALER INH SCH (11:40)
[2024-02-25] MEDS: FINASTERIDE 5MG TAB PO SCH (12:25)
[2024-02-25] MEDS: PANTOPRAZOLE 20 MG TAB PO SCH (12:25)
[2024-02-25] MEDS ORDERED: ALBUTEROL SULFATE 2.5MG/0.5ML INH NEB SOLN NEB PRN (13:05)
[2024-02-25] MEDS ORDERED: SYMBICORT 80/4.5MCG INHALER 6GM INH SCH (13:05)
[2024-02-25] MEDS: ALBUTEROL SULFATE 2.5MG/0.5ML INH NEB SOLN NEB SCH (13:18)
[2024-02-25] MEDS: predniSONE 20 MG TAB PO SCH (14:44)
[2024-02-25] MEDS: SYMBICORT 160/4.5MCG INHALER 6GM INH SCH (14:55)
[2024-02-25 16:01] VITALS: BP 134/71; TEMP 97.8; O2SAT 95
[2024-02-25] MEDS: RIVAROXABAN 20MG TAB (XARELTO) PO SCH (17:13)
[2024-02-25] MEDS: oxyCODONE 5MG TAB PO PRN (17:32)
[2024-02-25] MEDS: FAMOTIDINE 20 MG TAB PO SCH (20:07)
[2024-02-25] MEDS: clonazePAM 0.5 MG TAB PO SCH (20:07)
[2024-02-25] MEDS: SIMVASTATIN 10 MG TAB PO SCH (20:07)
[2024-02-25] MEDS ORDERED: OMEPRAZOLE 20MG CAP PO SCH (21:00)
[2024-02-26 06:31] VITALS: BP 131/60; TEMP 96.7; O2SAT 96
[2024-02-26] MEDS ORDERED: predniSONE 20 MG TAB PO SCH (09:00)
[2024-02-26] MEDS: SERTRALINE HCL 25 MG TABLET PO SCH (09:11)
[2024-02-26] MEDS: OLANZapine 5 MG TAB PO SCH (09:11)
[2024-02-26 14:48] VITALS: BP 132/70; TEMP 98.5; O2SAT 96
[2024-02-26] MEDS: clonazePAM 0.5 MG TAB PO SCH (20:17)
[2024-02-26] MEDS: traZODone 50 MG TAB PO PRN (20:19)
[2024-02-27 05:58] VITALS: BP 127/62; TEMP 97.7; O2SAT 95
[2024-02-27 15:12] VITALS: BP 111/60; TEMP 98.7; O2SAT 97
[2024-02-28 06:43] VITALS: BP 122/60; TEMP 97.8; O2SAT 97
[2024-02-28 16:24] VITALS: BP 117/59; TEMP 98; O2SAT 95
[2024-02-29 06:24] VITALS: BP 122/58; TEMP 97.4; O2SAT 95
[2024-02-29] MEDS: PILL CUTTER 1 EACH XX PRN (12:38)
[2024-02-29] MEDS ORDERED: DIPH-435 PO (13:27)
[2024-02-29] MEDS ORDERED: OLAN1TAB16 PO (13:27)
== END 2024-02-29 15:33 | disposition home or self-care (01) | DRG 885 ==
LOC: M ED 19:31 → EDBD 19:31 → M ED INP 02-25 03:33 → M PSY 02-25 04:35
PROVIDERS: ADMIT Psychiatry & Neurology Neurology; ATTEND Psychiatry & Neurology Neurology
DX: F33.9 Major depressive disorder, recurrent, unspecified (principal); R45.851 Suicidal ideations; C34.31 Malignant neoplasm of lower lobe, right bronchus or lung; J44.1 Chronic obstructive pulmonary disease with (acute) exacerbation; E46 Unspecified protein-calorie malnutrition; Z68.1 Body mass index [BMI] 19.9 or less, adult; R64 Cachexia; I10 Essential (primary) hypertension; E78.5 Hyperlipidemia, unspecified; I73.9 Peripheral vascular disease, unspecified; I73.1 Thromboangiitis obliterans [Buerger's disease]; G62.9 Polyneuropathy, unspecified; N40.0 Benign prostatic hyperplasia without lower urinary tract symptoms; K21.9 Gastro-esophageal reflux disease without esophagitis; T43.022A Poisoning by tetracyclic antidepressants, intentional self-harm, initial encounter; D64.9 Anemia, unspecified; G89.29 Other chronic pain; Z89.512 Acquired absence of left leg below knee; Z91.51 Personal history of suicidal behavior; Z79.02 Long term (current) use of antithrombotics/antiplatelets; Z79.899 Other long term (current) drug therapy; Z88.0 Allergy status to penicillin; Z88.6 Allergy status to analgesic agent

== ENCOUNTER 2024-04-10 11:54 | Inpatient (IN) | payer MEDICARE, MEDICAID ==
[~2024-04-10] VITALS: Ht 182.9 cm; Wt 57.0 kg
[~2024-04-10 11:54] MED LIST changes: +OLAN1TAB16 PO; +POLY17PO18 PO
[2024-04-10 12:28] LABS: BASO % 0.3 % (0.0-1.0); EOS # 0.1 10^3/uL (0.0-0.5); EOS % 0.8 % (0.0-3.0); HEMATOCRIT 35.8 % (42.0-52.0); HEMOGLOBIN 10.9 g/dl (13.5-17.5); LYMPH # 0.3 10^3/uL (1.5-5.0); MEAN CORPUSCULAR HEMOGLOBIN 22.2 pg (27.0-33.0); MEAN CORPUSCULAR HGB CONC 30.4 g/dl (32.0-36.5); MEAN CORPUSCULAR VOLUME 72.8 fl (80.0-96.0); MONO # 0.9 10^3/uL (0.0-0.8); MONO % 10.7 % (2.0-8.0); NEUTROPHILS # 7.3 10^3/uL (1.5-8.5); NEUTROPHILS % 84.9 % (36.0-66.0); PLATELET COUNT, AUTOMATED 285 10^3/uL (150-450); RED BLOOD COUNT 4.92 10^6/uL (4.30-6.10); WHITE BLOOD COUNT 8.6 10^3/uL (4.0-10.0)
[2024-04-10 14:02] LABS: ETHYL ALCOHOL (ETHANOL) < 0.003 % (0.000-0.010)
[2024-04-10 14:03] LABS: OSMOLALITY SERUM 289 MOSM/KG (280-301)
[2024-04-10 14:04] LABS: SALICYLATE LEVEL < 3.0 MG/DL (<30)
[2024-04-10 14:07] LABS: THYROID STIMULATING HORMONE 0.491 uIU/ML (0.55-4.78)
[2024-04-10 14:10] LABS: ALBUMIN 3.6 G/DL (3.2-5.2); ALKALINE PHOSPHATASE 94 U/L (40-129); ALT/SGPT 20 U/L (7.0-40); AST/SGOT 39 U/L (<34); BILIRUBIN,DIRECT 0.2 MG/DL (<0.4); BILIRUBIN,TOTAL 0.7 MG/DL (0.3-1.2); BLOOD UREA NITROGEN 15 MG/DL (9-23); CALCIUM LEVEL 9.1 MG/DL (8.3-10.6); CARBON DIOXIDE LEVEL 27 MMOL/L (20-31); CHLORIDE LEVEL 102 MMOL/L (98-107); CPK CREATINE PHOSPHOKINASE 79 U/L (46-171); CREATININE FOR GFR 0.67 MG/DL (0.70-1.30); GLOMERULAR FILTRATION RATE > 60.0 (>49); GLUCOSE, FASTING 97 MG/DL (74-106); MAGNESIUM LEVEL 1.8 MG/DL (1.8-2.4); POTASSIUM SERUM 5.6 MMOL/L (3.5-5.1); SODIUM LEVEL 135 MMOL/L (136-145); TOTAL PROTEIN 7.6 G/DL (5.7-8.2)
[2024-04-10] MEDS ORDERED: MOM 30ML SUSPENSION UDC PO PRN (14:55)
[2024-04-10] MEDS ORDERED: ISOVUE-370 76% 100ML VIAL As Ordered ONE (15:03)
[2024-04-10 15:16] LABS: FREE T4 1.08 NG/DL (0.89-1.76)
[2024-04-10] MEDS ORDERED: guaiFENesin/CODEINE SYRUP 5 ML UDC PO PRN (15:25)
[2024-04-10] MEDS: ACETAMINOPHEN 325 MG TAB PO PRN (16:08)
[2024-04-10 16:31] VITALS: BP 129/79; TEMP 98.4; O2SAT 97
[2024-04-10] MEDS ORDERED: KETOROLAC 30 MG/ML 1ML VIAL IV PRN (17:10)
[2024-04-10] MEDS: oxyCODONE 5MG TAB PO ONE (17:50)
[2024-04-10] MEDS ORDERED: DIPH-429 PO (17:52)
[2024-04-10] MEDS ORDERED: HOME MED LIST COMPLETE! XX SCH (17:55)
[2024-04-10 20:08] VITALS: BP 114/59; TEMP 97.3; O2SAT 95
[2024-04-10] MEDS: SIMVASTATIN 10 MG TAB PO SCH (21:43)
[2024-04-10] MEDS: OMEPRAZOLE 20MG CAP PO SCH (21:43)
[2024-04-10] MEDS: DOCUSATE SODIUM 100MG CAPSULE PO SCH (21:44)
[2024-04-10] MEDS: FAMOTIDINE 20 MG TAB PO SCH (21:44)
[2024-04-11] MEDS: ALBUTEROL SULFATE 2.5MG/0.5ML INH NEB SOLN INH PRN (04:07)
[2024-04-11 04:56] VITALS: BP 128/84; TEMP 97.9; O2SAT 95
[2024-04-11] MEDS: KETOROLAC 30 MG/ML 1ML VIAL IV PRN (05:24)
[2024-04-11 05:50] LABS: HEMATOCRIT 32.6 % (42.0-52.0); HEMOGLOBIN 9.9 g/dl (13.5-17.5); MEAN CORPUSCULAR HEMOGLOBIN 22.2 pg (27.0-33.0); MEAN CORPUSCULAR HGB CONC 30.4 g/dl (32.0-36.5); MEAN CORPUSCULAR VOLUME 73.1 fl (80.0-96.0); PLATELET COUNT, AUTOMATED 217 10^3/uL (150-450); RED BLOOD COUNT 4.46 10^6/uL (4.30-6.10)
[2024-04-11 06:44] LABS: ALBUMIN 3.3 G/DL (3.2-5.2); ALKALINE PHOSPHATASE 86 U/L (40-129); ALT/SGPT 16 U/L (7.0-40); AST/SGOT 28 U/L (<34); BILIRUBIN,DIRECT 0.2 MG/DL (<0.4); BILIRUBIN,TOTAL 0.5 MG/DL (0.3-1.2); BLOOD UREA NITROGEN 16 MG/DL (9-23); CALCIUM LEVEL 8.4 MG/DL (8.3-10.6); CARBON DIOXIDE LEVEL 27 MMOL/L (20-31); CHLORIDE LEVEL 97 MMOL/L (98-107); CREATININE FOR GFR 0.67 MG/DL (0.70-1.30); GLOMERULAR FILTRATION RATE > 60.0 (>49); GLUCOSE, FASTING 84 MG/DL (74-106); POTASSIUM SERUM 3.9 MMOL/L (3.5-5.1); SODIUM LEVEL 132 MMOL/L (136-145); TOTAL PROTEIN 6.9 G/DL (5.7-8.2)
[2024-04-11] MEDS: TIOTROPIUM INHALER/CAPSULE (SPIRIVA) INH SCH (07:27)
[2024-04-11 08:33] LABS: KETONE, URINE AUTO RFX 1+ mg/dL (NEGATIVE); LEUKOCYTE ESTERASE UR AUTO RFX NEGATIVE (NEGATIVE); MUCUS, URINE RFX LARGE (NEGATIVE); NITRITE, URINE AUTO RFX NEGATIVE (NEGATIVE); RBC, URINE AUTO RFX 0 /HPF (0-3); SQUAM EPITHELIAL CELL UR AURFX 0 /HPF (0-6); WBC, URINE AUTO RFX 1 /HPF (0-3)
[2024-04-11] MEDS: MULTIVITAMINS/MINERALS THERAP 1 TAB PO SCH (08:34)
[2024-04-11] MEDS: CLOPIDOGREL 75 MG TAB PO SCH (08:34)
[2024-04-11] MEDS: FINASTERIDE 5MG TAB PO SCH (08:34)
[2024-04-11] MEDS: LOSARTAN 50MG TABLET PO SCH (08:34)
[2024-04-11] MEDS ORDERED: PERCOCET 5MG/325MG TAB PO PRN (08:40)
[2024-04-11 09:37] LABS: AMPHETAMINES LEVEL URINE NEGATIVE (NEGATIVE); BARBITURATES URINE NEGATIVE (NEGATIVE); BENZODIAZEPINES URINE NEGATIVE (NEGATIVE); COCAINE METABOLITE URINE NEGATIVE (NEGATIVE); METHADONE URINE NEGATIVE (NEGATIVE); PHENCYCLIDINE URINE NEGATIVE (NEGATIVE)
[2024-04-11 09:43] LABS: CANNABINOIDS URINE POSITIVE (NEGATIVE); OPIATES URINE POSITIVE (NEGATIVE)
[2024-04-11 12:00] VITALS: BP 123/76; TEMP 97.5; O2SAT 97
[2024-04-11] MEDS ORDERED: PERCOCET PO (15:40)
[2024-04-11] MEDS: clonazePAM 0.5 MG TAB PO PRN (17:29)
[2024-04-11] MEDS: PERCOCET 5MG/325MG TAB PO PRN (17:29)
== END 2024-04-11 20:22 | DRG 917 ==
LOC: EDBD 11:54 → M ED 11:54 → M ED INP 14:51 → M MSPAV 16:13
PROVIDERS: ADMIT Student in an Organized Health Care Education/Training Program; ATTEND Student in an Organized Health Care Education/Training Program
DX: T45.0X2A Poisoning by antiallergic and antiemetic drugs, intentional self-harm, initial encounter (principal); U07.1 COVID-19; C34.31 Malignant neoplasm of lower lobe, right bronchus or lung; K86.1 Other chronic pancreatitis; R64 Cachexia; E87.5 Hyperkalemia; J43.9 Emphysema, unspecified; J44.9 Chronic obstructive pulmonary disease, unspecified; K21.9 Gastro-esophageal reflux disease without esophagitis; I10 Essential (primary) hypertension; F32.A Depression, unspecified; I73.9 Peripheral vascular disease, unspecified; E05.80 Other thyrotoxicosis without thyrotoxic crisis or storm; N40.0 Benign prostatic hyperplasia without lower urinary tract symptoms; E78.5 Hyperlipidemia, unspecified; G89.3 Neoplasm related pain (acute) (chronic); G54.6 Phantom limb syndrome with pain; K59.00 Constipation, unspecified; Z79.899 Other long term (current) drug therapy; Z88.0 Allergy status to penicillin; Z88.6 Allergy status to analgesic agent; Z87.891 Personal history of nicotine dependence; Z89.512 Acquired absence of left leg below knee; Z79.02 Long term (current) use of antithrombotics/antiplatelets

== ENCOUNTER 2024-04-11 16:23 | Inpatient (IN) | payer MEDICARE, MEDICAID ==
[~2024-04-11] VITALS: Ht 182.9 cm; Wt 57.0 kg
[~2024-04-11 16:23] MED LIST changes: +DIPH-429 PO
[2024-04-11] MEDS ORDERED: MOM 30ML SUSPENSION UDC PO PRN (16:50)
[2024-04-11] MEDS ORDERED: LORazepam 1 MG TAB PO PRN (16:50)
[2024-04-11] MEDS ORDERED: MAALOX 30 ML SUSP *UDC PO PRN (16:50)
[2024-04-11] MEDS ORDERED: OLANZapine ORAL DISINTEGRATING TAB 5MG PO PRN (16:50)
[2024-04-11] MEDS ORDERED: ACETAMINOPHEN 325 MG TAB PO PRN (16:50)
[2024-04-11] MEDS ORDERED: IBUPROFEN 400MG TAB PO PRN (16:50)
[2024-04-11] MEDS ORDERED: HOME MED LIST COMPLETE! XX SCH (22:15)
[2024-04-11 23:32] VITALS: BP 151/74; TEMP 97; O2SAT 99
[2024-04-12 06:40] VITALS: BP 121/67; TEMP 98; O2SAT 97
[2024-04-12] MEDS ORDERED: ALBUTEROL SULFATE 2.5MG/0.5ML INH NEB SOLN INH PRN (08:55)
[2024-04-12] MEDS ORDERED: PERCOCET 5MG/325MG TAB PO PRN ×5 (08:55→13:15)
[2024-04-12] MEDS ORDERED: ONDANSETRON 4MG ORAL DISINTEGRATING TAB PO PRN (09:00)
[2024-04-12] MEDS ORDERED: TIOTROPIUM INHALER/CAPSULE (SPIRIVA) INH SCH (09:00)
[2024-04-12] MEDS: OMEPRAZOLE 20MG CAP PO SCH (09:26)
[2024-04-12] MEDS: oxyCODONE 5MG TAB PO PRN (09:26)
[2024-04-12] MEDS: CLOPIDOGREL 75 MG TAB PO SCH (09:26)
[2024-04-12] MEDS: TIOTROPIUM INHALER/CAPSULE (SPIRIVA) INH SCH (09:27)
[2024-04-12] MEDS: LOSARTAN 50MG TABLET PO SCH (09:27)
[2024-04-12] MEDS: ALBUTEROL SULFATE 2.5MG/0.5ML INH NEB SOLN INH PRN (10:05)
[2024-04-12] MEDS: FINASTERIDE 5MG TAB PO SCH (10:26)
[2024-04-12 16:10] VITALS: BP 116/72; TEMP 98.2; O2SAT 98
[2024-04-12] MEDS: RIVAROXABAN 20MG TAB (XARELTO) PO SCH (17:15)
[2024-04-12] MEDS: PERCOCET 5MG/325MG TAB PO PRN (17:20)
[2024-04-12] MEDS: FAMOTIDINE 20 MG TAB PO SCH (20:37)
[2024-04-12] MEDS: SIMVASTATIN 10 MG TAB PO SCH (20:37)
[2024-04-13 06:39] VITALS: BP 122/67; TEMP 97; O2SAT 100
[2024-04-13] MEDS: ALBUTEROL 90 MCG/ACT 8GM HFA INHALER INH PRN (09:09)
[2024-04-13] MEDS: SERTRALINE HCL 25 MG TABLET PO SCH (11:24)
[2024-04-13 16:26] VITALS: BP 132/71; TEMP 97.3; O2SAT 97
[2024-04-14 06:37] VITALS: BP 124/61; TEMP 97; O2SAT 96
[2024-04-14] MEDS: ONDANSETRON 4MG ORAL DISINTEGRATING TAB PO PRN (06:50)
[2024-04-14 17:43] VITALS: BP 136/60; TEMP 97.5; O2SAT 97
[2024-04-14] MEDS: clonazePAM 0.5 MG TAB PO PRN (21:09)
[2024-04-14] MEDS: diphenhydrAMINE 25MG CAP PO PRN (21:09)
[2024-04-14] MEDS: traZODone 50 MG TAB PO PRN (21:09)
[2024-04-15 06:16] VITALS: BP 111/58; TEMP 98.3; O2SAT 95
[2024-04-15 16:56] VITALS: BP 117/56; TEMP 98.2; O2SAT 97
[2024-04-16 06:34] VITALS: BP 140/60; TEMP 98.1; O2SAT 95
[2024-04-16] MEDS: ALBUTEROL 90 MCG/ACT 8GM HFA INHALER INH PRN (09:05)
[2024-04-16 11:58] LABS: APPEARANCE, URINE CLEAR (CLEAR); BACTERIA, URINE AUTO NEGATIVE (NEGATIVE); BILIRUBIN, URINE AUTO NEGATIVE (NEGATIVE); BLOOD, URINE BLOOD NEGATIVE (NEGATIVE); COLOR, URINE YELLOW (YELLOW); GLUCOSE, URINE (UA) AUTO NEGATIVE (NEGATIVE); KETONE, URINE AUTO NEGATIVE (NEGATIVE); LEUKOCYTE ESTERASE, URINE AUTO NEGATIVE (NEGATIVE); MUCUS, URINE SMALL (NEGATIVE); NITRITE, URINE AUTO NEGATIVE (NEGATIVE); PROTEIN, URINE AUTO NEGATIVE (NEGATIVE); RBC, URINE AUTO 0 /HPF (0-3); SPECIFIC GRAVITY URINE AUTO 1.014 (1.002-1.035); SQUAMOUS EPITHELIAL CELL UR AU 0 /HPF (0-6); UROBILINOGEN, URINE AUTO 0.2 mg/dL (0.0-2.0); WBC, URINE AUTO 0 /HPF (0-3)
[2024-04-16] MEDS: clonazePAM 0.5 MG TAB PO SCH (12:03)
[2024-04-16 15:44] VITALS: BP 109/57; TEMP 98.2; O2SAT 95
[2024-04-17 06:47] VITALS: BP 118/63; TEMP 97.5; O2SAT 95
[2024-04-17] MEDS: SENNA 8.6 MG TAB (SENOKOT) PO PRN (12:10)
[2024-04-17 16:22] VITALS: BP 130/69; TEMP 98.2; O2SAT 96
[2024-04-18 09:45] VITALS: BP 121/71; TEMP 98; O2SAT 96
[2024-04-18 16:41] VITALS: BP 109/55; TEMP 98.1; O2SAT 94
[2024-04-19 16:01] VITALS: BP 102/56; TEMP 98.2; O2SAT 96
[2024-04-19] MEDS: SENNA 8.6 MG TAB (SENOKOT) PO SCH (20:31)
[2024-04-20 06:39] VITALS: BP 129/65; TEMP 97.5; O2SAT 99
[2024-04-20] MEDS: SERTRALINE HCL 50 MG TAB PO SCH (08:54)
[2024-04-20 15:36] VITALS: BP 118/56; TEMP 98.9; O2SAT 95
[2024-04-21 06:35] VITALS: BP 123/59; TEMP 97.6; O2SAT 96
[2024-04-21] MEDS ORDERED: SENNA 8.6 MG TAB (SENOKOT) PO PRN (09:00)
[2024-04-21 16:32] LABS: RSV AMPLIFICATION NEGATIVE (NEGATIVE)
[2024-04-21 16:58] VITALS: BP 104/58; TEMP 98; O2SAT 96
[2024-04-21] MEDS ORDERED: PERCOCET 5MG/325MG TAB PO PRN (18:05)
[2024-04-21] MEDS: PERCOCET 5MG/325MG TAB PO PRN (18:39)
[2024-04-22 06:51] VITALS: BP 112/74; TEMP 97.8; O2SAT 95
[2024-04-22 15:15] VITALS: BP 130/62; TEMP 98; O2SAT 98
[2024-04-23 07:02] VITALS: BP 103/57; TEMP 97.5; O2SAT 95
[2024-04-23 08:05] VITALS: BP 123/56
[2024-04-23 16:21] VITALS: BP 122/60; TEMP 97.8; O2SAT 97
[2024-04-24 06:46] VITALS: BP 117/56; TEMP 98.5; O2SAT 93
[2024-04-24 16:43] VITALS: BP 131/58; TEMP 98.1; O2SAT 97
[2024-04-25 06:27] VITALS: BP 135/64; TEMP 97.2; O2SAT 95
[2024-04-25 08:04] VITALS: BP 124/60
[2024-04-25] MEDS ORDERED: OLAN5ZYD PO (11:29)
[2024-04-25] MEDS ORDERED: CLON0.5T2 PO (11:29)
[2024-04-25] MEDS ORDERED: TIOT18INH INH (11:29)
[2024-04-25] MEDS ORDERED: SENO8.6T5 PO (11:29)
[2024-04-25] MEDS ORDERED: PERCOCET PO ×2 (11:29)
[2024-04-25] MEDS ORDERED: XARE20TA PO (11:29)
[2024-04-25] MEDS ORDERED: TRAZ-252 PO (11:29)
[2024-04-25 13:37] VITALS: BP 124/60; TEMP 97.2; O2SAT 95
== END 2024-04-25 16:05 | disposition home or self-care (01) | DRG 885 ==
LOC: M PSY 20:27
PROVIDERS: ADMIT Psychiatry & Neurology Psychiatry; ATTEND Psychiatry & Neurology Psychiatry
DX: F33.3 Major depressive disorder, recurrent, severe with psychotic symptoms (principal); C34.31 Malignant neoplasm of lower lobe, right bronchus or lung; K86.1 Other chronic pancreatitis; E46 Unspecified protein-calorie malnutrition; E87.5 Hyperkalemia; T45.0X2D Poisoning by antiallergic and antiemetic drugs, intentional self-harm, subsequent encounter; F43.21 Adjustment disorder with depressed mood; G89.3 Neoplasm related pain (acute) (chronic); F41.1 Generalized anxiety disorder; J44.9 Chronic obstructive pulmonary disease, unspecified; K21.9 Gastro-esophageal reflux disease without esophagitis; I10 Essential (primary) hypertension; E78.5 Hyperlipidemia, unspecified; N40.0 Benign prostatic hyperplasia without lower urinary tract symptoms; K59.00 Constipation, unspecified; I73.9 Peripheral vascular disease, unspecified; G54.6 Phantom limb syndrome with pain; Z89.512 Acquired absence of left leg below knee; Z79.02 Long term (current) use of antithrombotics/antiplatelets; Z79.899 Other long term (current) drug therapy

== ENCOUNTER 2024-05-02 18:03 | Inpatient (IN) | payer MEDICARE, MEDICAID ==
[~2024-05-02] VITALS: Ht 182.9 cm; Wt 55.7 kg
[~2024-05-02 18:03] MED LIST changes: +OLAN5ZYD PO; +TIOT18INH INH
[2024-05-02 18:44] LABS: BASO % 0.5 % (0.0-1.0); EOS # 0.2 10^3/uL (0.0-0.5); EOS % 1.9 % (0.0-3.0); HEMATOCRIT 35.3 % (42.0-52.0); HEMOGLOBIN 10.6 g/dl (13.5-17.5); LYMPH # 0.9 10^3/uL (1.5-5.0); LYMPH % 10.8 % (24.0-44.0); MEAN CORPUSCULAR HEMOGLOBIN 22.4 pg (27.0-33.0); MEAN CORPUSCULAR VOLUME 74.5 fl (80.0-96.0); MONO # 0.5 10^3/uL (0.0-0.8); MONO % 6.7 % (2.0-8.0); NEUTROPHILS # 6.3 10^3/uL (1.5-8.5); NEUTROPHILS % 79.6 % (36.0-66.0); PLATELET COUNT, AUTOMATED 339 10^3/uL (150-450); RED BLOOD COUNT 4.74 10^6/uL (4.30-6.10)
[2024-05-02 19:05] LABS: ETHYL ALCOHOL (ETHANOL) 0.005 % (0.000-0.010)
[2024-05-02 19:06] LABS: SALICYLATE LEVEL < 3.0 MG/DL (<30)
[2024-05-02 19:09] LABS: THYROID STIMULATING HORMONE 0.561 uIU/ML (0.55-4.78)
[2024-05-02 19:18] LABS: ALBUMIN 3.4 G/DL (3.2-5.2); ALKALINE PHOSPHATASE 91 U/L (40-129); ALT/SGPT 10 U/L (7.0-40); AST/SGOT 16 U/L (<34); BILIRUBIN,DIRECT 0.1 MG/DL (<0.4); BILIRUBIN,TOTAL 0.4 MG/DL (0.3-1.2); BLOOD UREA NITROGEN 9 MG/DL (9-23); CALCIUM LEVEL 8.9 MG/DL (8.3-10.6); CARBON DIOXIDE LEVEL 23 MMOL/L (20-31); CHLORIDE LEVEL 108 MMOL/L (98-107); CPK CREATINE PHOSPHOKINASE 69 U/L (46-171); CREATININE FOR GFR 0.61 MG/DL (0.70-1.30); GLOMERULAR FILTRATION RATE > 60.0 (>49); GLUCOSE, FASTING 86 MG/DL (74-106); POTASSIUM SERUM 4.3 MMOL/L (3.5-5.1); SODIUM LEVEL 141 MMOL/L (136-145); TOTAL PROTEIN 7.5 G/DL (5.7-8.2)
[2024-05-02] MEDS: ALBUTEROL 90 MCG/ACT 8GM HFA INHALER INH ONE (21:49)
[2024-05-02] MEDS ORDERED: OLAN5ZYD PO (22:46)
[2024-05-02] MEDS ORDERED: PANT40TA29 PO (22:46)
[2024-05-02] MEDS ORDERED: SENN-186 PO (22:46)
[2024-05-02] MEDS ORDERED: DIPH-429 PO (22:47)
[2024-05-02] MEDS ORDERED: HOME MED LIST COMPLETE! XX SCH (22:50)
[2024-05-02] MEDS: ONDANSETRON 4MG ORAL DISINTEGRATING TAB PO ONE (23:00)
[2024-05-02 23:05] VITALS: O2SAT 94
[2024-05-02 23:52] LABS: AMPHETAMINES LEVEL URINE NEGATIVE (NEGATIVE); BARBITURATES URINE NEGATIVE (NEGATIVE); BENZODIAZEPINES URINE NEGATIVE (NEGATIVE); COCAINE METABOLITE URINE NEGATIVE (NEGATIVE); METHADONE URINE NEGATIVE (NEGATIVE)
[2024-05-02 23:53] LABS: OPIATES URINE NEGATIVE (NEGATIVE); PHENCYCLIDINE URINE NEGATIVE (NEGATIVE)
[2024-05-02 23:58] LABS: CANNABINOIDS URINE POSITIVE (NEGATIVE)
[2024-05-03] MEDS: PERCOCET 5MG/325MG TAB PO ONE (01:27)
[2024-05-03] MEDS: SIMVASTATIN 10 MG TAB PO ONE (01:27)
[2024-05-03] MEDS: traZODone 50 MG TAB PO ONE (01:27)
[2024-05-03] MEDS: RIVAROXABAN 20MG TAB (XARELTO) PO ONE (01:27)
[2024-05-03] MEDS: FAMOTIDINE 20 MG TAB PO ONE (01:27)
[2024-05-03] MEDS: ONDANSETRON 4MG ORAL DISINTEGRATING TAB PO ONE ×2 (06:53→20:55)
[2024-05-03] MEDS: CLOPIDOGREL 75 MG TAB PO ONE (09:00)
[2024-05-03] MEDS: ONDANSETRON 4MG ORAL DISINTEGRATING TAB PO PRN (10:27)
[2024-05-03] MEDS ORDERED: ALBUTEROL 90 MCG/ACT 8GM HFA INHALER INH PRN (17:10)
[2024-05-03] MEDS ORDERED: clonazePAM 0.5 MG TAB PO PRN (17:10)
[2024-05-03] MEDS ORDERED: ALBUTEROL SULFATE 2.5MG/0.5ML INH NEB SOLN INH PRN (17:10)
[2024-05-03] MEDS ORDERED: traZODone 50 MG TAB PO PRN (17:10)
[2024-05-03] MEDS ORDERED: OLANZapine 5 MG TAB PO PRN (17:10)
[2024-05-03] MEDS ORDERED: SENNA 8.6 MG TAB (SENOKOT) PO PRN (17:10)
[2024-05-03] MEDS: RIVAROXABAN 20MG TAB (XARELTO) PO SCH (18:00)
[2024-05-03] MEDS ORDERED: MOM 30ML SUSPENSION UDC PO PRN (20:15)
[2024-05-03] MEDS ORDERED: MAALOX 30 ML SUSP *UDC PO PRN (20:15)
[2024-05-03] MEDS ORDERED: LORazepam 2 MG TAB PO PRN (20:15)
[2024-05-03] MEDS ORDERED: ACETAMINOPHEN 325 MG TAB PO PRN (20:15)
[2024-05-03] MEDS ORDERED: diphenhydrAMINE 50MG CAP PO PRN (21:00)
[2024-05-03] MEDS: MIRTAZAPINE 15 MG TAB PO SCH (21:57)
[2024-05-03] MEDS: SIMVASTATIN 10 MG TAB PO SCH (21:57)
[2024-05-03] MEDS: FAMOTIDINE 20 MG TAB PO SCH (21:57)
[2024-05-03] MEDS: THIAMINE 100 MG TAB PO SCH (21:58)
[2024-05-03 22:00] VITALS: BP 139/63; TEMP 98.3; O2SAT 97
[2024-05-04 06:35] VITALS: BP 145/69; TEMP 98.1; O2SAT 100
[2024-05-04 06:37] VITALS: BP 145/69
[2024-05-04] MEDS ORDERED: TIOTROPIUM INHALER/CAPSULE (SPIRIVA) INH SCH (08:00)
[2024-05-04] MEDS ORDERED: MIRALAX *UNIT DOSE* 17GM PACKET PO SCH (09:00)
[2024-05-04] MEDS ORDERED: SERTRALINE HCL 50 MG TAB PO SCH (09:00)
[2024-05-04] MEDS ORDERED: FINASTERIDE 5MG TAB PO SCH (09:00)
[2024-05-04] MEDS ORDERED: CLOPIDOGREL 75 MG TAB PO SCH (09:00)
[2024-05-04] MEDS ORDERED: LOSARTAN 25 MG TAB PO SCH (09:00)
[2024-05-04] MEDS ORDERED: MULTIVITAMINS/MINERALS THERAP 1 TAB PO SCH (09:00)
[2024-05-04] MEDS ORDERED: PANTOPRAZOLE 40MG TAB (PROTONIX) PO SCH (09:00)
[2024-05-04] MEDS: MIRALAX *UNIT DOSE* 17GM PACKET PO SCH (09:00)
[2024-05-04] MEDS ORDERED: OLANZapine 5 MG TAB PO PRN (09:15)
[2024-05-04] MEDS: MULTIVITAMINS/MINERALS THERAP 1 TAB PO SCH (09:15)
[2024-05-04] MEDS: CLOPIDOGREL 75 MG TAB PO SCH (09:15)
[2024-05-04] MEDS: FOLIC ACID 1MG TAB PO SCH (09:15)
[2024-05-04 10:30] VITALS: BP 138/69
[2024-05-04] MEDS: PANTOPRAZOLE 40MG TAB (PROTONIX) PO SCH (10:31)
[2024-05-04] MEDS: TIOTROPIUM INHALER/CAPSULE (SPIRIVA) INH SCH (10:31)
[2024-05-04] MEDS: FINASTERIDE 5MG TAB PO SCH (10:32)
[2024-05-04] MEDS: LOSARTAN 25 MG TAB PO SCH (10:32)
[2024-05-04] MEDS: SERTRALINE HCL 50 MG TAB PO SCH (10:32)
[2024-05-04] MEDS: PERCOCET 5MG/325MG TAB PO ONE (11:50)
[2024-05-04 16:57] VITALS: BP 143/78; TEMP 98.3; O2SAT 99
[2024-05-04 17:00] VITALS: BP 143/78
[2024-05-04] MEDS: RIVAROXABAN 20MG TAB (XARELTO) PO SCH (18:05)
[2024-05-04] MEDS: FAMOTIDINE 20 MG TAB PO SCH (21:09)
[2024-05-04] MEDS: SIMVASTATIN 10 MG TAB PO SCH (21:09)
[2024-05-04] MEDS: clonazePAM 0.5 MG TAB PO PRN (21:10)
[2024-05-04] MEDS: traZODone 50 MG TAB PO PRN (21:10)
[2024-05-04] MEDS: diphenhydrAMINE 50MG CAP PO PRN (21:10)
[2024-05-04] MEDS: MIRTAZAPINE 15 MG TAB PO SCH (21:10)
[2024-05-05 01:41] VITALS: BP 136/82
[2024-05-05 06:24] VITALS: BP 119/69; TEMP 97.1; O2SAT 96
[2024-05-05] MEDS: PERCOCET 5MG/325MG TAB PO ONE (09:09)
[2024-05-05] MEDS: ONDANSETRON 4MG ORAL DISINTEGRATING TAB PO PRN (12:23)
[2024-05-05] MEDS: PERCOCET 5MG/325MG TAB PO PRN (16:06)
[2024-05-05 16:10] VITALS: BP 144/78; TEMP 97.3; O2SAT 98
[2024-05-05] MEDS: ALBUTEROL SULFATE 2.5MG/0.5ML INH NEB SOLN INH PRN (19:48)
[2024-05-05] MEDS: diphenhydrAMINE 25MG CAP PO PRN (21:01)
[2024-05-06 06:57] VITALS: BP 130/70; TEMP 97; O2SAT 95
[2024-05-06 18:04] VITALS: BP 120/76; TEMP 97.4; O2SAT 97
[2024-05-07 06:49] VITALS: BP 103/57; TEMP 97.6; O2SAT 96
[2024-05-07 08:40] VITALS: BP 132/63
[2024-05-07 15:49] VITALS: BP 107/57; TEMP 97.4; O2SAT 95
[2024-05-08 06:41] VITALS: BP 121/59; TEMP 96.8; O2SAT 92
[2024-05-08 08:07] VITALS: BP 129/60
[2024-05-08 15:59] VITALS: BP 123/66; TEMP 97.4; O2SAT 95
[2024-05-09 06:52] VITALS: BP 116/59; TEMP 97.6; O2SAT 95
[2024-05-09] MEDS: SENNA 8.6 MG TAB (SENOKOT) PO PRN (09:26)
[2024-05-09 15:33] VITALS: BP 109/53; TEMP 97.8; O2SAT 95
[2024-05-10 06:26] VITALS: BP 149/67; TEMP 97.1; O2SAT 95
[2024-05-10] MEDS: ALBUTEROL 90 MCG/ACT 8GM HFA INHALER INH PRN (06:37)
[2024-05-10] MEDS: PERCOCET 5MG/325MG TAB PO PRN (06:42)
[2024-05-10 15:40] VITALS: BP 117/56; TEMP 97.9; O2SAT 95
[2024-05-11 06:25] VITALS: BP 109/63; TEMP 97.7; O2SAT 96
[2024-05-11 08:02] VITALS: BP 116/61
[2024-05-11] MEDS ORDERED: DIPH-429 PO (08:05)
[2024-05-11] MEDS ORDERED: PANT40TA29 PO (08:05)
[2024-05-11] MEDS ORDERED: VENTAER INH (08:05)
[2024-05-11] MEDS ORDERED: ONDA-282 PO (08:05)
[2024-05-11] MEDS ORDERED: POLY17PO18 PO (08:05)
[2024-05-11] MEDS ORDERED: CLON0.5T2 PO (08:05)
[2024-05-11] MEDS ORDERED: SENN-186 PO (08:05)
[2024-05-11] MEDS ORDERED: TRAZ-252 PO (08:05)
[2024-05-11] MEDS ORDERED: CLOP75TA2 PO (08:05)
[2024-05-11 09:56] VITALS: BP 116/61; TEMP 97.7; O2SAT 96
== END 2024-05-11 12:34 | disposition home or self-care (01) | DRG 885 ==
LOC: M ED 18:03 → EDBD 18:03 → M ED INP 05-03 20:13 → M PSY 05-03 22:14
PROVIDERS: ADMIT Psychiatry & Neurology Neurology; ATTEND Psychiatry & Neurology Psychiatry
DX: F33.9 Major depressive disorder, recurrent, unspecified (principal); C34.90 Malignant neoplasm of unspecified part of unspecified bronchus or lung; E46 Unspecified protein-calorie malnutrition; Z59.10 Inadequate housing, unspecified; I10 Essential (primary) hypertension; E78.5 Hyperlipidemia, unspecified; J44.9 Chronic obstructive pulmonary disease, unspecified; I73.9 Peripheral vascular disease, unspecified; G62.9 Polyneuropathy, unspecified; K21.9 Gastro-esophageal reflux disease without esophagitis; N40.0 Benign prostatic hyperplasia without lower urinary tract symptoms; D53.9 Nutritional anemia, unspecified; G54.6 Phantom limb syndrome with pain; G89.29 Other chronic pain; Z79.02 Long term (current) use of antithrombotics/antiplatelets; Z79.01 Long term (current) use of anticoagulants; Z79.899 Other long term (current) drug therapy; Z88.0 Allergy status to penicillin; Z88.6 Allergy status to analgesic agent; Z91.198 Patient's noncompliance with other medical treatment and regimen for other reason; Z91.51 Personal history of suicidal behavior; Z95.820 Peripheral vascular angioplasty status with implants and grafts; Z89.512 Acquired absence of left leg below knee; Z90.49 Acquired absence of other specified parts of digestive tract; Z87.891 Personal history of nicotine dependence

== ENCOUNTER 2024-05-29 10:51 | Inpatient (IN) | payer MEDICARE, MEDICAID ==
[~2024-05-29] VITALS: Ht 182.9 cm; Wt 52.7 kg
[~2024-05-29 10:51] MED LIST changes: +DOXY-442 PO; -DOXY100C82 PO; +ONDA-282 PO; +PANT40TA29 PO
[2024-05-29 11:40] LABS: BASO % 0.5 % (0.0-1.0); EOS # 0.1 10^3/uL (0.0-0.5); EOS % 1.4 % (0.0-3.0); HEMATOCRIT 37.3 % (42.0-52.0); HEMOGLOBIN 11.5 g/dl (13.5-17.5); LYMPH # 1.1 10^3/uL (1.5-5.0); LYMPH % 17.2 % (24.0-44.0); MEAN CORPUSCULAR HEMOGLOBIN 22.7 pg (27.0-33.0); MEAN CORPUSCULAR HGB CONC 30.8 g/dl (32.0-36.5); MEAN CORPUSCULAR VOLUME 73.6 fl (80.0-96.0); MONO # 0.6 10^3/uL (0.0-0.8); MONO % 9.5 % (2.0-8.0); NEUTROPHILS # 4.6 10^3/uL (1.5-8.5); NEUTROPHILS % 70.9 % (36.0-66.0); PLATELET COUNT, AUTOMATED 317 10^3/uL (150-450); RED BLOOD COUNT 5.07 10^6/uL (4.30-6.10); WHITE BLOOD COUNT 6.5 10^3/uL (4.0-10.0)
[2024-05-29 12:00] LABS: ETHYL ALCOHOL (ETHANOL) < 0.003 % (0.000-0.010)
[2024-05-29 12:02] LABS: ALBUMIN 3.6 G/DL (3.2-5.2); ALKALINE PHOSPHATASE 70 U/L (40-129); ALT/SGPT < 9 U/L (7.0-40); AST/SGOT 30 U/L (<34); BILIRUBIN,DIRECT 0.1 MG/DL (<0.4); BILIRUBIN,TOTAL 0.5 MG/DL (0.3-1.2); BLOOD UREA NITROGEN 15 MG/DL (9-23); CALCIUM LEVEL 8.7 MG/DL (8.3-10.6); CARBON DIOXIDE LEVEL 25 MMOL/L (20-31); CHLORIDE LEVEL 104 MMOL/L (98-107); CREATININE FOR GFR 0.61 MG/DL (0.70-1.30); GLOMERULAR FILTRATION RATE > 60.0 (>49); GLUCOSE, FASTING 83 MG/DL (74-106); POTASSIUM SERUM 4.9 MMOL/L (3.5-5.1); SALICYLATE LEVEL < 3.0 MG/DL (<30); SODIUM LEVEL 137 MMOL/L (136-145); TOTAL PROTEIN 7.4 G/DL (5.7-8.2)
[2024-05-29 12:04] LABS: CPK CREATINE PHOSPHOKINASE 64 U/L (46-171); THYROID STIMULATING HORMONE 0.269 uIU/ML (0.55-4.78)
[2024-05-29 13:01] LABS: FREE T4 1.19 NG/DL (0.89-1.76)
[2024-05-29 13:37] LABS: AMPHETAMINES LEVEL URINE NEGATIVE (NEGATIVE); BARBITURATES URINE NEGATIVE (NEGATIVE); BENZODIAZEPINES URINE NEGATIVE (NEGATIVE); COCAINE METABOLITE URINE NEGATIVE (NEGATIVE); METHADONE URINE NEGATIVE (NEGATIVE); OPIATES URINE NEGATIVE (NEGATIVE); PHENCYCLIDINE URINE NEGATIVE (NEGATIVE)
[2024-05-29 13:43] LABS: CANNABINOIDS URINE POSITIVE (NEGATIVE)
[2024-05-29] MEDS ORDERED: ISOVUE-370 76% 100ML VIAL As Ordered ONE (16:33)
[2024-05-29] MEDS ORDERED: OLANZapine ORAL DISINTEGRATING TAB 5MG PO PRN (17:45)
[2024-05-29] MEDS ORDERED: MAALOX 30 ML SUSP *UDC PO PRN (17:45)
[2024-05-29] MEDS ORDERED: MOM 30ML SUSPENSION UDC PO PRN (17:45)
[2024-05-29] MEDS ORDERED: ACETAMINOPHEN 325 MG TAB PO PRN (17:45)
[2024-05-29] MEDS ORDERED: ALBUTEROL 90 MCG/ACT 8GM HFA INHALER INH PRN (19:05)
[2024-05-29] MEDS: IPRATROPIUM 0.5MG/ALBUTEROL 2.5MG INH SOL UD 3ML NEB PRN (19:19)
[2024-05-29 19:34] VITALS: BP 140/81; TEMP 97.5; O2SAT 100
[2024-05-29] MEDS: PERCOCET 5MG/325MG TAB PO PRN (20:49)
[2024-05-30 06:34] VITALS: BP 101/51; TEMP 97.3; O2SAT 95
[2024-05-30] MEDS: SERTRALINE HCL 50 MG TAB PO SCH (13:23)
[2024-05-30] MEDS ORDERED: MIRA3350 PO (14:18)
[2024-05-30] MEDS ORDERED: ONDA-282 PO (14:18)
[2024-05-30] MEDS ORDERED: MULT-90 PO (14:18)
[2024-05-30] MEDS ORDERED: TIOT18INH INH (14:18)
[2024-05-30] MEDS ORDERED: DIPH-435 PO (14:18)
[2024-05-30] MEDS ORDERED: OXYC1TAB23 PO (14:18)
[2024-05-30] MEDS ORDERED: SIMV-252 PO (14:18)
[2024-05-30] MEDS ORDERED: HOME MED LIST COMPLETE! XX SCH (14:20)
[2024-05-30] MEDS: PANTOPRAZOLE 40MG TAB (PROTONIX) PO SCH (15:14)
[2024-05-30] MEDS: CLOPIDOGREL 75 MG TAB PO SCH (15:14)
[2024-05-30] MEDS: TIOTROPIUM BROM 2.5MCG/ACTUATION 4GM INH IH SCH (15:17)
[2024-05-30 15:50] VITALS: BP 122/58; TEMP 97.3; O2SAT 97
[2024-05-30] MEDS: FINASTERIDE 5MG TAB PO SCH (17:22)
[2024-05-30] MEDS: RIVAROXABAN 20MG TAB (XARELTO) PO SCH (17:22)
[2024-05-30] MEDS: MIRTAZAPINE 15 MG TAB PO SCH (20:30)
[2024-05-30] MEDS: diphenhydrAMINE 25MG CAP PO PRN (20:30)
[2024-05-30] MEDS: traZODone 50 MG TAB PO PRN (20:30)
[2024-05-30] MEDS: SENNA 8.6 MG TAB (SENOKOT) PO SCH (20:30)
[2024-05-30] MEDS: SIMVASTATIN 10 MG TAB PO SCH (20:30)
[2024-05-31 06:33] VITALS: BP 117/59; TEMP 97.4; O2SAT 96
[2024-05-31 15:44] VITALS: BP 134/69; TEMP 97.7; O2SAT 94
[2024-06-01 06:46] VITALS: BP 125/61; TEMP 97.1; O2SAT 95
[2024-06-01 15:27] VITALS: BP 119/71; TEMP 97.3; O2SAT 95
[2024-06-02 06:31] VITALS: BP 132/75; TEMP 97.8; O2SAT 100
[2024-06-02 16:21] VITALS: BP 155/73; TEMP 98.2; O2SAT 97
[2024-06-02] MEDS: FAMOTIDINE 20 MG TAB PO SCH (20:03)
[2024-06-03 06:49] VITALS: BP 148/65; TEMP 97.4; O2SAT 96
[2024-06-03] MEDS ORDERED: PERCOCET PO (07:19)
== END 2024-06-03 13:14 | disposition home or self-care (01) | DRG 885 ==
LOC: M ED 10:51 → EDBD 10:51 → M ED INP 17:45 → M PSY 18:51
PROVIDERS: ADMIT Psychiatry & Neurology Neurology; ATTEND Psychiatry & Neurology Psychiatry
DX: F33.1 Major depressive disorder, recurrent, moderate (principal); C34.90 Malignant neoplasm of unspecified part of unspecified bronchus or lung; R45.851 Suicidal ideations; I10 Essential (primary) hypertension; E78.5 Hyperlipidemia, unspecified; J44.9 Chronic obstructive pulmonary disease, unspecified; I73.9 Peripheral vascular disease, unspecified; G62.9 Polyneuropathy, unspecified; N40.0 Benign prostatic hyperplasia without lower urinary tract symptoms; G54.6 Phantom limb syndrome with pain; K21.9 Gastro-esophageal reflux disease without esophagitis; Z89.512 Acquired absence of left leg below knee; Z88.0 Allergy status to penicillin; Z88.6 Allergy status to analgesic agent; Z87.891 Personal history of nicotine dependence; Z95.820 Peripheral vascular angioplasty status with implants and grafts; Z79.02 Long term (current) use of antithrombotics/antiplatelets; Z79.01 Long term (current) use of anticoagulants; Z79.899 Other long term (current) drug therapy; Z91.198 Patient's noncompliance with other medical treatment and regimen for other reason

== ENCOUNTER 2024-08-12 21:48 | Inpatient (IN) | payer MEDICARE, MEDICAID ==
[~2024-08-12 21:48] MED LIST changes: +MIRA3350 PO; +MULT-90 PO; -PRED50TA PO; +PRED50TA57 PO; +SENN-225 PO; -SENO8.6T5 PO; +SIMV-252 PO
[2024-08-12] MEDS ORDERED: ACETAMINOPHEN 325 MG TAB PO PRN (21:55)
[2024-08-12] MEDS ORDERED: ONDANSETRON 4MG 2ML VIAL IV PRN (21:55)
[2024-08-12] MEDS: LORazepam 1 MG TAB PO PRN (22:50)
[2024-08-12] MEDS: MORPHINE 10 MG/0.5 ML ORAL CONCENTRATE SOLUTION U/D SL PRN (22:51)
[2024-08-13] MEDS: IPRATROPIUM 0.5 MG/ALBUTEROL 2.5 MG INH SOL UD 3 ML NEB PRN (04:35)
[2024-08-14] MEDS: ONDANSETRON 4MG ORAL DISINTEGRATING TAB PO PRN (14:37)
[2024-08-17 21:00] VITALS: TEMP 98.5; O2SAT 93
[2024-08-18] MEDS: OMEPRAZOLE 20MG CAP PO SCH ×2 (13:28→21:00)
[2024-08-18] MEDS: FINASTERIDE 5 MG TAB PO SCH (13:29)
[2024-08-18] MEDS: SERTRALINE HCL 50 MG TAB PO SCH (13:29)
[2024-08-18] MEDS: RIVAROXABAN 20MG TAB PO SCH (18:00)
[2024-08-18] MEDS ORDERED: OMEPRAZOLE 20MG CAP PO SCH (20:30)
[2024-08-18] MEDS: FAMOTIDINE 20 MG TAB PO SCH (21:00)
[2024-08-18] MEDS: MORPHINE 10 MG/0.5 ML ORAL CONCENTRATE SOLUTION U/D SL ONE (22:05)
[2024-08-19] MEDS: MORPHINE 10 MG/0.5 ML ORAL CONCENTRATE SOLUTION U/D SL PRN ×2 (01:11→23:04)
[2024-08-19] MEDS: MORPHINE 10 MG/0.5 ML ORAL CONCENTRATE SOLUTION U/D SL ONE (12:28)
[2024-08-19] MEDS: LORazepam 1 MG TAB PO SCH (12:28)
[2024-08-19] MEDS: MORPHINE 10 MG/0.5 ML ORAL CONCENTRATE SOLUTION U/D SL SCH (12:29)
[2024-08-22 10:27] VITALS: O2SAT 96
[2024-08-22] MEDS: MORPHINE 10 MG/0.5 ML ORAL CONCENTRATE SOLUTION U/D SL SCH (12:59)
[2024-08-23] MEDS: MORPHINE 10 MG/0.5 ML ORAL CONCENTRATE SOLUTION U/D SL SCH (17:44)
[2024-08-27] MEDS: guaiFENesin SYRUP 200 MG/10 ML UDC PO PRN (11:53)
[2024-08-29] MEDS: MORPHINE 10 MG/0.5 ML ORAL CONCENTRATE SOLUTION U/D SL PRN (10:38)
[2024-08-29] MEDS: NICOTINE 21 MG/24 HR 1 EA TRANSDERMAL TD SCH (12:56)
[2024-08-31] MEDS: OLANZapine ORAL DISINTEGRATING TAB 5MG PO SCH (20:55)
[2024-09-01] MEDS: OLANZapine ORAL DISINTEGRATING TAB 5MG PO SCH (21:47)
[2024-09-05] MEDS: MORPHINE 10 MG/0.5 ML ORAL CONCENTRATE SOLUTION U/D SL PRN (11:22)
[2024-09-05] MEDS: MORPHINE 10 MG/0.5 ML ORAL CONCENTRATE SOLUTION U/D SL SCH (13:37)
[2024-09-06] MEDS: HALOPERIDOL 2 MG TAB PO PRN (21:37)
[2024-09-08] MEDS ORDERED: PILL CUTTER 1 EACH XX PRN (15:20)
[2024-09-08] MEDS: MORPHINE 10 MG/0.5 ML ORAL CONCENTRATE SOLUTION U/D SL SCH (17:45)
[2024-09-09] MEDS: MORPHINE 10 MG/0.5 ML ORAL CONCENTRATE SOLUTION U/D SL PRN (23:08)
[2024-09-10] MEDS: HALOPERIDOL 2 MG TAB PO PRN (21:07)
[2024-09-11] MEDS: SCOPOLAMINE 1MG TRANSDERMAL PATCH TOP SCH (10:38)
[2024-09-11] MEDS: BISACODYL 10 MG SUPP PR PRN (10:38)
[2024-09-15] MEDS ORDERED: OLANZapine INTRAMUSCULAR 10MG VIAL IM PRN (23:55)
[2024-09-16] MEDS: HALOPERIDOL LACTATE 5 MG/ML VIAL IM PRN (00:13)
[2024-09-16] MEDS: HALOPERIDOL 2 MG TAB PO SCH ×2 (06:00→16:45)
[2024-09-19] MEDS: MORPHINE 10 MG/0.5 ML ORAL CONCENTRATE SOLUTION U/D SL SCH (15:08)
[2024-09-19] MEDS: MORPHINE 10 MG/0.5 ML ORAL CONCENTRATE SOLUTION U/D SL PRN (19:34)
== END 2024-09-24 17:15 | disposition expired | DRG 951 ==
LOC: M ED INP 21:48 → M MSPAV 22:24
PROVIDERS: ADMIT Internal Medicine; ATTEND Internal Medicine
DX: Z51.5 Encounter for palliative care (principal); G92.8 Other toxic encephalopathy; C34.31 Malignant neoplasm of lower lobe, right bronchus or lung; K86.1 Other chronic pancreatitis; E46 Unspecified protein-calorie malnutrition; R64 Cachexia; J44.9 Chronic obstructive pulmonary disease, unspecified; K21.9 Gastro-esophageal reflux disease without esophagitis; I10 Essential (primary) hypertension; E78.5 Hyperlipidemia, unspecified; N40.0 Benign prostatic hyperplasia without lower urinary tract symptoms; K59.00 Constipation, unspecified; G54.6 Phantom limb syndrome with pain; F32.9 Major depressive disorder, single episode, unspecified; Z66 Do not resuscitate; R54 Age-related physical debility; Z91.51 Personal history of suicidal behavior; F41.9 Anxiety disorder, unspecified; R41.0 Disorientation, unspecified; I73.1 Thromboangiitis obliterans [Buerger's disease]; R44.1 Visual hallucinations; R57.1 Hypovolemic shock; Z89.512 Acquired absence of left leg below knee; Z90.49 Acquired absence of other specified parts of digestive tract; Z87.891 Personal history of nicotine dependence; Z79.01 Long term (current) use of anticoagulants; Z79.899 Other long term (current) drug therapy; Z88.0 Allergy status to penicillin; Z88.6 Allergy status to analgesic agent